=== PATIENT | male | born 1960 | race Caucasian/White ===

== ENCOUNTER → 2018-03-26 07:04 | Outpatient (CLI) | payer OTHER, SELFPAY ==
[2018-03-26 08:46] LABS: ALB/GLOB Ratio 0.9 RATIO (0.9-2.4); AST(SGOT) 20 U/L (15-37); Alanine Aminotransfer ALT/SGPT 26 U/L (16-61); Albumin, Serum 3.7 g/dL (3.2-5.0); Alkaline Phosphatase 91 U/L (45-117); Anion Gap 8 (5-15); BUN 16 mg/dL (7-18); BUN/Creat Ratio 16.9 RATIO (10-20); Calcium,Total 8.6 mg/dL (8.5-10.1); Chloride 107 mmol/L (98-107); Cholesterol 195 mg/dL (200); Creatinine, Serum 0.94 mg/dL (0.70-1.30); EST Glomerular Filtration Rate 87 mL/min (>60); Est Glom Filt Rate - Afr Amer 105 mL/min (>60); Glucose 114 mg/dL (74-106); High Density Lipoprotein 37 mg/dL; PSA,Total - Annual Screen 0.68 ng/mL (0.00-4.00); Potassium 4.4 mmol/L (3.5-5.1); Protein, Total 7.7 g/dL (6.4-8.2); Sodium Level 141 mmol/L (136-145); Triglycerides 106 mg/dL; Very Low Density Lipoprotein 21 mg/dL (5-40)
== END ==
PROVIDERS: Family Provider Family Medicine; PCP Family Medicine; Visit Provider Family Medicine
DX: E29.1 Testicular hypofunction (principal)
CPT/HCPCS: 36415; 80053; 80061; 84153; 84403; G0103

== ENCOUNTER 2018-04-18 17:00 | Outpatient (RCR) | payer OTHER, SELFPAY ==
--- NOTE | 2017-12-15 15:30 | HP.PTEVAL ---
Patient's Visit Information SABAS HENSON is a 57 year old M referred to Physical Therapy by CRISTHIAN TRAYLOR with a diagnosis of R tibial Fx. Date of Evaluation: 12/15/17 Physical Therapist: Ham Burnham PT, - Visit Plan Frequency: 2-3x /Week Duration: 4-6 Weeks Plan: R LE stretching and strengthening, balance and proprio, core, nustep, and HEP - Subjective Subjective: DOS: 09/13/17, then again o n 09/22/17. Pt reports he fractured his L Tibia and had to have an OREF placed on his R LE. Pt reports he was attempting to climb on his roof when he fell and suffered a fractured LE. Pt reports he had to go up to [employer] for [employer]. Pt notes he is slowly getting better now. Pt reports he has been NWB'ing up til one week ago, now is ambulating with 2 crutches. No prior R knee complications. No T or N at this time. No sleep diff at this time. 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 Pt has stairs at home and negotiates them one step at a time. 0/10 at rest, 5/10 at worst (walking). HEP of AP's - Pain R knee Pain Intensity (Out of 10): 0 Pain Intensity Range: 5 - Objective Palpation: Pt has 2+ pitting edema at this time. Incisions still healing. No signs of infection. Neuro: B LE sensation is WNL to light touch. Unable to assess reflexes. ROM: L knee 0-130 degrees, R knee 0-7-70. MMT: L knee 5/5 throubghout, R knee 3/5 thoughout. Girth at joint line: L knee 33 cm, R knee 38 cm - Goals Goal 1:: Decrease R LE pain x 50% to aid with IADL's Goal Time Frame: 4-6 Weeks Goal 2:: Increase R knee ROM x 40 degrees to aid with restoring a more normal gait pattern Goal Time Frame: 4-6 Weeks Goal 3:: Increase R LE strength x 1 grade to aid with RTW without limitations Goal Time Frame: 4-6 Weeks Goal 4:: I with HEP Goal Time Frame: 4-6 Weeks - Rehabilitation Potential Physical Therapy Diagnosis: R LE pain, weakness, and limited ROM secondary to R tibial Fx Rehabilitation Potential: Good - Anticipated Interventions Patient/Client Instruction: Educate patient on: Condition, Plan of Care For the Purpose of:: To improve self management Therapeutic Exercise to Include: Strength training, Endurance training, Balance training, Gait and locomotor training, Passive ROM, Active ROM, Dynamic Lumbar Stabilization For the Purpose of:: To decrease pain, To increase ROM, To improve muscle performance and motor function Cryotherapy (ice pack, ice massage): Yes For the Purpose of:: To decrease pain Thank you for the opportunity to evaluate your patient. For Medicare and Medicare HMO plans, please review the plan of care and approve it. It will need to be FAXED BACK to us at [phone] for Medicare purposes. Please let me know if there are questions or concerns regarding this plan of care. Physician Signature: Date:
--- NOTE | 2018-01-10 16:02 | HP.PTREVAL_ITS ---
DHRUV GARCIA WILLIAM It has been my pleasure to treat SABAS HENSON over the last 10 visits for R tibial Fx. Please see the progress note below for an update on the physical therapy plan of care! Subjective: Pt reports he is really sore today Objective/Function: R knee pain 10. R knee ROM 0-5-88. MMT: R knee 4/5 ext and flex. Pt tyesha all ex's well Plan Plan: Attempt to get 10 more visits to progress strengthening and ROM for R knee Goals Goal 1:: Decrease R LE pain x 50% to aid with IADL's Goal Time Frame: 4-6 Weeks Goal 2:: Increase R knee ROM x 40 degrees to aid with restoring a more normal gait pattern Goal Time Frame: 4-6 Weeks Goal 3:: Increase R LE strength x 1 grade to aid with RTW without limitations Goal Time Frame: 4-6 Weeks Goal 4:: I with HEP Goal Time Frame: 4-6 Weeks Anticipated Interventions Patient/Client Instruction: Educate patient on: Condition, Plan of Care For the Purpose of:: To improve self management Therapeutic Exercise to Include: Strength training, Endurance training, Balance training, Gait and locomotor training, Passive ROM, Active ROM, Dynamic Lumbar Stabilization For the Purpose of:: To decrease pain, To increase ROM, To improve muscle performance and motor function Cryotherapy (ice pack, ice massage): Yes For the Purpose of:: To decrease pain Please do not hesitate to contact me at [phone] by phone or Fax: if you have questions or concerns regarding this new plan of care! Sincerely, Ham Burnham, PT,
--- NOTE | 2018-02-16 16:01 | HP.PTREVAL_ITS ---
CRISTHIAN BARTLETT, It has been my pleasure to treat SABAS HENSON over the last 22 visits for R tibial Fx. Please see the progress note below for an update on the physical therapy plan of care! Subjective: No pain this date Objective/Function: R knee ROM: 0-8-103. R knee MMT: flex= 4/5, ext= 4+/5. Girth at joint line 38 cm. Pt is progressing well toward Rx goals but would benefit from further skilled PT for strength and ROM Plan Plan: ttempt to get 12 more visits Goals Goal 1:: Decrease R LE pain x 50% to aid with IADL's Goal Time Frame: 4-6 Weeks Goal 2:: Increase R knee ROM x 40 degrees to aid with restoring a more normal gait pattern Goal Time Frame: 4-6 Weeks Goal 3:: Increase R LE strength x 1 grade to aid with RTW without limitations Goal Time Frame: 4-6 Weeks Goal 4:: I with HEP Goal Time Frame: 4-6 Weeks Anticipated Interventions Patient/Client Instruction: Educate patient on: Condition, Plan of Care For the Purpose of:: To improve self management Therapeutic Exercise to Include: Strength training, Endurance training, Balance training, Gait and locomotor training, Passive ROM, Active ROM, Dynamic Lumbar Stabilization For the Purpose of:: To decrease pain, To increase ROM, To improve muscle performance and motor function Cryotherapy (ice pack, ice massage): Yes For the Purpose of:: To decrease pain Please do not hesitate to contact me at [phone] by phone or Fax: if you have questions or concerns regarding this new plan of care! Sincerely, Ham Burnham, PT,
--- NOTE | 2018-04-18 17:00 | DT_ITS ---
This patient was seen during an EMR downtime April 11, 2018 - April 18, 2018. This patient may have a combination of paper and electronic documentation or all paper documentation. All documentation is viewable within the e-chart portion of [facility] for each patient visit.
--- NOTE | 2018-04-18 17:51 | HP.PTDCSUM ---
HP - PT D/C Summary It has been my pleasure to treat SABAS HENSON under orders from CRISTHIAN BARTLETT, for the diagnosis of R tibial Fx for a total of 34 visit(s). Discharge Date: Please see the following information for a summary of their discharge status. - Subjective Subjective: Due to electronic downtime procedure, notes from 04/13/18 to 04/17/16 have been scanned. Pt reports no pain this date. - Pain R knee Pain Intensity (Out of 10): 0 - Objective Objective/Function: R knee pain 0/10. R knee ROM: 0-2-105. R knee MMT: 5/5 throughout. Pt is I with HEP - Goals Goal 1:: Decrease R LE pain x 50% to aid with IADL's Goal Progress: Goal Met Goal 2:: Increase R knee ROM x 40 degrees to aid with restoring a more normal gait pattern Goal Progress: Goal Met Goal 3:: Increase R LE strength x 1 grade to aid with RTW without limitations Goal Progress: Goal Met Goal 4:: I with HEP Goal Progress: Goal Met - Plan Plan: Discharge - D/C Information If there are questions or concerns regarding this patient's physical therapy, please feel free to call me at [phone]. Thank you for the referral of this patient. Sincerely, Ham Burnham, PT,
== END 2018-04-18 19:00 | disposition home or self-care (01) ==
LOC: PT 17:00
PROVIDERS: Family Provider Family Medicine; PCP Family Medicine
DX: S82.141D Displaced bicondylar fracture of right tibia, subsequent encounter for closed fracture with routine healing (principal)
CPT/HCPCS: 97110; 97161; 97530

== ENCOUNTER → 2018-09-10 07:00 | Outpatient (CLI) | payer OTHER, SELFPAY ==
[2018-09-10 15:18] LABS: Xtra Tube EP Lab EXTRA TUBE
[2018-09-12 14:34] LABS: AST(SGOT) 24 U/L (15-37); Alanine Aminotransfer ALT/SGPT 30 U/L (16-61); Albumin, Serum 3.8 g/dL (3.2-5.0); Alkaline Phosphatase 89 U/L (45-117); Anion Gap 10 (5-15); BUN 15 mg/dL (7-18); BUN/Creat Ratio 14.6 RATIO (10-20); Calcium,Total 8.9 mg/dL (8.5-10.1); Chloride 106 mmol/L (98-107); Creatinine, Serum 1.03 mg/dL (0.70-1.30); EST Glomerular Filtration Rate 79 mL/min (>60); Est Glom Filt Rate - Afr Amer 95 mL/min (>60); Globulin 3.9 g/dL (2.2-4.2); Glucose 101 mg/dL (74-106); Potassium 4.6 mmol/L (3.5-5.1); Protein, Total 7.7 g/dL (6.4-8.2); Sodium Level 140 mmol/L (136-145)
== END ==
PROVIDERS: Family Provider Family Medicine; PCP Family Medicine; Referring Provider Family Medicine; Visit Provider Family Medicine
DX: R73.01 Impaired fasting glucose (principal); E29.1 Testicular hypofunction
CPT/HCPCS: 36415; 80053; 84403

== ENCOUNTER → 2019-03-11 | Outpatient (CLI) | payer OTHER, SELFPAY ==
[2019-03-11 09:11] LABS: BUN 17 mg/dL (7-18); Creatinine, Serum 0.98 mg/dL (0.70-1.30); Glucose 111 mg/dL (74-106)
[2019-03-11 09:12] LABS: ALB/GLOB Ratio 1.1 RATIO (0.9-2.4); AST(SGOT) 20 U/L (15-37); Alanine Aminotransfer ALT/SGPT 26 U/L (16-61); Albumin, Serum 3.9 g/dL (3.2-5.0); Alkaline Phosphatase 80 U/L (45-117); Anion Gap 5 (5-15); BUN/Creat Ratio 17.3 RATIO (10-20); Calcium,Total 8.6 mg/dL (8.5-10.1); Chloride 107 mmol/L (98-107); EST Glomerular Filtration Rate 83 mL/min (>60); Est Glom Filt Rate - Afr Amer 101 mL/min (>60); Globulin 3.6 g/dL (2.2-4.2); Potassium 4.2 mmol/L (3.5-5.1); Protein, Total 7.5 g/dL (6.4-8.2); Sodium Level 138 mmol/L (136-145)
== END | disposition home or self-care (01) ==
LOC: LAB 06:58
PROVIDERS: Family Provider Family Medicine; PCP Family Medicine; Referring Provider Family Medicine; Visit Provider Family Medicine
DX: E29.1 Testicular hypofunction (principal); R73.01 Impaired fasting glucose
CPT/HCPCS: 36415; 80053; 84403

== ENCOUNTER → 2019-09-02 06:55 | Outpatient (CLI) | payer OTHER, SELFPAY ==
[2019-09-02 08:17] LABS: AST(SGOT) 19 U/L (15-37); Alanine Aminotransfer ALT/SGPT 29 U/L (16-61); Albumin, Serum 3.8 g/dL (3.2-5.0); Alkaline Phosphatase 85 U/L (45-117); Anion Gap 6 (5-15); BUN 12 mg/dL (7-18); BUN/Creat Ratio 11.1 RATIO (10-20); Calcium,Total 9.1 mg/dL (8.5-10.1); Chloride 107 mmol/L (98-107); Cholesterol 190 mg/dL (200); Creatinine, Serum 1.08 mg/dL (0.70-1.30); EST Glomerular Filtration Rate 74 mL/min (>60); Est Glom Filt Rate - Afr Amer 90 mL/min (>60); Globulin 3.9 g/dL (2.2-4.2); Glucose 115 mg/dL (74-106); High Density Lipoprotein 37 mg/dL; PSA,Total - Annual Screen 0.48 ng/mL (0.00-4.00); Protein, Total 7.7 g/dL (6.4-8.2); Sodium Level 138 mmol/L (136-145); Triglycerides 124 mg/dL; Very Low Density Lipoprotein 25 mg/dL (5-40)
== END ==
PROVIDERS: Family Provider Family Medicine; PCP Family Medicine; Referring Provider Family Medicine; Visit Provider Family Medicine
DX: E29.1 Testicular hypofunction (principal)
CPT/HCPCS: 36415; 80053; 80061; 84153; 84403; G0103

== ENCOUNTER 2019-10-23 15:37 | Inpatient (IN) | payer OTHER, SELFPAY ==
[2019-10-23] VITALS (13 sets, daily range): BP systolic 110–162; BP diastolic 70–102; PULSE 73–89; RESP 13–17; TEMP 36.4–36.8; O2SAT 95–98; BMI 29.7; BMI 30.2; BMI 30.3
--- NOTE | 2019-10-23 15:44 | EKG12_ITS ---
Test Reason : CP Blood Pressure : / mmHG Vent. Rate : 076 BPM Atrial Rate : 076 BPM P-R Int : 158 ms QRS Dur : 090 ms QT Int : 368 ms P-R-T Axes : 065 026 068 degrees QTc Int : 414 ms Normal sinus rhythm Inferior infarct , age undetermined Anterior injury pattern ACUTE CA / STEMI Abnormal ECG Confirmed by DILLAN CHANDLER, JALEN ([id number]), greeting card editor AR NAVARRO ([id number]) on 10/25/2019 11:57:34 AM Referred By: Minh Ballesteros Confirmed By:JALEN GRIMALDO MD
--- NOTE | 2019-10-23 15:48 | NURSING ---
GOING TO [employer] [facility] DEVEL[facility]
[2019-10-23] MEDS: Heparin Injection (Vial) 5,000 UNIT/ML VIAL 4000 UNIT IV (15:49)
[2019-10-23] MEDS: TICAGRELOR 90 MG TABLET 180 MG PO (15:49)
[2019-10-23] MEDS: Aspirin 81 MG TAB.CHEW 324 MG PO (15:49)
--- NOTE | 2019-10-23 15:52 | ED.VISSUMM ---
- ER Visit Summary Date of Service: 10/23/19 Chief Complaint: Chest pain History of Present Illness: The patient is a [address] Candelario. He reports he has no medical problems, family history of coronary artery disease, and does not smoke. He has chest pain that began at approximately noon while he was at rest. Is a substernal pressure that waxes and wanes. Radiates to both axilla. It is 9 at 10 at worst 9-10 currently. Is worsened by nothing including exertion. Is also relieved by nothing. He has been nauseated, diaphoretic, and short of breath with this. He has never had anything like this before. Physical Examination: Vitals: Stable. Afebrile. General: Well-nourished and well-developed. Head: Normocephalic atraumatic. Neck: Supple, no lymphadenopathy. No JVD. Nontender. Cardiovascular: Regular rate and rhythm. No murmurs. Respiratory: No respiratory distress. Clear to auscultation bilaterally. Abdominal: Soft, nontender, nondistended, normal bowel sounds. No guarding, rebound, or peritoneal signs. Back: Nontender. Extremities: Nontender, no edema. Skin: Normal color, no rash. Neurologic: Alert and oriented ?3. Cranial nerves II through XII are intact. Normal strength and sensation. Psych: Normal affect. Test Results: EKG shows an anterior/inferior ST elevation OH. Emergency Department Course and Treatment: Patient was given an aspirin and Brilinta p.o. He was given 4000 unit bolus of heparin IV. Treatment Plan: Patient was discussed with Dr. Bergeron. He will be transferred to the [facility] for further evaluation and treatment. Disposition: Admitted in critical condition. Impression: 1. ST elevation OH. This note was generated with [employer] dictation software. It may contain incorrect words, spelling, and punctuation that were not noted in review of the chart prior to signing ED Disposition - Plan for ED Patient: Referrals: Jerson Candelario MD [Primary Care Provider] -
[2019-10-23] MEDS: 0.9% Normal Saline 1,000 ML 150 ML IV ×3 (15:53→21:20)
--- NOTE | 2019-10-23 15:56 | NURSING ---
[employer] DEVELOPER, THEN ICU DAVIS STEMI
[2019-10-23 16:01] LABS: Absolute Lymphocyte Count 3.71 X10^3/uL (0.83-4.51); Absolute Neutrophil Count 6.6 X10^3/uL (2.0-7.7); Basophil# 0.04 X10^3/uL; Basophil% 0.3 % (0-1); Eosinophil# 0.28 X10^3/uL; Eosinophils% 2.3 % (0-5); Hemoglobin 16.5 g/dL (13.0-16.5); Lymphocyte # 3.71 X10^3/ul (4.0); Lymphocyte % 30.6 % (19-41); Mean Corp Hgb Conc 34.4 g/dL (32-36); Mean Corpuscular Hgb 29.6 pg (27.0-32.0); Mean Platelet Vol. 10.5 fl (6.2-12.0); Monocyte# 1.42 X10^3/uL; Monocyte% 11.7 % (0-10); NRBC Flagged by Analyzer 0 % (0-5); Neutrophil # 6.59 X10^3/uL (2.7-7.7); Neutrophil % 54.4 % (47-70); Platelet Count 289 K/mm3 (150-450); RBC Distribution Width CV 13.2 % (11.6-14.6); RBC Distribution Width SD 41.1 fl (35.1-43.9); Red Blood Count 5.58 M/mm3 (4.6-6.2); White Blood Count 12.1 K/mm3 (4.4-11.0)
--- NOTE | 2019-10-23 16:10 | CM.ED ---
Social Work Responding to Stemi Alert. Spouse present. Support provided. Howard De La Cruz present as well and escorting patient spouse to waiting room. Active listening and support provided. Kayla BROWN, RUBIN
[2019-10-23 16:20] LABS: Anion Gap 6 (5-15); BUN 14 mg/dL (7-18); BUN/Creat Ratio 11.7 RATIO (10-20); Calcium,Total 8.8 mg/dL (8.5-10.1); Chloride 105 mmol/L (98-107); EST Glomerular Filtration Rate 66 mL/min (>60); Est Glom Filt Rate - Afr Amer 79 mL/min (>60); Estimated Creatinine Clearance 65.46 ml/min; Glucose 145 mg/dL (74-106); Potassium 3.6 mmol/L (3.5-5.1); Sodium Level 138 mmol/L (136-145)
--- NOTE | 2019-10-23 16:20 | CHAPLAIN ---
Type of Pastoral Visit ___ Initial Visit ___ Follow-up Visit ___ On-call Visit ___ General Patient Visit ___ Spiritual Assessment ___ Family Conference ___ Bereavement _x__ Rapid Response ___ Code Blue ___ Other (describe below) Pastoral Care Referral From ___ Patient ___ Family ___ Nurse ___ Physician _x__ Services Tech ___ Utilization Manager _x__ Other (describe below) Sacrament/Intervention ___ Active listening ___ Anointing ___ Religion ___ Bereavement ___ Communion ___ Breanne exploration ___ ___ Life review _x__ Prayer ___ Reconciliation ___ Sacrament of Sick _x__ Supportive presence ___ Wedding ___ Other (describe below) Pastoral Comments responded to Stemi Alert in ED; met with spouse of patient along with the SW; escorted spouse to advertising dispatch clerk waiting area as patient was being transported there for a Cath; sat with patient until friend and daughter came to be there; gave water and offered future support as needed
[2019-10-23 16:41] LABS: International Normalized Ratio 1.1; Partial Thromboplast Time 25.3 Seconds (24.1-36.2); Prothrombin Time (Protime)PT. 13.5 SECONDS (11.7-14.9)
--- NOTE | 2019-10-23 16:53 | ECHOD_ITS ---
Reason For Study: S/P OR Procedure This was a 2D Doppler, Color Flow transthoracic echocardiogram. Exam performed portable in ICU/CCU. Left Ventricle Normal size and thickness. The estimated ejection fraction is 65 %. Stage 1 diastolic dysfunction. No regional wall motion abnormalities noted. Right Ventricle Normal size and thickness. Normal systolic function. Atria Normal left atrium. Normal right atrium. Normal atrial septum. Mitral Valve The mitral valve is structurally normal. No prolapse or stenosis seen. Tricuspid Valve Normal tricuspid valve. Mild (1+) tricuspid valve insufficiency. Right ventricular systolic pressure estimated to be 29 mmHg. Aortic Valve Normal aortic valve. Trisinus/trileaflet aortic valve. Pulmonic Valve Normal pulmonic valve. Great Vessels Normal aortic root. Normal arch. Normal inferior vena cava. Inferior vena cava collapse with sniff. Pericardium/Pleural No pericardial effusion. MMode/2D Measurements & Calculations LVIDd: 4.7 cm IVSd: 0.94 cm Ao root diam: 3.3 cm LVIDs: 3.2 cm LVPWd: 1.0 cm RVDd: 3.2 cm FS: 30.5 % LAV(MOD-bp): 46.5 ml LA A4 area: 15.9 cm2 LA dimension(2D): 3.8 cm LAV(MOD-bp) Indexed: 22.3 ml/m2 LAV(MOD-sp2): 49.7 ml LAV(MOD-sp4): 42.3 ml RA A4 area: 13.5 cm2 Time Measurements MV dec time: 0.18 sec Doppler Measurements & Calculations MV E max jose: 73.9 cm/sec Lat Peak E' Jose: 12.7 cm/sec Med Peak E' Jose: 8.3 cm/sec MV A max jose: 64.1 cm/sec E/E' lat: 5.8 E/E' med: 8.8 MV E/A: 1.2 Ao V2 max: 135.3 cm/sec LV V1 max: 157.1 cm/sec PA V2 max: 160.2 cm/sec Ao max P.6 mmHg LV V1 max P.9 mmHg Ao V2 mean: 116.0 cm/sec LV V1 mean P.1 mmHg Ao mean P.0 mmHg LV V1 mean: 107.0 cm/sec Ao V2 VTI: 32.1 cm LV V1 VTI: 28.6 cm TR max jose: 244.4 cm/sec TR max P.9 mmHg Interpretation Summary The estimated ejection fraction is 65 %. Stage 1 diastolic dysfunction. Mild (1+) tricuspid valve insufficiency. Right ventricular systolic pressure estimated to be 29 mmHg. There is no comparison study available. Ordering Physician: Cornell Bergeron Referring Physician: Presley Candelario Performed By: Sharlene Carmen RDCS, RVT
--- NOTE | 2019-10-23 16:53 | EKG12_ITS ---
Test Reason : MORNING EKG Blood Pressure : / mmHG Vent. Rate : 075 BPM Atrial Rate : 075 BPM P-R Int : 166 ms QRS Dur : 098 ms QT Int : 364 ms P-R-T Axes : 064 -07 069 degrees QTc Int : 406 ms Normal sinus rhythm Inferior infarct , age undetermined , cannot be excluded Abnormal ECG Confirmed by DILLAN CHANDLER, JALEN ([id number]), research editor AR NAVARRO ([id number]) on 10/25/2019 1:31:30 PM Referred By: Minh Ballesteros Confirmed By:JALEN GRIMALDO MD
--- NOTE | 2019-10-23 16:53 | EKG12_ITS ---
Test Reason : POST PCI Blood Pressure : / mmHG Vent. Rate : 078 BPM Atrial Rate : 078 BPM P-R Int : 156 ms QRS Dur : 086 ms QT Int : 364 ms P-R-T Axes : 060 024 062 degrees QTc Int : 414 ms Normal sinus rhythm Inferior infarct , age undetermined Abnormal ECG Confirmed by DILLAN CHANDLER, JALEN ([id number]), film and video editor AR NAVARRO ([id number]) on 10/25/2019 1:32:10 PM Referred By: Minh Ballesteros Confirmed By:JALEN GRIMALDO MD
--- NOTE | 2019-10-23 16:59 | CL.I_ITS ---
Patient Name: SABAS HENSON Study Date: 10/23/2019 Performing: Cornell Bergeron MD Ht: 68.89 inches 175 cm : 1960 Wt: 200.62 lbs 91 kg Age: 59 Gender: male BSA: 2.07 PROCEDURE(S) PERFORMED QL75-RTZ/COR/LV QY70-XTI, MALIK AND/OR PTCA, ARTERY OR GRAFT, SINGLE VESSEL CLINICAL PROFILE AND CO-MORBIDITIES Indications: ACS <= 24 hrs, Suspected CAD Heart Failure: NYHA Class: 1, Newly Diagnosed: Yes Stress/Imaging Stress/Image Study Performed: No Angina Classification Anginal Classification w/in 2 Weeks: CCS IV CAD Presentations: Unstable angina. STEMI. 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 % Elevated Left Ventricular End Diastolic Pressure Successful Emergent Heparin/Integrilin assisted PTCA/MALIK mid LAD with a 2.5 x 38 Promus Synergy, post dilated throughout at 8-9 atim with a 3.0 x 8 NC balllon; 85%-->0%, no dissection. Successful Emergent Heparin/Integrilin assisted PTCA/MALIK proximal LAD with a 2.5 x 32 Promus Synergy , post dilated throughout with a 3.0 x 8 NC balloon at 10-15 jaimie; 85%-->0%, no dissection or encroach ment into DIAG vessels. RECOMMENDATIONS Referred for immediate PCI Highly recommend quitting all tobacco products Follow up with primary unloader Risk factor modification ASA Indefinitley Plavix for at least 12 months Routine post interventional care Refer for Outpatient Cardiac Rehab Manual sheath removal per protocol Follow up with Dr. Bergeron Manual sheath removal in am. Elective PCI of LCX in 2-3 weeks. Stress testing of this vessel is problematic given recent STEMI. DESCRIPTION OF PROCEDURE The patient arrived to the procedure lab. The risks and benefits of the procedure as well as a full d escription of our services here and lack of surgical backup were fully explained to the patient and/o r their significant other prior to the catheterization. The Timeout was completed, verifying the monroe ect patient and procedure. The patient's procedural site was prepped and draped in the usual fashion. Local anesthetic was given subcutaneously to right groin region with Lidocaine 2%. Using a modified Seldinger technique, arterial access was obtained via the right femoral artery, a 6Fr sheath was inse rted. Right Coronary Artery selective angiography was then performed in multiple views using a 4 Fr. 3DRC catheter. Left Coronary Artery selective angiography was performed in multiple views using a 6 Fr. EBU 3.75 guide catheter. Left Ventriculography was performed in ROSAS projection using a 4 Fr. Pigt ail catheter. LV to AO pullback pressures were then recorded Guide catheter was inserted and engaged into the LCA. Runthrough Guide wire was advanced to the L AD. Emerge 2.0 x 12 Balloon catheter was inserted. Balloon catheter was advanced across lesion in the LAD, mid. PTCA balloon inflated at 6 atms for 7 secs. PTCA balloon inflated at 6 atms for 3 secs. PT CA balloon inflated at 8 atms for 5 secs. PTCA balloon inflated at 8 atms for 10 secs. synergy 2.5 x 38 Drug Eluting stent was inserted. Drug Eluting stent was advanced across the lesion in the LAD, mid . Synergy 2.5 x 32 Drug Eluting stent was inserted. Drug Eluting stent was advanced across the lesion in the LAD, proximal. NC Emerge 3.0 x 8 Balloon catheter was inserted. Balloon catheter was advanced across lesion in the LAD, proximal. NC 3.0 x 8 Balloon catheter was reinserted. Balloon catheter was advanced across lesion in the LAD, mid. Balloon catheter was repositioned to additional lesion in th e LAD, proximal. The arterial sheath was sutured in place and capped CORONARY ANGIOGRAPHY DOMINANCE: Right Dominant LEFT HEART ASSESSMENT Left Ventricular Ejection Fraction: by LV Gram 50 % Depressed Left Ventricular systolic function LVEDP: 29 mmHg Elevated Left Ventricular End Diastolic Pressure Anterior Hypokinesis - Mild. Apical Hypokinesis - Mild LEFT MAIN: Angiographically normal LEFT ANTERIOR DESCENDING ARTERY: PROX LAD: 75 % Stenosis MID LAD: 85 % Stenosis CIRCUMFLEX ARTERY: MID CIRC: 75 % Stenosis OM 1: Ostial - Moderate luminal irregularities up to 50% RIGHT CORONARY ARTERY: PROX RCA: Mild luminal irregularities less than 30% MID RCA: Mild luminal irregularities less than 30% INTERVENTION INFORMATION LESION SITE: LAD (Mid) Lesion Complexity: High/C, lesion at bifurcation: No, thrombus present: No, lesion length: 38 mm, cul prit lesion: Yes Pre Stenosis: 85 % Pre intervention RITA flow: 3 PROCEDURE: Drug Eluting Stent with pre and post dilatation Post Stenosis: 0 % Post intervention RITA flow: 3 Lesion Devices: Medtronic 6 Fr EBU3.75 100cm Guide Catheter Terumo .014 Runthrough Extra Floppy 180cm straight Rolando Sci EMERGE MR 2.00x12 BALLOON Rolando Sci Synergy MR MALIK 2.50x38 LESION SITE: LAD (Proximal) Lesion Complexity: High/C, lesion at bifurcation: No, thrombus present: No, lesion length: 32 mm, cul prit lesion: No Pre Stenosis: 85 % Pre intervention RITA flow: 3 PROCEDURE: Drug Eluting Stent with pre and post dilatation Post Stenosis: 0 % Post intervention RITA flow: 3 Lesion Devices: Medtronic 6 Fr EBU3.75 100cm Guide Catheter Terumo .014 Runthrough Extra Floppy 180cm straight Rolando Sci Synergy MR MALIK 2.50x32 COMPLICATIONS No Complications PROCEDURE MEDICATIONS Fentanyl 25 mcg IV Oxygen: 2 L/min via nasal cannula Nitro 200 mcg IC 10/23/2019 16:07:31 IV Bolus: .9 NaCl 950ml total 10/23/2019 15:59:46 SUMMARY OF HEMODYNAMIC DATA Time AIR REST ECG 15:54:27 AO 139/69 (97) SA 16:02:00 AO 150/73 (104) 16:02:52 LV 153/-12, 28 16:29:32 LV 156/-11, 29 16:29:39 LVp 153/-11, 28 16:29:44 AOp 152/79 (111) 16:29:49 Signed By Cornell Bergeron MD On 10/23/2019 4:57:50 PM Cornell Bergeron MD
[2019-10-23 17:32] LABS: Cholesterol 207 mg/dL (200); High Density Lipoprotein 38 mg/dL; Triglycerides 226 mg/dL; Very Low Density Lipoprotein 45 mg/dL (5-40)
--- NOTE | 2019-10-23 17:43 | PCM.HP.STD ---
Problem List (1) STEMI (ST elevation myocardial infarction) Status: Acute (2) Hypogonadism in male Status: Chronic History of Present Illness Date of Admission: 10/23/19 Chief Complaint: Chest pain today The patient is a 59 year old M with history of possible primary hypogonadism on testosterone gel came to ER with sudden onset of chest pain at rest. He described chest pain as substernal pressure like elephant sitting on the chest with radiation to the both arms and tingling in fingers. Patient also felt like he could not breathe. It was 9/10 intensity. No exacerbating, relieving or precipitating factor. In ED, patient was found short of breath, diaphoretic nauseated. EKG was done which shows hyperacute T waves in anterior leads, V2 to V5 and slight ST elevation in inferior leads suggestive of anterior inferior STEMI. Patient was given aspirin and Brilinta and 4000 units of IV heparin bolus and taken to cardiac [facility] directly as per STEMI protocol. [] Past Medical History Past Medical History (Chronic Problems): Chronic Problems Hypogonadism in male (Chronic) Allergies No Known Allergies Allergy (Verified 10/23/19 15:40) Home Medications: Ambulatory Orders Medication Instructions Recorded Testosterone [Androgel] 5 gm TD DAILY 09/12/17 Smoking Status: Former smoker - *Family History Maternal History Items: Heart Disease - She in sleep possible of heart attack in her 70s Review of Systems Constitutional: Denies: Chills, Fever, Weight Change HEENT: Denies: Head Aches, Sinus Congestion, Sinus Drainage Cardiovascular: Reports: Chest Pain, Chest Pressure, Chest Tightness. Denies: Palpitations Respiratory: Reports: Shortness of Breath, Shortness of breath at rest. Denies: Cough, Sputum production Gastrointestinal: Denies: Abdominal Pain, Nausea, Vomiting Genitourinary: Denies: Dysuria Musculoskeletal: Denies: Joint Pain, Joint Tenderness Skin: Denies: Rash, Wounds Neurological: Denies: Numbness, Tingling, Focal weakness Psychiatric: Denies: Anxiety, Depression, Homicidal Ideations, Suicidal Ideations Hematologic/ Lymphatic: Denies: Easy Bruising, Easy Bleeding VTE Information - Inpt Only VTE Present on Admission: No VTE Mechan Device Prophylaxis: SCD's VTE Pharm Prophylaxis ordered?: Yes Patient Problems: Active and Suspected Problems STEMI (ST elevation myocardial infarction) (Acute) - Physical Exam Vitals/I&O's: Vital Signs Temp Pulse Resp BP Pulse Ox 97.8 F 74 16 162/102 H 96 10/23/19 15:37 10/23/19 15:37 10/23/19 15:37 10/23/19 15:37 10/23/19 15:37 Oxygen Flow Rate (L/min) 2 Oxygen Delivery Method Nasal Cannula Weight: 205 lb 0.478 oz Body Mass Index (BMI) 30.2 General: Alert, Oriented x3, Cooperative HEENT: Atraumatic, PERRLA, EOMI, Normocephalic Neck: Supple, No JVD, Negative Carotid Bruits Lungs: Clear to auscultation, Normal air movement, No rhonchi, No wheeze, No rales Cardiovascular: Regular rate, Regular Rhythm, Normal S1, Normal S2, No murmurs Abdomen: Bowel Sounds Present, Soft, Non Tender, Non-Distended Extremities: No edema, Capillary Refill Less than 3 Seconds, - - In right groin, patient has sheath left. No hematoma or active bleeding. Slight blood in the tube in the right groin. Skin: No rashes, No breakdown Musculoskeletal: No Tenderness to Palpation of Joints or Extremities Neurological: Cranial nerves II-XII grossly intact Psych/Mental Status: Normal Affect, Appropriate Laboratory Results 10/23/19 15:40: WBC 12.1 H, RBC 5.58, Hgb 16.5, Hct 48.0, MCV 86.0, MCH 29.6, MCHC 34.4, RDW Std Deviation 41.1, RDW Coeff of Brice 13.2, Plt Count 289, MPV 10.5, Immature Gran % (Auto) 0.700, Neut % (Auto) 54.4, Lymph % (Auto) 30.6, [place] % (Auto) 11.7 H, Eos % (Auto) 2.3, Baso % (Auto) 0.3, Absolute Neuts (auto) 6.6, Absolute Lymphs (auto) 3.71, Nucleated RBC % 0 10/23/19 15:40: PT 13.5, INR 1.1, APTT 25.3 10/23/19 15:40: Sodium 138, Potassium 3.6, Chloride 105, Carbon Dioxide 27.0, Anion Gap 6, BUN 14, Creatinine 1.20, Estim Creat Clear Calc 65.46, Est GFR (MDRD) Af Amer 79, Est GFR (MDRD) Non-Af 66, BUN/Creatinine Ratio 11.7, Glucose 145 H, Calcium 8.8, Troponin I 0.079 H 10/23/19 15:40: Triglycerides 226 H, Cholesterol 207 H, LDL Cholesterol 124, VLDL Cholesterol 45 H, HDL Cholesterol 38 L Current Medications Acetaminophen (Tylenol) 650 mg PO Q6H PRN PRN PRN Reason: Pain Score 1-3/10 Aspirin (Ecotrin) 81 mg PO DAILY@0800 [facility] Atorvastatin Calcium (Lipitor) 80 mg PO QHS [facility] Atropine Sulfate () 0.5 mg IV UD PRN PRN Reason: HR <50 bpm Carvedilol (Coreg) 3.125 mg PO BID [facility] Diazepam (Valium) 5 mg PO Q6H PRN PRN PRN Reason: BACK SPASMS/ANXIETY Heparin Sodium (Beef Lung) (Heparin 500 Unit/5 Ml (100/Ml)) 500 unit IV UD PRN PRN Reason: HEPARIN FLUSH Sodium Chloride () 1,000 mls @ 150 mls/hr IV .Q6H40M [facility] Last Admin: 10/23/19 15:53 Dose: 150 mls/hr Documented by: Sodium Chloride () 1,000 mls @ 150 mls/hr IV .Q6H40M [facility] Stop: 10/23/19 23:32 Last Admin: 10/23/19 17:14 Dose: 150 mls/hr Documented by: Eptifibatide (Integrilin) 75 mg in 100 mls @ 14.592 mls/hr CONT INF .Q6H52M [facility] Last Admin: 10/23/19 17:13 Dose: 2 mcg/kg/min, 14.6 mls/hr Documented by: Sodium Chloride () 1,000 mls @ 1 mls/hr IV .Q48H PRN PRN Reason: Saline Flush Labetalol HCl (Trandate) 5 mg IV X1 PRN PRN Reason: SBP > 160 when pulling sheath Lisinopril (Zestril) 5 mg PO DAILY [facility] Metoclopramide HCl (Reglan) 5 mg IV Q6H PRN PRN PRN Reason: NAUSEA/VOMITING Morphine Sulfate () 2 mg IV Q4H PRN PRN PRN Reason: Mild back pain (1-10/10) Nitroglycerin (Nitrostat) 0.4 mg SUBLINGUAL Q5M PRN PRN Reason: CARDIAC/CHEST PAIN Sodium Chloride () 500 ml IV BOLUS PRN PRN Reason: VASO-VAGAL PROTOCOL Sodium Chloride () 10 - 40 ml IV UD PRN PRN Reason: SALINE FLUSH Ticagrelor (Brilinta) 90 mg PO BID [facility] Assessment/Plan All Active Problems STEMI (ST elevation myocardial infarction) (Acute) The patient is a 59 year old M with history of possible primary hypogonadism on testosterone gel came to ER with sudden onset of chest pain at rest. EKG was done which shows hyperacute T waves in anterior leads, V2 to V5 and slight ST elevation in inferior leads suggestive of anterior inferior STEMI. Patient was given aspirin and Brilinta and 4000 units of IV heparin bolus and taken to cardiac [facility] directly as per STEMI protocol. First troponin 0 0.079. [] 1. Anterior wall STEMI: In [facility], patient was found to have double vessel coronary artery disease of LAD and left circumflex. Proximal LAD 75%, mid LAD 85%. Mid circumflex 75%. OM1 ostial moderate up to 50%. Mild segmental LV systolic dysfunction. EF 50% by LV gram. 2 stents were put in in proximal and mid LAD. Currently patient is on Integrilin drip. On aspirin, atorvastatin, Coreg, lisinopril. Presented to be started from tomorrow. 2D echo ordered. Fasting blood profile TG 226, TC 207, LDL 124 and HDL 45. 2. Dyslipidemia: As mentioned above on high-intensity atorvastatin. 3. Hypertension: In ED, BP was 162/102. Currently 141/74. On lisinopril and Coreg. 4. Primary hypogonadism: On testosterone gel. Probably needs to be directed by PCP and follow-up serum testosterone level along with hematocrit and sleep study. 5. DVT prophylaxis: Start Lovenox DVT prophylaxis dose from 24 hours of cardiac cath. Bilateral SCDs Code Visit Inpatient E&M: 89892 Init Hosp L3
--- NOTE | 2019-10-23 21:09 | RAD_ITS ---
STUDY: X-RAY CHEST REASON FOR EXAM: Male, 59 years old. Heart catheter TECHNIQUE: Single frontal view of the chest. COMPARISON: September 22, 2017 FINDINGS: The lungs are clear and expanded. There is no demonstrated pleural abnormality. Normal size heart. Normal mediastinum and hector. Normal visualized pulmonary arteries. Normal visualized aortic arch and descending thoracic aorta. Normal visualized thoracic spine. Normal visualized ribs, clavicles, and shoulders. There is no demonstrated abnormality of the visualized soft tissue structures of the upper abdomen. RAD/Chest 1 View (Portable) IMPRESSION: Normal x-ray examination of the chest. Electronically Signed: Jagjit Gonzalez MD at 21:54 EST , Service support ,
[2019-10-23] MEDS: Morphine 2 MG/ML Syringe IV (21:19)
[2019-10-23] MEDS: TICAGRELOR 90 MG TABLET PO (21:20)
[2019-10-23] MEDS: Carvedilol 3.125 MG TABLET PO (21:21)
[2019-10-23] MEDS: Atorvastatin Calcium 80 MG Tablet PO (21:21)
[2019-10-23 23:56] LABS: Bedside Glucose 136 mg/dL (70-110)
[2019-10-24] VITALS (31 sets, daily range): BP systolic 96–146; BP diastolic 55–79; PULSE 68–104; RESP 15–23; TEMP 36.6–37.2; O2SAT 92–96; BMI 29.7
[2019-10-24] MEDS: 0.9% Normal Saline 1,000 ML 150 ML IV (04:04)
[2019-10-24] MEDS: Morphine 2 MG/ML Syringe IV ×2 (04:04→09:37)
[2019-10-24 04:25] LABS: Hematocrit 43.8 % (40-54); Hemoglobin 14.8 g/dL (13.0-16.5); Mean Corp Hgb Conc 33.8 g/dL (32-36); Mean Corpuscular Volume 85.9 fL (80-94); Mean Platelet Vol. 10.7 fl (6.2-12.0); Platelet Count 265 K/mm3 (150-450); RBC Distribution Width CV 13.3 % (11.6-14.6); RBC Distribution Width SD 41.6 fl (35.1-43.9); White Blood Count 13.9 K/mm3 (4.4-11.0)
[2019-10-24 04:39] LABS: ALB/GLOB Ratio 0.9 RATIO (0.9-2.4); AST(SGOT) 45 U/L (15-37); Alanine Aminotransfer ALT/SGPT 26 U/L (16-61); Albumin, Serum 3.3 g/dL (3.2-5.0); Alkaline Phosphatase 77 U/L (45-117); Anion Gap 5 (5-15); BUN 11 mg/dL (7-18); Calcium,Total 7.9 mg/dL (8.5-10.1); Chloride 108 mmol/L (98-107); Creatinine, Serum 0.92 mg/dL (0.70-1.30); EST Glomerular Filtration Rate 89 mL/min (>60); Est Glom Filt Rate - Afr Amer 108 mL/min (>60); Estimated Creatinine Clearance 85.39 ml/min; Globulin 3.7 g/dL (2.2-4.2); Glucose 128 mg/dL (74-106); Potassium 3.8 mmol/L (3.5-5.1); Sodium Level 138 mmol/L (136-145)
[2019-10-24 07:05] LABS: Bedside Glucose 133 mg/dL (70-110)
--- NOTE | 2019-10-24 07:54 | CRPHASE1_ITS ---
Patient Communication PHII Cardiac Rehab Discussed with Patient:: Yes Guide to Cardiac Rehab Given to Patient:: Yes Cardiac Rehab Facility Choice List Given to Patient:: Yes Choice Program [facility] CR PHII:: Communication Given to CR, Refer to [employer] Risk Factors/Lifestyle Smoking Status: Former smoker Hx Hypertension: Yes - pt states newly diagnosed Hx Diabetes Mellitus Type 1: No Hx Diabetes Mellitus Type 2: No Hx Dyslipidemia: Yes - pt states not previously diagnosed Height: 5 ft 9 in Weight:: 201 lb BMI: 29.7 ETOH: No Substance Abuse: No Laboratory Values: Cardiac Rehab Phase I Labs Triglycerides 226 mg/dL (-199) H 10/23/19 15:40 Cholesterol 207 mg/dL (200) H 10/23/19 15:40 LDL Cholesterol 124 mg/dL (0-130) 10/23/19 15:40 HDL Cholesterol 38 mg/dL (40-) L 10/23/19 15:40 Phase I Education Given On:: [place], Nutrition, Antiplatelet medication, CHF, Smoking cessation, Diabetes - Type I, Diabetes - Type II Issues Affecting Care:: None Knowledge of Condition:: No - new cardiac pt Hospital Course Pain Description: Pressure - like elephant sitting on chest Medical/Surgical History MD:: Yes CAD:: Yes Pulmonary:: No COPD:: No Asthma:: No Diabetes:: No Hypertension:: Yes Dyslipidemia:: Yes PE:: No DVT:: Yes GERD:: Yes Cancer:: No Renal:: No Thyroid:: No Depression:: No Anxiety:: No CABG: No PTCA:: Yes ICD:: No Pacemaker:: No Discharge/Home/Social Eval Discharge Disposition: Home Cardiac Rehabilitation Info Cardiac Rehabilitation Program Information: Cardiac Rehabilitation is important for patients like you who are recovering from a heart problem. Cardiac rehabilitation programs are recognized as integral to the continued care of the patient with coronary heart disease. The cardiac rehabilitation program is designed to optimize a patient's physical, psychological, and social functioning. Health career education teacher work in cardiac rehabilitation programs and assist you with getting the treatments you need to get stronger and healthier - like exercise, healthy eating habits, and medications. Cardiac rehabilitation has been show to help people with heart problems live longer and have better life enjoyment than people who do not go to cardiac rehabilitation. Please contact the Cardiac Rehabilitation Program at [facility] at in two weeks if you have not heard from them.
--- NOTE | 2019-10-24 07:58 | CRPH1.INSTRU ---
General Education CAD and cardiac anatomy and function:: Not instructed Explanation of diagnoses and procedures:: Not instructed Sign/Symptoms of [place]:: Not instructed Antiplatelet therapy: Patient communicates acknowledgment, Needs reinforcement Proper use of NTG-SL: Not instructed Emergency procedures and activation of EMS: Patient communicates acknowledgment Compliance of all prescribed medications: Patient communicates acknowledgment Smoking Patient Nicotine/Smoking Risk Factors Are:: Non-smoker - former smoker Nicotine/Smoking Response Code:: Not instructed Dyslipidemia Patient Dyslipidemia Risk Factors Are:: Total Cholesterol - 207, Triglycerides - 226, HDL - 38, LDL - 124 Recommendations Include:: Lipid profile provided Dyslipidemia Response Code:: Not instructed Overweight/Obesity Patient Overweight/Obesity Risk Factors Are:: Overweight = 26-29 Recommendations Include:: Weight loss of 5-10%, Reduced calorie diet, Exercise 5-7 times/week Overweight/Obesity:: Not instructed Hypertension Patient Hypertension Risk Factors Are:: No documented hx of HTN - pt states he was not previously treated for HTN Hypertension:: Not instructed Heart Disease Heart Disease Response Code:: Not instructed Diabetes Patient Diabetes Risk Factors Are:: No documented hx of diabetes Metabolic Syndrome Patient Metabolic Syndrome Risk Factors Are [3 of 5]:: High triglyceride >150, Hypertension, Low HDL <40 [male] or < 50 [female] Metabolic Syndrome Response Code:: Not instructed Sedentary Sedentary Response Code:: Not instructed Stress Stress Response Code:: Not instructed
--- NOTE | 2019-10-24 08:16 | PN.CARD_ITS ---
Subjectve: Patient doing very well this morning, no 24-hour events. No chest pain, telemetry showed normal sinus rhythm with rare PVC. EKG shows normal sinus r hythm with complete resolution of his anterior ST and T wave changes. Peak troponin 2.5. Hemoglobin and creatinine within nominal limits. Right groin with sheath in place and no evidence of hematoma or tenderness. 2+ DP and PT pulses bilaterally. Objective: Vital Signs Temp Pulse Resp BP Pulse Ox 99 F 77 23 H 141/71 H 95 10/24/19 08:00 10/24/19 08:00 10/24/19 08:00 10/24/19 08:00 10/24/19 08:00 Oxygen Flow Rate (L/min) 2 Oxygen Delivery Method Room Air Weight: 201 lb Body Mass Index (BMI) 30.2 Intake and Output for Last 24 Hours 10/22/19 10/23/19 10/24/19 23:59 23:59 23:59 Intake Total 1894.39 / 1954.39 2195.30 / 2195.30 Output Total 200 / 800 1000 / 1000 Balance 1694.39 / 1154.39 1195.30 / 1195.30 General: Awake, Alert, Oriented x 3 HEENT: PERRL, EOMI, Sclera Non Icteric Neck: Supple, Good ROM, No Lymph Node Enlargement Lungs: Clear to auscultation Cardiovascular: Regular Rhythm, Normal S1, Normal S2, No Murmurs, No Rubs, No Gallops Vascular: No Carotid Bruits, Normal Femoral Pulses, Normal Radial Pulses, Normal Dorsalis Pedal Pulse, Normal Posterior Tibial Pulses Abdomen: Bowel Sounds Present, Soft, Non Tender, No HSM, No Organomegaly Extremities: No Cyanosis, No Clubbing, No edema Neurological: No Focal Motor or Sensory Deficit 10/23/19 15:40: WBC 12.1 H, RBC 5.58, Hgb 16.5, Hct 48.0, MCV 86.0, MCH 29.6, MCHC 34.4, Plt Count 289, MPV 10.5, Immature Gran % (Auto) 0.700, Neut % (Auto) 54.4, Lymph % (Auto) 30.6, [place] % (Auto) 11.7 H, Eos % (Auto) 2.3, Baso % (Auto) 0.3, Absolute Neuts (auto) 6.6, Nucleated RBC % 0 10/23/19 15:40: PT 13.5, INR 1.1, APTT 25.3 10/23/19 15:40: Sodium 138, Potassium 3.6, Chloride 105, Carbon Dioxide 27.0, Anion Gap 6, BUN 14, Creatinine 1.20, Est GFR (MDRD) Af Amer 79, Est GFR (MDRD) Non-Af 66, BUN/Creatinine Ratio 11.7, Glucose 145 H, Calcium 8.8, Troponin I 0.079 H 10/23/19 15:40: Triglycerides 226 H, Cholesterol 207 H, LDL Cholesterol 124, VLDL Cholesterol 45 H, HDL Cholesterol 38 L 10/23/19 18:30: Troponin I 0.799 H* 10/23/19 21:25: Troponin I 2.350 H* 10/24/19 04:10: WBC 13.9 H, RBC 5.10, Hgb 14.8, Hct 43.8, MCV 85.9, MCH 29.0, MCHC 33.8, Plt Count 265, MPV 10.7 10/24/19 04:10: Sodium 138, Potassium 3.8, Chloride 108 H, Carbon Dioxide 25.0, Anion Gap 5, BUN 11, Creatinine 0.92, Est GFR (MDRD) Af Amer 108, Est GFR (MDRD) Non-Af 89, BUN/Creatinine Ratio 12.0, Glucose 128 H, Calcium 7.9 L, Total Bilirubin 0.80 Rhythm: EKG: ECHO: Pending Stress Test: Cardiac Cath: PCI: CT Surgery: Holter monitor: EPS: PPM: CXR: Chest CT Scan: Medical Necessity - Tobacco Use Smoking Status: Former smoker Assessment/Plan 1. Coronary artery disease: The patient presented with new onset chest pain yesterday with dynamic anterior ST segment elevation and peak T waves requiring emergent left heart catheterization. He was found to have a subtotal proximal mid LAD stenosis as well as a mid left circumflex stenosis. The patient underwent emergent angioplasty and drug-eluting stenting receiving a 2.5X 38 Promus Synergy stent to the mid LAD followed by a 2.5X 32 mm Promus Synergy stent to the proximal LAD postdilated with a 3.0 noncompliant balloon with an excellent result. Patient's peak troponin is 2.5 and his telemetry has been negative. His EKG is completely resolved. We will obtain a 2D echo with Doppler to document his baseline LV function at this time. He will remain on baby aspirin, Brilinta, beta blockers and ELIO inhibitor. We will discontinue his Integrilin this morning, and attempt to get his sheath out once his ACT is less than 1/72. His left circumflex will be electively intervened on in 2 to 3 weeks time is may be problematic for him to undergo a stress test given his recent myocardial infarction. His left circumflex stenosis appears to be greater than 75%. Attempts were not made to intervene on this as it did not appear to be the culprit artery, and to ensure the patient was able to tolerate dual antiplatelet therapy going forward. 2. Hyperlipidemia: Patient be treated with high-dose Lipitor therapy and we will repeat his lipid profile in 6 weeks time. 3. Patient remained in the ICU 1 more day, and may be perhaps discharge tomorrow morning assuming his groin is okay. 4. Thank you very much for the opportunity to participate in the cardiac care of your patient. Code Visit Inpatient E&M: 82993 Subs Hosp L2
--- NOTE | 2019-10-24 10:34 | CASEMGMT ---
RN CM Assessment Introduced role of RN CM to patient and patient Lauren at bedside.? Patient is alert, oriented and able?to participate in RN CM Assessment. ?Care providers, pharmacy, and demographics verified. Presentation: CP Admit Dx: STEMI Re-Admit: No Barriers/Issues: None PCP: Presley Candelario Specialists: None Preferred Pharmacy: [facility] Insurance: [facility] Rx Benefit: Yes? ?LNOK: Lauren Cheryl LW/HPOA: None, denies offered information or services this admission. Made aware can complete as an outpatient with dept. Living Arrangements:? Lives with in a 2SH, Bedroom on 1st fl, 15 steps to enter from basement to 1st fl. ADL?s: Independent with ambulation and ADLs Transportation: Patient drives, denies any issues with transportation. DME: None HHC: None SNF: None Goal: Home and does not think will have any needs. Denies any issues, questions, concerns with DC planning at this time. Aware CM remains ,available for any emerging needs. DC PLAN: Home with no anticipated needs identified at this time. Maria Teresaillinjarvis Coup[employer] card given to patient/ at bedside. Brianna Walter RNCM
[2019-10-24] MEDS: Aspirin E.C. 81 MG Tablet PO (11:34)
[2019-10-24] MEDS: Carvedilol 3.125 MG TABLET PO ×2 (11:34→22:07)
[2019-10-24] MEDS: Lisinopril 5 MG Tablet PO (11:35)
[2019-10-24] MEDS: TICAGRELOR 90 MG TABLET PO ×2 (11:35→21:29)
[2019-10-24 11:40] LABS: ACT Activated Clotting Time 120 sec (74-137)
--- NOTE | 2019-10-24 13:04 | CHAPLAIN ---
Type of Pastoral Visit ___ Initial Visit _x__ Follow-up Visit ___ On-call Visit ___ General Patient Visit ___ Spiritual Assessment ___ Family Conference ___ Bereavement ___ Rapid Response ___ Code Blue ___ Other (describe below) Pastoral Care Referral From ___ Patient _x__ Family ___ Nurse ___ Physician ___ Returned Goods Repairer ___ Gardening Supervisor ___ Other (describe below) Sacrament/Intervention _x__ Active listening ___ Anointing ___ Druze ___ Bereavement ___ Communion ___ Breanne exploration ___ ___ Life review _x__ Prayer ___ Reconciliation ___ Sacrament of Sick _x__ Supportive presence ___ Wedding ___ Other (describe below) Pastoral Comments
[2019-10-24 14:11] LABS: ACT Activated Clotting Time 158 sec (74-137)
[2019-10-24 14:11] LABS: ACT Activated Clotting Time 230 sec (74-137)
--- NOTE | 2019-10-24 16:53 | EKG12_ITS ---
Test Reason : POST PCI Blood Pressure : / mmHG Vent. Rate : 084 BPM Atrial Rate : 084 BPM P-R Int : 164 ms QRS Dur : 084 ms QT Int : 358 ms P-R-T Axes : 061 030 059 degrees QTc Int : 423 ms Sinus rhythm with Fusion complexes Inferior infarct , age undetermined , cannot be excluded Abnormal ECG Confirmed by DILLAN CHANDLER, JALEN ([id number]), scientific editor AR NAVARRO ([id number]) on 10/25/2019 1:32:29 PM Referred By: Minh Ballesteros Confirmed By:JALEN GRIMALDO MD
--- NOTE | 2019-10-24 18:04 | PCM.PROGNOTE ---
Patient Problems: Active and Suspected Problems (Last Updated 10/24/19 @ 08:51 by Tia Baker) STEMI (ST elevation myocardial infarction) (Acute) Subjective: Patient was seen and examined today, he has no complaints of any chest pain or shortness of breath. Briefly with cardiology about his care today. Patient underwent drug-eluting stent placement to the mid LAD and proximal LAD. There is also stenosis in the circumflex artery that was not intervened on at the copyholder discretion. It appears that this will be intervened on and 2 to 3 weeks. - Physical Exam Vitals/I&O's: Vital Signs Temp Pulse Resp BP Pulse Ox 98.4 F 83 15 122/69 H 95 10/24/19 12:00 10/24/19 17:00 10/24/19 17:00 10/24/19 17:00 10/24/19 17:00 Oxygen Flow Rate (L/min) 2 Oxygen Delivery Method Room Air Weight: 91.172 kg Body Mass Index (BMI) 30.2 Intake and Output for Last 24 Hours 10/22/19 10/23/19 10/24/19 23:59 23:59 23:59 Intake Total 1894.39 / 1954.39 3195.30 / 3195.30 Output Total 200 / 800 1600 / 1600 Balance 1694.39 / 1154.39 1595.30 / 1595.30 General: Alert, Oriented x3, Cooperative, No apparent distress, Well developed, Well nourished HEENT: Atraumatic, PERRLA, EOMI, Normocephalic Oral: Moist Mucosa Neck: Supple, No JVD, Negative Carotid Bruits, Trachea Midline, Thyroid Normal Size and Texture Lungs: Clear to auscultation, Normal air movement, No rhonchi, No wheeze, No rales Cardiovascular: Regular rate, Regular Rhythm, Normal S1, Normal S2, No murmurs, PMI Normal, No rub noted, No Gallop Abdomen: Bowel Sounds Present, Soft, Non Tender, Non-Distended, No hernias noted Extremities: No clubbing, No cyanosis, No edema, Capillary Refill Less than 3 Seconds Skin: No rashes, No breakdown Musculoskeletal: No Tenderness to Palpation of Joints or Extremities Neurological: Cranial nerves II-XII grossly intact, Neuro grossly intact, Sensory exam intact to light touch and pain, Coordination normal Psych/Mental Status: Normal Affect, Appropriate, Alert and oriented to time, place, person, mood and affect Laboratory Results 10/23/19 16:01: Activated Clotting Time 158 H 10/23/19 16:32: Activated Clotting Time 230 H 10/23/19 18:30: Troponin I 0.799 H* 10/23/19 21:25: Troponin I 2.350 H* 10/23/19 23:50: POC Glucose 136 H 10/24/19 04:10: WBC 13.9 H, RBC 5.10, Hgb 14.8, Hct 43.8, MCV 85.9, MCH 29.0, MCHC 33.8, RDW Std Deviation 41.6, RDW Coeff of Brice 13.3, Plt Count 265, MPV 10.7 10/24/19 04:10: Sodium 138, Potassium 3.8, Chloride 108 H, Carbon Dioxide 25.0, Anion Gap 5, BUN 11, Creatinine 0.92, Estim Creat Clear Calc 85.39, Est GFR (MDRD) Af Amer 108, Est GFR (MDRD) Non-Af 89, BUN/Creatinine Ratio 12.0, Glucose 128 H, Calcium 7.9 L, Total Bilirubin 0.80, AST 45 H, ALT 26, Alkaline Phosphatase 77, Total Protein 7.0, Albumin 3.3, Globulin 3.7, Albumin/Globulin Ratio 0.9 10/24/19 07:03: POC Glucose 133 H 10/24/19 09:09: Activated Clotting Time 120 Current Medications Acetaminophen (Tylenol) 650 mg PO Q6H PRN PRN PRN Reason: Pain Score 1-3/10 Aspirin (Ecotrin) 81 mg PO DAILY@0800 [facility] Last Admin: 10/24/19 11:34 Dose: 81 mg Documented by: Atorvastatin Calcium (Lipitor) 80 mg PO QHS [facility] Last Admin: 10/23/19 21:21 Dose: 80 mg Documented by: Atropine Sulfate () 0.5 mg IV UD PRN PRN Reason: HR <50 bpm Carvedilol (Coreg) 3.125 mg PO BID [facility] Last Admin: 10/24/19 11:34 Dose: 3.125 mg Documented by: Diazepam (Valium) 5 mg PO Q6H PRN PRN PRN Reason: BACK SPASMS/ANXIETY Heparin Sodium (Beef Lung) (Heparin 500 Unit/5 Ml (100/Ml)) 500 unit IV UD PRN PRN Reason: HEPARIN FLUSH Sodium Chloride () 1,000 mls @ 1 mls/hr IV .Q48H PRN PRN Reason: Saline Flush Labetalol HCl (Trandate) 5 mg IV X1 PRN PRN Reason: SBP > 160 when pulling sheath Lisinopril (Zestril) 5 mg PO DAILY [facility] Last Admin: 10/24/19 11:35 Dose: 5 mg Documented by: Metoclopramide HCl (Reglan) 5 mg IV Q6H PRN PRN PRN Reason: NAUSEA/VOMITING Morphine Sulfate () 2 mg IV Q4H PRN PRN PRN Reason: Mild back pain () Last Admin: 10/24/19 09:37 Dose: 2 mg Documented by: Nitroglycerin (Nitrostat) 0.4 mg SUBLINGUAL Q5M PRN PRN Reason: CARDIAC/CHEST PAIN Sodium Chloride () 500 ml IV BOLUS PRN PRN Reason: VASO-VAGAL PROTOCOL Sodium Chloride () 10 - 40 ml IV UD PRN PRN Reason: SALINE FLUSH Ticagrelor (Brilinta) 90 mg PO BID [facility] Last Admin: 10/24/19 11:35 Dose: 90 mg Documented by: Medical Necessity - Tobacco Use Smoking Status: Former smoker Assessment/Plan All Active Problems (Last Updated 10/24/19 @ 08:51 by Tia Baker) STEMI (ST elevation myocardial infarction) (Acute) #1 STEMI-postop day #1 drug-eluting stent placement to the LAD x2 - continue present treatment #2 hyperlipidemia #3 occlusive coronary disease in the left circumflex artery-this will be addressed in 2 to 3 weeks. Code Visit Inpatient E&M: 84054 Subs Hosp L2
[2019-10-24] MEDS: Atorvastatin Calcium 80 MG Tablet PO (21:29)
[2019-10-25] VITALS (13 sets, daily range): BP systolic 94–117; BP diastolic 55–75; PULSE 66–77; RESP 16–22; TEMP 36.6–36.8; O2SAT 93–96
[2019-10-25 04:41] LABS: Hematocrit 43.9 % (40-54); Hemoglobin 14.8 g/dL (13.0-16.5); Mean Corp Hgb Conc 33.7 g/dL (32-36); Mean Corpuscular Hgb 29.2 pg (27.0-32.0); Mean Corpuscular Volume 86.6 fL (80-94); Mean Platelet Vol. 10.9 fl (6.2-12.0); Platelet Count 254 K/mm3 (150-450); RBC Distribution Width CV 13.7 % (11.6-14.6); RBC Distribution Width SD 42.8 fl (35.1-43.9); Red Blood Count 5.07 M/mm3 (4.6-6.2); White Blood Count 12.1 K/mm3 (4.4-11.0)
--- NOTE | 2019-10-25 08:44 | PCM.PN.CARD ---
Subjectve: Patient doing very well this morning, no 24-hour events. Telemetry negative. Right groin is clean/dry/intact, without evidence of thrills or bruits or hematoma. Hemoglobin and creatinine within nominal limits. EKG shows normal sinus rhythm with resolved anterior T wave changes. Objective: Vital Signs Temp Pulse Resp BP Pulse Ox 98.1 F 71 17 107/67 94 10/25/19 04:00 10/25/19 08:00 10/25/19 07:00 10/25/19 07:00 10/25/19 07:00 Oxygen Flow Rate (L/min) 2 Oxygen Delivery Method Room Air Weight: 194 lb 14.218 oz Body Mass Index (BMI) 30.2 Intake and Output for Last 24 Hours 10/23/19 10/24/19 10/25/19 23:59 23:59 23:59 Intake Total 1894.39 / 1954.39 3695.30 / 3695.30 100 / 100 Output Total 200 / 800 2300 / 2300 300 / 300 Balance 1694.39 / 1154.39 1395.30 / 1395.30 -200 / -200 General: Awake, Alert, Oriented x 3 HEENT: PERRL, EOMI, Sclera Non Icteric Neck: Supple, Good ROM, No Lymph Node Enlargement Lungs: Clear to auscultation Cardiovascular: Regular Rhythm, Normal S1, Normal S2, No Murmurs, No Rubs, No Gallops Vascular: No Carotid Bruits, Normal Femoral Pulses, Normal Radial Pulses, Normal Dorsalis Pedal Pulse, Normal Posterior Tibial Pulses Abdomen: Bowel Sounds Present, Soft, Non Tender, No HSM, No Organomegaly Extremities: No Cyanosis, No Clubbing, No edema Neurological: No Focal Motor or Sensory Deficit 10/25/19 04:05: WBC 12.1 H, RBC 5.07, Hgb 14.8, Hct 43.9, MCV 86.6, MCH 29.2, MCHC 33.7, Plt Count 254, MPV 10.9 Rhythm: EKG: ECHO: Stress Test: Cardiac Cath: PCI: CT Surgery: Holter monitor: EPS: PPM: CXR: Chest CT Scan: Medical Necessity - Tobacco Use Smoking Status: Former smoker Assessment/Plan 1. Coronary artery disease: The patient presented with new onset chest pain yesterday with dynamic anterior ST segment elevation and peak T waves requiring emergent left heart catheterization. He was found to have a subtotal proximal mid LAD stenosis as well as a mid left circumflex stenosis. The patient underwent emergent angioplasty and drug-eluting stenting receiving a 2.5X 38 Promus Synergy stent to the mid LAD followed by a 2.5X 32 mm Promus Synergy stent to the proximal LAD postdilated with a 3.0 noncompliant balloon with an excellent result. Patient's peak troponin is 2.5 and his telemetry has been negative. His EKG is completely resolved. We will obtain a 2D echo with Doppler to document his baseline LV function at this time. He will remain on baby aspirin, Brilinta, beta blockers and ELIO inhibitor. Right groin is clean/dry/intact, without evidence of thrills, bruits or hematoma. 2+ DP and PT pulses bilaterally. His left circumflex will be electively intervened on in 2 to 3 weeks time is may be problematic for him to undergo a stress test given his recent myocardial infarction. His left circumflex stenosis appears to be greater than 75%. 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 Attempts were not made to intervene on this as it did not appear to be the culprit artery, and to ensure the patient was able to tolerate dual antiplatelet therapy going forward. 2. Hyperlipidemia: Patient be treated with high-dose Lipitor therapy and we will repeat his lipid profile in 6 weeks time. 3. Patient may be discharged home and follow-up with Dr. Bergeron going forward. 4. Thank you very much for the opportunity to participate in the cardiac care of your patient. Code Visit Inpatient E&M: 50994 Subs Hosp L2
[2019-10-25] MEDS: Aspirin E.C. 81 MG Tablet PO (09:16)
[2019-10-25] MEDS: Lisinopril 5 MG Tablet PO (09:16)
[2019-10-25] MEDS: Carvedilol 3.125 MG TABLET PO (09:16)
[2019-10-25] MEDS: TICAGRELOR 90 MG TABLET PO (09:16)
--- NOTE | 2019-10-25 09:18 | DCINST_ITS ---
- Discharge Diagnoses Current Active Problems: Current Active and Chronic Problems (Last Updated 10/24/19 @ 08:51 by Tia Baker) Arteriosclerosis of coronary artery in patient with history of myocardial infarction (Chronic 10/23/19) Stented coronary artery (Chronic 10/23/19) Successful Emergent Heparin/Integrilin assisted PTCA/MALIK mid LAD with a 2.5 x 38 Promus Synergy Successful Emergent Heparin/Integrilin assisted PTCA/MALIK proximal LAD with a 2.5 x 32 Promus Synergy 10/23/19 @[facility] per [facility]N STEMI (ST elevation myocardial infarction) (Acute) Hypogonadism in male (Chronic) You will use the following diet at home:: No restrictions Your food should be the consistency of: Regular Your liquids should be the consistency of: Regular/Thin Discharge Activity: Return to Normal Activity Weight Bearing Status: Full weight bearing Additional Instructions: DO NOT RETURN TO WORK, GET CLEARANCE TO RETURN FROM [facility] Allergies/Adverse Reactions: Allergies No Known Allergies Allergy (Verified 10/23/19 15:40) Medications to take at Discharge Testosterone [Androgel] 5 gm TD DAILY 09/12/17 Aspirin E.C. [Ecotrin] 81 mg PO DAILY@0800 tab 10/24/19 Atorvastatin Calcium [Lipitor] 80 mg PO QHS #30 tab 10/24/19 Carvedilol [Coreg (Beta Judson)] 3.125 mg PO BID #60 tab 10/24/19 Lisinopril [Zestril] 5 mg PO DAILY #30 tab 10/24/19 Ticagrelor [Brilinta] 90 mg PO BID #60 tab 10/24/19 The following prescriptions were given: Ticagrelor [Brilinta] 90 mg PO BID #60 tab Prescription Printed Carvedilol [Coreg (Beta Judson)] 3.125 mg PO BID #60 tab Prescription Printed Atorvastatin Calcium [Lipitor] 80 mg PO QHS #30 tab Prescription Printed Lisinopril [Zestril] 5 mg PO DAILY #30 tab Prescription Printed Orders to be completed after discharge: Phase II, Outpatient Cardiac Rehab Location: None Selected Primary Care Physician: Jerson Candelario MD [Primary Care Provider] - Test Results: Test results from this visit will be discussed in further detail at your follow- up appointment, if applicable. Please Follow Up With: Cornell Bergeron MD When: as scheduled
--- NOTE | 2019-10-25 09:22 | CASEMGMT ---
RN CM Note: Intro role of CM to patient in room. Discussed Brilinta medication for dc and savings card for reduction of copay. Savings card sent to [facility] to process. No dc needs identified. Wendy CADEN RN ACM
--- NOTE | 2019-10-25 10:00 | EKG12_ITS ---
Test Reason : AM Blood Pressure : / mmHG Vent. Rate : 069 BPM Atrial Rate : 069 BPM P-R Int : 162 ms QRS Dur : 088 ms QT Int : 368 ms P-R-T Axes : 054 -16 079 degrees QTc Int : 394 ms Normal sinus rhythm Inferior infarct , age undetermined Abnormal ECG When compared with ECG of 24-OCT-2019 05:39, MANUAL COMPARISON REQUIRED, DATA IS UNCONFIRMED Confirmed by MADDI CHANDLER, CANDY ([id number]), online content editor CHASE SARKAR ([id number]) on 10/30/2019 1:03:46 PM Referred By: Minh Ballesteros Confirmed By:BETTY LINDA MD
--- NOTE | 2019-10-27 17:02 | DS.PCM_ITS ---
Discharge Date and Diagnosis Date of Admission: 10/23/19 Date of Discharge: 10/25/19 - Primary Discharge Diagnosis 1 STEMI #2 hyperlipidemia #3 occlusive coronary disease in the left circumflex artery #4 hyperlipidemia - Secondary Discharge Diagnosis Chronic Problems (Last Updated 10/24/19 @ 08:51 by Tia Baker) Arteriosclerosis of coronary artery in patient with history of myocardial infarction (Chronic 10/23/19) Stented coronary artery (Chronic 10/23/19) Successful Emergent Heparin/Integrilin assisted PTCA/MALIK mid LAD with a 2.5 x 38 Promus Synergy Successful Emergent Heparin/Integrilin assisted PTCA/MALIK proximal LAD with a 2.5 x 32 Promus Synergy 10/23/19 @[facility] per [facility]N Hypogonadism in male (Chronic) Hospital Course and Treatment Operations: None Procedures: 2-D Echocardiogram, Cardiac catheterization - With placement of drug-eluting stents Summary of Care Provided: The patient is a 59 year old M was seen in the emergency room at [facility] with chief complaint of chest pain, work-up in the emergency room included an EKG which showed an anterior inferior ST elevation MA, patient was given Brilinta and aspirin and 4000 units of heparin IV, cardiology was contacted and he was transferred to the Finishing Supervisor for cardiac catheterization. Cardiac catheterization revealed occlusive coronary disease in the circumflex artery and occlusive coronary disease in the LAD, PTCA was performed in the LAD and there was insertion of a MALIK in the mid LAD and proximal LAD. Following the procedure, patient went to the ICU and was monitored, his stay in the ICU was uneventful and there were no complications. On 10/25/2019, patient was seen and examined: On examination he appeared in good health and spirits. Vital signs as documented. Skin warm and dry and without overt rashes. Neck without JVD. Lungs clear. Heart exam notable for regular rhythm, normal sounds and absence of murmurs, rubs or gallops. Abdomen unremarka ble and without evidence of organomegaly, masses, or abdominal aortic enlargement. Extremities nonedematous. Neuro: Cranial nerves II through XII are grossly intact, no focal motor deficits were noted, sensation to light touch and pinprick intact. Psych: Patient is alert and oriented x3, he does not appear anxious or depressed On 10/25/2019, patient was seen and examined and felt to be in stable condition for discharge home. - Physical Exam Vitals/I&O's: Vital Signs Temp Pulse Resp BP Pulse Ox 97.9 F 77 19 H 116/71 95 10/25/19 08:00 10/25/19 10:00 10/25/19 10:00 10/25/19 10:00 10/25/19 10:00 Oxygen Flow Rate (L/min) 2 Oxygen Delivery Method Room Air Weight: 88.4 kg Body Mass Index (BMI) 30.2 Intake and Output for Last 24 Hours 10/25/19 10/26/19 10/27/19 23:59 23:59 23:59 Intake Total 100 / 100 Output Total 300 / 300 Balance -200 / -200 Discharge Activity: Return to Normal Activity Weight Bearing Status: Full weight bearing Home Medications: Medications to take at Discharge Testosterone [Androgel] 5 gm TD DAILY 09/12/17 Aspirin E.C. [Ecotrin] 81 mg PO DAILY@0800 tab 10/24/19 Atorvastatin Calcium [Lipitor] 80 mg PO QHS #30 tab 10/24/19 Carvedilol [Coreg (Beta Judson)] 3.125 mg PO BID #60 tab 10/24/19 Lisinopril [Zestril] 5 mg PO DAILY #30 tab 10/24/19 Ticagrelor [Brilinta] 90 mg PO BID #60 tab 10/24/19 Following Prescrptions Were Given to Patient: Ticagrelor [Brilinta] 90 mg PO BID #60 tab Prescription Printed Carvedilol [Coreg (Beta Judson)] 3.125 mg PO BID #60 tab Prescription Printed Atorvastatin Calcium [Lipitor] 80 mg PO QHS #30 tab Prescription Printed Lisinopril [Zestril] 5 mg PO DAILY #30 tab Prescription Printed Other Amb Orders: Phase II, Outpatient Cardiac Rehab Location: None Selected Primary Care Physician: Jerson Candelario MD [Primary Care Provider] - Please Follow Up With: Cornell Bergeron MD When: as scheduled Disposition: Home Minutes spent on discharge:: 33 Patient Condition:: Stable Medical Necessity - Tobacco Use Smoking Status: Former smoker Meaningful Use Info Meaningful Use Diagnoses (Choose all that apply): AMI - AMI Aspirin given w/in 24hrs of arrival?: Yes ASA at discharge?: Yes Statins at discharge?: Yes Stephan/ARB at discharge?: Yes Beta Judson at discharge?: Yes Done w/ Acute MA measure.: Yes Documented LVEF (%): 65 Code Visit Inpatient E&M: 36611 Disch Hosp
== END 2019-10-25 11:00 | disposition home or self-care (01) | DRG 247 ==
LOC: ED 15:46 → ICU 15:58
PROVIDERS: Internal Medicine Cardiovascular Disease; Admitting Provider Internal Medicine; Emergency Provider Emergency Medicine; Family Provider Family Medicine; PCP Family Medicine; Referring Provider Internal Medicine; Visit Provider Internal Medicine
DX: I21.09 ST elevation (STEMI) myocardial infarction involving other coronary artery of anterior wall (principal); E78.5 Hyperlipidemia, unspecified; I25.10 Atherosclerotic heart disease of native coronary artery without angina pectoris; Z87.891 Personal history of nicotine dependence; E29.1 Testicular hypofunction
CPT/HCPCS: 71045; 80048; 80053; 80061; 82962; 84484; 85025; 85027; 85347; 85610; 85730; 92941; 93005; 93306; 93458; 99152; 99153; 99285; J7030; Q9957; Q9967; A4216; C1725; C1769; C1874; C1887; C9606; J1327

== ENCOUNTER 2019-11-13 10:10 | Day surgery (SDC) | payer OTHER, SELFPAY ==
[2019-10-23 17:15] VITALS: BMI 30.2
[2019-10-24 07:57] VITALS: BMI 29.7
[2019-11-13] VITALS (17 sets, daily range): BP systolic 93–148; BP diastolic 50–80; PULSE 54–74; RESP 15–21; TEMP 36.4–36.7; O2SAT 95–98; BMI 29.0
--- NOTE | 2019-11-13 11:22 | PCM.HP.BLA ---
Problem List (1) Arteriosclerosis of coronary artery in patient with history of myocardial infarction Status: Chronic (2) STEMI (ST elevation myocardial infarction) Status: Acute History and Physical Date of Admission: 11/13/19 This is a 59-year-old gentleman that presents here today for a staged PCI. He recently established with us during a hospital stay on October 25 where he presented to the emergency room with an acute myocardial infarction. He did have ST elevation noted on his EKG. His peak troponin was 2.35. He underwent stenting of his LAD. It was noted that he did have disease of his circumflex. A planned staged procedure was done at his discharge. Patient has not had any further chest discomfort or shortness of breath since his myocardial infarction. He does admit to not being very active and kind staying on a low-jimenez basis. He does not have any orthopnea. He does not any palpitations. He does not have any lightheadedness, dizziness, syncopal episodes or lower extremity edema. He does have some bleeding concerns as he has had a few bloody noses since starting the Brilinta. However they were able to get this under control with humidification in the house. Intake Vital Signs 11/13/19 BMI 30.2 Intake Visit Reasons: Amb Documentation Allergies No Known Allergies Allergy (Verified 11/10/19 08:07) [facility] Medical History Arteriosclerosis of coronary artery in patient with history of myocardial infarction (Chronic 10/23/19) STEMI (ST elevation myocardial infarction) (Acute) Surgical History Stented coronary artery (Chronic 10/23/19) Social History Smoking Status: Former smoker ROS Const Const: Negative for fatigue, weakness, fever(s) or headache(s) Eyes Eyes: Negative for blind spots, loss of peripheral vision or transient loss of vision ENT ENT: Negative for headache(s), dizziness, tinnitus or Nosebleed/epistaxis Cardio Chest Pain: No Palpitations: No Edema: None Muscle aches with walking: None Resp Respiratory: Negative for SOB with activity, SOB at rest, SOB orthopnea\SOB lying down or Cough GI GI: Negative nausea, vomiting, heartburn or vomiting blood/hematemesis : Negative for hematuria Musc Musc: Negative for muscle aches/ myalgia Neuro Neuro: Negative for dizziness, lightheadedness, near syncope, syncope, orthostatic symptoms, headache(s) or weakness Daryl Hematologic/Lymphatic: Negative for easy bleeding Endo Endo: Negative for fatigue Cardiology Exam Const Appearance: cooperative, no acute distress and well developed Orientation: alert, awake and oriented x3 Head Head: normocephalic and atraumatic Mouth: moist mucous membranes Eyes General: appearance normal, both eyes and all related structures Conjunctivae: conjunctivae normal Pupils: PERRL EOM: EOM intact bilaterally Neck Neck: normal visual inspection, no lymphadenopathy and no JVD Carotids: Negative bruit Neck Mass: Negative Neck mass Chest Chest inspection: normal inspection of the chest and symmetric chest movement Auscultation: Bilateral: Clear to Auscultation Cardio Palpation: normal PMI Rate: regular rate Rhythm: regular rhythm Heart sounds: S1 normal and S2 normal; negative rub, gallop or murmur GI GI: normal to inspection, soft, no hepatosplenomegaly and bowel sounds present; negative tender Neuro General: alert, awake, oriented x3, CN's II-XI intact bilaterally and moves all extremities Extremities Pulses: Normal: Right Posterior Tibial Pulse, Left Posterior Tibial Pulse, Right Radial Pulse, Left Radial Pulse Lower Extremity Edema: None: Bilateral Psych Psychological: normal affect Assessment & Plan Problems 1. Arteriosclerosis of coronary artery in patient with history of myocardial infarction I25.10; I25.2 Plan Patient is here today for a staged procedure. He will undergo a heart catheterization with stenting to his circumflex. He will follow-up accordingly in the office afterwards. He will be referred to cardiac rehab after this procedure.
[2019-11-13 12:36] LABS: ACT Activated Clotting Time 131 sec (74-137)
--- NOTE | 2019-11-13 12:37 | CL.I_ITS ---
Patient Name: SABAS HENSON Study Date: 11/13/2019 Performing: Cornell Bergeron MD Ht: 69 inches 175 cm : 1960 Wt: 194.3 lbs 88 kg Age: 59 Gender: male BSA: 2.04 PROCEDURE(S) PERFORMED [id number] W OR WO PTCA, SINGLE CORONARY ARTERY [id number], EACH ADD'L CORONARY ART, SAME MAJOR CLINICAL PROFILE AND CO-MORBIDITIES Indications: Stable Known CAD Heart Failure: None Stress/Imaging Stress/Image Study Performed: No Angina Classification Anginal Classification w/in 2 Weeks: No symptoms CAD Presentations: No Sxs, no angina. Other: Pt had recent STEMI and unable to adequately eval LC X with stress test due to 85% lesion, and unwise to FFR given significant difficulty crossing lesion as a result of multi-focal CAD. Comorbidities/Risk Factors: Hypertension Dyslipidemia Prior [place] Prior PCI CONCLUSIONS Successful PTCA/MALIK mid LCX with a 2.5 x 28 Promus Synergy stent; 85%-->0%, no dissection. Successful PCI with PTCA to the ostial OM#1 with a 2.0 x 12 Emerge balloon; 85%-->30%, no dissection. RECOMMENDATIONS Highly recommend quitting all tobacco products Follow up with primary harvester operator Risk factor modification ASA Indefinitley Plavix for at least 12 months Routine post interventional care Refer for Outpatient Cardiac Rehab Manual sheath removal per protocol Follow up with Dr. Bergeron Successful Mynx Control closure of RFA. DESCRIPTION OF PROCEDURE The patient arrived to the procedure lab. The risks and benefits of the procedure as well as a full d escription of our services here and current unavailability of surgical backup were fully explained to the patient and/or their significant other prior to the catheterization. The Timeout was completed, verifying the correct patient and procedure. The patient's procedural site was prepped and draped in the usual fashion. Local anesthetic was given subcutaneously to right groin region with Lidocaine 2%. Using a modified Seldinger technique, . EBU 3.75 Guide catheter was inserted and engaged into the LCA. BMW Guide wire was advanced to the Circumflex. Emerge 2.00x12 Balloon catheter was inserted. PTCA balloon inflated at 8 atms for 10 sec s. PTCA balloon inflated at 8 atms for 8 secs. PTCA balloon inflated at 8 atms for 9 secs. Angiogram performed post balloon dilatation. BMW Guide wire was inserted as a cecy wire OM #1 Emerge 2.00x12 B alloon catheter was inserted. PTCA balloon inflated at 6 atms for 31 secs. Angiogram performed post b alloon dilatation. Synergy 2.50x28 Drug Eluting stent was inserted. Angiogram performed post stent de ployment. Emerge 2.00x12 Balloon catheter was inserted. PTCA balloon inflated at 6 atms for 24 secs. Angiogram performed post balloon dilatation. Contrast was injected through the sheath and the Right I liac and Femoral artery were assessed for possible closure device. The arterial sheath was pulled and a Mynx closure device was deployed for hemostasis INTERVENTION INFORMATION LESION SITE: Circumflex (Mid) Lesion Complexity: High/C, lesion at bifurcation: Yes, thrombus present: No, lesion length: 28 mm, cu lprit lesion: Yes Pre Stenosis: 85 % Pre intervention RITA flow: 3 PROCEDURE: Drug Eluting Stent with pre dilatation. Post Stenosis: 0 % Post intervention RITA flow: 3 Lesion Devices: Ortiz .014 BMW Sandwich Straight 190cm Penneotronic 6 Fr EBU3.75 100cm Guide Catheter Rolando Sci EMERGE MR 2.00x12 BALLOON Rolando Sci Synergy MR MALIK 2.50x28 LESION SITE: 1st OM (Ostial) Lesion Complexity: Non-High/Non-C, lesion at bifurcation: Yes, thrombus present: No, lesion length: 8 mm, culprit lesion: No Pre Stenosis: 85 % Pre intervention RITA flow: 3 PROCEDURE: Balloon Angioplasty Post Stenosis: 30 % Post intervention RITA flow: 3 Lesion Devices: Rolando Sci EMERGE MR 2.00x12 BALLOON Ortiz .014 BMW Sandwich Straight 190cm COMPLICATIONS No Complications PROCEDURE MEDICATIONS Oxygen: 2 L/min via nasal cannula Heparin 6000 unit(s) IV 11/13/2019 11:42:58 Nitro 200 mcg IC 11/13/2019 11:43:19 Nitro 200 mcg IC 11/13/2019 11:43:19 Nitro 200 mcg IC 11/13/2019 11:58:36 IV Bolus: .9 NaCl 500 ml total 11/13/2019 11:43:36 SUMMARY OF HEMODYNAMIC DATA Time AIR REST ECG 10:37:35 AO 146/71 (104) SA 11:42:37 Signed By Cornell Bergeron MD On 11/13/2019 12:36:23 Cornell Bergeron MD
[2019-11-13] MEDS: 0.9% Normal Saline 1,000 ML 150 ML IV (12:50)
--- NOTE | 2019-11-13 12:50 | EKG12_ITS ---
Test Reason : S/P PCI Blood Pressure : / mmHG Vent. Rate : 062 BPM Atrial Rate : 062 BPM P-R Int : 174 ms QRS Dur : 094 ms QT Int : 418 ms P-R-T Axes : 053 -34 051 degrees QTc Int : 424 ms Normal sinus rhythm Left axis deviation Inferior infarct , age undetermined, cannot be excluded Abnormal ECG Confirmed by DILLAN CHANDLER, JALEN ([id number]), web content editor CHASE SARKAR ([id number]) on 11/15/2019 12:03:16 PM Referred By: Cornell Bergeron Confirmed By:JALEN GRIMALDO MD
--- NOTE | 2019-11-13 13:00 | CRPHASE1 ---
Patient Communication Former Patient:: Phase I - Seen by CR staff on pre PCI intervention 10/23/2019 PHII Cardiac Rehab Discussed with Patient:: Yes Guide to Cardiac Rehab Given to Patient:: Yes Cardiac Rehab Facility Choice List Given to Patient:: Yes Choice Program [facility] PHII:: Communication Given to CR, Refer to [facility] Automatic Transmission Mechanic:: Cornell Bergeron Refer Phase II Cardiac Rehab:: Yes Sessions:: 36 sessions - 3 days/wk, 12 weeks Cardiac Rehabilitation Info Cardiac Rehabilitation Program Information: Cardiac Rehabilitation is important for patients like you who are recovering from a heart problem. Cardiac rehabilitation programs are recognized as integral to the continued care of the patient with coronary heart disease. The cardiac rehabilitation program is designed to optimize a patient's physical, psychological, and social functioning. Health career development associate work in cardiac rehabilitation programs and assist you with getting the treatments you need to get stronger and healthier - like exercise, healthy eating habits, and medications. Cardiac rehabilitation has been show to help people with heart problems live longer and have better life enjoyment than people who do not go to cardiac rehabilitation. Please contact the Cardiac Rehabilitation Program at [facility] at in two weeks if you have not heard from them.
--- NOTE | 2019-11-13 13:02 | CRPH1.INSTRU ---
General Education CAD and cardiac anatomy and function:: Patient communicates acknowledgment Explanation of diagnoses and procedures:: Patient communicates acknowledgment Sign/Symptoms of [place]:: Patient communicates acknowledgment Antiplatelet therapy: Patient communicates acknowledgment Proper use of NTG-SL: Patient communicates acknowledgment Emergency procedures and activation of EMS: Patient communicates acknowledgment Compliance of all prescribed medications: Patient communicates acknowledgment - Patient previously seen on 10/23/2019 following previous PCI w/intervention stent placement. A Guide to Your Cardiac Rehab was provided to the patient at that time.
[2019-11-13] MEDS: Atorvastatin Calcium 80 MG Tablet PO (21:09)
[2019-11-13] MEDS: TICAGRELOR 90 MG TABLET PO (21:09)
[2019-11-13] MEDS: Carvedilol 3.125 MG TABLET PO (21:09)
[2019-11-14] VITALS (8 sets, daily range): BP systolic 86–128; BP diastolic 53–75; PULSE 53–73; RESP 13–19; TEMP 36.8–37; O2SAT 95–97
[2019-11-14 05:54] LABS: Hematocrit 45.2 % (40-54); Hemoglobin 15.1 g/dL (13.0-16.5); Mean Corp Hgb Conc 33.4 g/dL (32-36); Mean Corpuscular Hgb 28.5 pg (27.0-32.0); Mean Corpuscular Volume 85.4 fL (80-94); Mean Platelet Vol. 10.5 fl (6.2-12.0); Platelet Count 269 K/mm3 (150-450); RBC Distribution Width CV 12.7 % (11.6-14.6); RBC Distribution Width SD 39.6 fl (35.1-43.9); Red Blood Count 5.29 M/mm3 (4.6-6.2); White Blood Count 11.1 K/mm3 (4.4-11.0)
[2019-11-14 06:11] LABS: ALB/GLOB Ratio 0.8 RATIO (0.9-2.4); AST(SGOT) 18 U/L (15-37); Alanine Aminotransfer ALT/SGPT 41 U/L (16-61); Albumin, Serum 3.3 g/dL (3.2-5.0); Alkaline Phosphatase 107 U/L (45-117); Anion Gap 5 (5-15); BUN 14 mg/dL (7-18); BUN/Creat Ratio 13.9 RATIO (10-20); Calcium,Total 8.3 mg/dL (8.5-10.1); Chloride 106 mmol/L (98-107); Creatinine, Serum 1.01 mg/dL (0.70-1.30); EST Glomerular Filtration Rate 80 mL/min (>60); Est Glom Filt Rate - Afr Amer 97 mL/min (>60); Estimated Creatinine Clearance 77.78 ml/min; Glucose 108 mg/dL (74-106); Potassium 4.1 mmol/L (3.5-5.1); Protein, Total 7.3 g/dL (6.4-8.2); Sodium Level 137 mmol/L (136-145)
--- NOTE | 2019-11-14 08:23 | PCM.PN.CARD ---
Subjectve: Patient doing very well this morning, no 24-hour events. Telemetry negative. EKG shows sinus bradycardia, no acute changes. Hemoglobin and creatinine within nominal limits. Right groin is clean/dry/intact. No chest pain overnight. Objective: Vital Signs Temp Pulse Resp BP Pulse Ox 98.3 F 57 L 15 112/69 96 11/14/19 00:00 11/14/19 06:00 11/14/19 06:00 11/14/19 06:00 11/14/19 06:00 Oxygen Delivery Method Room Air Weight: 190 lb 0.615 oz Body Mass Index (BMI) 29.0 Intake and Output for Last 24 Hours 11/12/19 11/13/19 11/14/19 23:59 23:59 23:59 Intake Total 480 / 480 1000 / 1000 Balance 480 / 480 1000 / 1000 General: Awake, Alert, Oriented x 3 HEENT: PERRL, EOMI, Sclera Non Icteric Neck: Supple, Good ROM, No Lymph Node Enlargement Lungs: Clear to auscultation Cardiovascular: Regular Rhythm, Normal S1, Normal S2, No Murmurs, No Rubs, No Gallops Vascular: No Carotid Bruits, Normal Femoral Pulses, Normal Radial Pulses, Normal Dorsalis Pedal Pulse, Normal Posterior Tibial Pulses Abdomen: Bowel Sounds Present, Soft, Non Tender, No HSM, No Organomegaly Extremities: No Cyanosis, No Clubbing, No edema Neurological: No Focal Motor or Sensory Deficit 11/14/19 05:04: WBC 11.1 H, RBC 5.29, Hgb 15.1, Hct 45.2, MCV 85.4, MCH 28.5, MCHC 33.4, Plt Count 269, MPV 10.5 11/14/19 05:04: Sodium 137, Potassium 4.1, Chloride 106, Carbon Dioxide 26.0, Anion Gap 5, BUN 14, Creatinine 1.01, Est GFR (MDRD) Af Amer 97, Est GFR (MDRD) Non-Af 80, BUN/Creatinine Ratio 13.9, Glucose 108 H, Calcium 8.3 L, Total Bilirubin 0.90 Rhythm: EKG: ECHO: Stress Test: Cardiac Cath: PCI: CT Surgery: Holter monitor: EPS: PPM: CXR: Chest CT Scan: Assessment/Plan 1. Coronary artery disease: Patient status post elective angioplasty and drug-eluting stenting to his mid circumflex followed by balloon angioplasty only of the obtuse marginal #1 ostium. Patient is remained chest pain-free overnight, and his right groin is clean/dry/intact. He will continue on baby aspirin, Brilinta, and lisinopril. The patient would not be discharged on beta-kim due to his baseline sinus bradycardia. Patient will be enrolled in cardiac rehab in 1 week's time assuming his groin remains clean/dry/intact. 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 2. Hyperlipidemia: Continue Lipitor therapy. Repeat lipid profile in 3 weeks time. 3. Patient will be discharged home and follow-up with Dr. Bergeron going forward. Code Visit Inpatient E&M: 14200 [facility] Hosp L2
--- NOTE | 2019-11-14 09:07 | DCINST_ITS ---
Discharge Diet: Low fat/ Low Cholesterol Discharge Activity: Return to Normal Activity Return to work on:: 11/20/19 May shower in (days): 1 Lifting Restrictions: 10 pounds and also avoid any pushing or pulling for 3 days after your test. Call your doctor if your incision/area has: Continuous Slow Oozing, Sudden Increased Bleeding, Increased Pain/ Swelling, Increased Redness, Foul Smelling Discharge, Swelling at the incision site Call your doctor if you observe: Fever of 101 or Higher, Dizziness, Chest pain Remove Dressing in (days):: 1 Cleanse incision/area with: Soap & Water, Normal Saline Additional Dressing/Incision Instructions:: Keep the dressing (bandage) on until the next morning. You may then shower, but do not take a tub bath for 5 days after your test. It is normal to have some tenderness and discomfort at the puncture site. Sometimes bruising also occurs. However, if pain, numbness, or coldness occurs below the puncture site (in your leg, toes, arms or fingers) call your doctor at once. You may have a small, marble sized knot at the puncture site. This is normal. Do not rub it. It will go away in 4-6 weeks. Bleeding can occur from the area where the puncture was done. Blood may spurt or drip from the site. If blood spurts, apply pressure right away to stop bleeding and call 911. Although rare, bleeding into the tissue (hematoma) can also occur. If this happens, a large, firm area goose egg under the skin will appear. If any of these occur, lie down as flat as you can and have someone apply firm p ressure to the cath site with a gauze pad or a clean washcloth for 10-15 minutes. Call 911 or go to the Emergency Department. Additional Instructions: Your coreg has been discontinued d/t low HR readings. I sent the rest of your Rx's to the [facility] pharmacy Allergies/Adverse Reactions: Allergies No Known Allergies Allergy (Verified 11/10/19 08:07) Medications to take at Discharge Testosterone [Androgel] 5 gm TD DAILY 09/12/17 Aspirin E.C. [Ecotrin] 81 mg PO DAILY #90 tab 11/14/19 Atorvastatin Calcium [Lipitor] 80 mg PO QHS #90 tab 01/07/20 Carvedilol [Coreg (Beta Judson)] 3.125 mg PO BID #180 tab 11/14/19 Lisinopril [Zestril] 5 mg PO DAILY #90 tab 11/14/19 Nitroglycerin (INPATIENT USE) [Nitrostat] 0.4 mg SUBLINGUAL Q5M PRN #25 tab.subl 11/14/19 Ticagrelor [Brilinta] 90 mg PO BID #180 tab 11/14/19 The following prescriptions were given: Ticagrelor [Brilinta] 90 mg PO BID #180 tab Transmission Status: Pending to [facility]/pharmacy #[id number] Carvedilol [Coreg (Beta Judson)] 3.125 mg PO BID #180 tab Transmission Status: Pending to [facility]/pharmacy #[id number] Aspirin E.C. [Ecotrin] 81 mg PO DAILY #90 tab Transmission Status: Pending to [facility] Atorvastatin Calcium [Lipitor] 80 mg PO QHS #90 tab Transmission Status: Pending to [facility]/pharmacy #[id number] Nitroglycerin (INPATIENT USE) [Nitrostat] 0.4 mg SUBLINGUAL Q5M PRN #25 tab.subl PRN Reason: Cardiac/Chest Pain Transmission Status: Pending to [facility] Lisinopril [Zestril] 5 mg PO DAILY #90 tab Transmission Status: Pending to [facility]/pharmacy #[id number] Primary Care Physician: Jerson Candelario MD [Primary Care Provider] - Test Results: Test results from this visit will be discussed in further detail at your follow- up appointment, if applicable. Please Follow Up With: Ya Morris PA When: 11/28/19 at 1530 Cardiac Rehabilitation Info Cardiac Rehabilitation Program Information: Cardiac Rehabilitation is important for patients like you who are recovering from a heart problem. Cardiac rehabilitation programs are recognized as integral to the continued care of the patient with coronary heart disease. The cardiac rehabilitation program is designed to optimize a patient's physical, psychological, and social functioning. Health point of care technician work in cardiac rehabilitation programs and assist you with getting the treatments you need to get stronger and healthier - like exercise, healthy eating habits, and medications. Cardiac rehabilitation has been show to help people with heart problems live longer and have better life enjoyment than people who do not go to cardiac rehabilitation. Please contact the Cardiac Rehabilitation Program at [facility] at in two weeks if you have not heard from them.
[2019-11-14] MEDS: Carvedilol 3.125 MG TABLET PO (09:10)
[2019-11-14] MEDS: TICAGRELOR 90 MG TABLET PO (09:10)
[2019-11-14] MEDS: Aspirin E.C. 81 MG Tablet PO (09:10)
[2019-11-14] MEDS: Lisinopril 5 MG Tablet PO (09:10)
--- NOTE | 2019-11-14 10:00 | EKG12_ITS ---
Test Reason : MORNING EKGG Blood Pressure : / mmHG Vent. Rate : 056 BPM Atrial Rate : 056 BPM P-R Int : 170 ms QRS Dur : 100 ms QT Int : 398 ms P-R-T Axes : 047 -24 043 degrees QTc Int : 384 ms Sinus bradycardia Inferior infarct , age undetermined , cannot be excluded Nonspecific T wave abnormality Abnormal ECG Confirmed by DILLAN CHANDLER, JALEN ([id number]), supervising film or videotape editor CHASE SARKAR ([id number]) on 11/15/2019 12:02:21 PM Referred By: Cornell Bergeron Confirmed By:JALEN GRIMALDO MD
== END 2019-11-14 10:10 | disposition home or self-care (01) ==
LOC: CLSP 10:11 → ICU 13:02
PROVIDERS: Family Provider Family Medicine; PCP Family Medicine; Referring Provider Internal Medicine Cardiovascular Disease; Visit Provider Internal Medicine Cardiovascular Disease
DX: I25.10 Atherosclerotic heart disease of native coronary artery without angina pectoris (principal); I25.2 Old myocardial infarction; I10 Essential (primary) hypertension; E78.5 Hyperlipidemia, unspecified; Z79.82 Long term (current) use of aspirin; Z79.899 Other long term (current) drug therapy; Z87.891 Personal history of nicotine dependence
CPT/HCPCS: 80053; 85027; 85347; 92921; 92928; 93005; C1760; J7030; J7040; Q9967; C1725; C1769; C1874; C1887; C9600

== ENCOUNTER → 2019-12-08 12:34 | Outpatient (CLI) | payer OTHER, SELFPAY ==
[2019-10-24 07:57] VITALS: BMI 29.7
[2019-11-28 11:27] VITALS: BMI 28.5
--- NOTE | 2019-12-08 12:49 | PCM.CR.HP2 ---
CR - History & Physical - General Arrival date:: 12/08/19 Arrival time:: 12:49 Date of Referral:: 10/23/19 Date of CR Evaluation:: 12/08/19 Referring Physician: Dr. Cornell Bergeron Primary Diagnosis: PCI with stenting - History of Present Cardiac Event Onset Date: Enter Onset Date of cardiac illnesses in Comment field below Acute Myocardial Infarction within 12 months:: Yes Coronary Artery Bypass Graft:: No PTCA or coronary stenting:: Yes - 10/23/19 Interventions with present event:: PCI with Stent - Medications Home Medications: Ambulatory Orders Medication Instructions Recorded Testosterone [Androgel] 5 gm TD DAILY 09/12/17 Aspirin E.C. [Ecotrin] 81 mg PO DAILY #90 tab 11/14/19 Nitroglycerin (INPATIENT USE) 0.4 mg SUBLINGUAL Q5M PRN #25 11/14/19 [Nitrostat] tab.subl atorvastatin 80 mg tablet 80 mg PO QHS #90 tab 11/14/19 lisinopril 5 mg tablet 5 mg PO DAILY #90 tab 11/14/19 ticagrelor 90 mg tablet 90 mg PO BID #180 tab 11/14/19 - Allergies Allergies/Adverse Reactions: Allergies No Known Allergies Allergy (Verified 11/28/19 15:23) - Sleep Disorder Evaluation Hx of Sleep Apnea: No Do you snore loudly (louder than talking or can be heard through closed doors)?: Yes Do you often feel tired/ fatigued/ sleepy during daytime?: No Has anyone observed you stop breathing during sleep?: No History of Hypertension (for STOP score): Yes - Pt declines sleep study STOP Results: Positive Advanced Directives - Advanced Directives Power of Hand Frame Surgical Elastic Knitter: No Living Will: No Advance Directives Information Provided: No Advance Directives on File: No DNR Order?:: No Past Medical History - Past Medical Illness Medical History: Past Medical History (Last Reviewed 11/28/19 @ 16:20 by CRISTINO Harper) Arteriosclerosis of coronary artery in patient with history of myocardial infarction (Chronic) Onset Date: 10/23/19 I25.10, I25.2 STEMI (ST elevation myocardial infarction) (Acute) I21.3 - Past Surgical History Surgical History: Past Surgical History (Last Reviewed 11/28/19 @ 16:20 by CRISTINO Harper) Stented coronary artery (Chronic) Onset Date: 11/13/19 Z95.5 Successful Emergent Heparin/Integrilin assisted PTCA/MALIK mid LAD with a 2.5 x 38 Promus Synergy; Successful Emergent Heparin/Integrilin assisted PTCA/MALIK proximal LAD with a 2.5 x 32 Promus Synergy [facility]23/19 [facility] per DJN 11/13/2019:Successful PTCA/MALIK mid LCX with a 2.5 x 28 Promus Synergy stent; Successful PCI with PTCA to the ostial OM#1 with a 2.0 x 12 Emerge balloon Social History - Smoking History Smoking Status: Former smoker Years Smokin Packs Smoked per Day: 0.5 Hx Tobacco Use: Yes Hx Smoking Exposure: Yes - Alcohol Use Alcohol Usage: No - Substance Abuse Hx Substance Use: No - Occupation Occupation (List type of work in comments):: Employed Hours worked per day:: 10 Returned to work on:: 11/20/19 - Hobbies, Recreation, Social Activities Hobbies: Other - yardwork Recreational Activities: I am able to engage in all my recreational activities Social Environment - Status Marital Status: - Current Living Arrangements Living Environment:: Spouse - Children How many children do you have?: 2 Do any of your children live nearby?: Yes - Safety Do you feel safe in your surroundings?: Yes - Assistance Do you need any assistance at home?: none Review of Systems - Review of Systems Hints: Right click = Denies (Slash). Left click = Reports ([place]) Review of Present Symptoms: Reports: Shortness of Breath at Rest, Appetite - Normal, Sleep - Normal. Denies: Shortness of Breath with Exertion, PVD, Operative Discomfort, Angina, Wound Healing, Dizziness/Lightheadedness, Fatigue, Heart Arrhythmia/Irregularities, Appetite - Special Diet, Sexual Changes - Pain Is Patient Pain Free?: No Pain Location: none Risk Factor Assessment - Chief Complaint Chief Complaint: CP - Vital Signs Pulse Ox: 96 Blood Pressure: 130/80 - Pulse Pulse Rate: 77 Pulse Rhythm: Regular - Hypertension How long have you been treated?: 10/23/19 Blood Pressure Sitting - Left Arm: 130/80 - Blood Cholesterol/Lipids Total Cholesterol (mg/dL) Goal = less than 200 mg/dL: 150 HDL Cholesterol (mg/dL) Goal = less than 40 mg/dL: 38 LDL Cholesterol (mg/dL) Goal = less than 70 mg/dL: 138 Triglycerides (mg/dL) Goal = less than 150 mg/dL: 226 - Diabetes Nutrition Referral for Diabetes: No - Obesity Height: 1.75 m Weight:: 87.543 kg Weight in Pounds: 193.0 lbs Body Mass Index (BMI): 28.5 Nutritional Referral for Obesity: No - Risk Stratification Risk Guidelines: Moderate Risk: Risk Factor for Smoking, Risk Factor for Dyslipidemia, Risk Factor for Diabetes, Risk Factor for Obesity, Risk Factor for Hypertension, Risk Factor for Sedentary Lifestyle, Risk Factor for Depression - For Smoking Smoking Risk Guidelines: Smoking Low Risk: None or quit greater than 6 months ago. Smoking Moderate Risk: Smoker or quit 6 months or less ago. Smoking High Risk: Smoker - For Dyslipidemia Dyslipidemia Risk Guidelines: Low Risk: Moderate Risk: High Risk: 15-25% fat 25.1-29% fat >/= 30% fat. <7% sat fat 7-9% sat fat >9% sat fat. <150 mg chol 150-299 mg chol >/= 300 mg chol. LDL <100 LDL 100-129 LDL >/= 130. Chol/HDL ratio <5.0 Chol/HDL ratio 5.0-6.0 Chol/HDL ratio >6.0. Triglycerides <100 Triglycerides 100-149 Triglycerides >/= 150 - For Diabetes Mellitus Diabetes Risk Guidelines: Diabetes Low Risk: HgA1c <6.5% and/or FBG <120. Diabetes Moderate Risk: HgA1c 6.6-7.9% and/or FBG 120-180. Diabetes High Risk: HgA1c >/= 8% and/or FBG >180 - For Obesity/Overweight Obesity/Overweight Risk Guidelines: Obesity Low Risk: BMI <25.0. Obesity Moderate Risk: BMI 25-29.9. Obesity High Risk: BMI >/= 30.0 - For Hypertension Hypertension Risk Guidelines: Hypertension Low Risk: Systolic <120 and Diastolic <80. Hypertension Moderate Risk: Systolic 120-139 and Diastolic 80-89. Hypertension High Risk: Systolic >/= 140 and Diastolic >/= 90 - For Sedentary Lifestyle Sedentary Lifestyle Risk Guidelines: Sedentary Lifestyle Low Risk: >/= 1,500 kcal/week. Sedentary Lifestyle Moderate Risk: 700-1,499 kcal/week. Sedentary Lifestyle High Risk: < 700 kcal/week - For Depression Depression Risk Guidelines: Depression Low Risk: Not clinically depressed. Depression Moderate Risk: Mildly depressed. Depression High Risk: Clinically depressed Motivation - Motivation to Participate On a scale of 1 to 10, how prepared are you to commit to attending program?: 10 What do you see as barriers to successfully being able to complete the program?: none What do you see as the benefits of succesfully completing the program? In other words, what do you hope to get out of participating in the program?: improved health Are there issues you are dealing with that will interfere with completing the program?: none Do you have a spouse or signficant other, family or friends who will help support you to complete the program?:
[2019-12-08 13:38] VITALS: BP 130/80; PULSE 77; O2SAT 96; BMI 28.5
--- NOTE | 2019-12-08 13:47 | CR.ITP_ITS ---
Diagnosis - General Information Admitting Diagnosis: PCI with Stent Secondary Diagnosis: STEMI Personal Learning Style:: Audio/Visual, Written Barriers to Learning: No Barriers Stage of change r/t lifestyle modifications:: Action Gave educational material for:: Treating Heart Disease, Emotions & Heart Disease, Stress Management & Relaxation, Sleep Disorders & Heart Disease, How The Heart Works, What it means to have Heart Disease, How Coronary Artery Disease is Diagnosed, Heart Procedures, What Heart Medications Do, Risk Factors & Modifications, Living an Active Life, Nutrition - Education/Goals Individual Counseling: Initial Assessment: Abnormal Cholesterol Levels, High Blood Pressure, Overweight/Obesity - BMI 28.5 Cardiac Rehabilitation Goals: 1. Maintain the individual as the primary focus of care. 2. To improve the patient's quality of life. 3. Identification of cardiac risk factors and provide cardiac risk factor management. 4. Enhance the psychosocial status of the patient. 5. Reconditioning enough to allow the patient to resume customary activities. 6. Control symptoms of cardiac disease Personal Goals: Initial Assessment: Improve knowledge of cardiac disease, Improve muscle strength and endurance, Improve diet and eating habits (eat healthier), Control risk factors (learn risk factor modification) Scale for measuring improvement of personal goals: Enter appropriate number in Comments. 2 = Unchanged. 3 = Slightly Better. 4 = Moderate Improvement. 5 = Met my Goal - Diagnosis & Disease Process Outcomes/Goals: Pt IDs own risk factors & lifestyle modifications by Session 10, Verbalizes symptoms of angina & response by session 3., Pt independently manages, Other Additional Outcomes/Goals: Plan/Interventions: Assist Pt to ID & engage in lifestyle modification to reduce CVD risk, Instruct on individual risk factors, Review symptoms of angina & emergency actions, Review secondary diagnosis & identify educational needs., Other see comment - Safety Referral to Physical Therapy: No Referral to [facility] Case Management: No Fall Risk Assessed:: Yes Assistive Devices:: None Exercise - Initial Assessment - Visit Date of Eval: 12/08/19 Session #:: 0 - initial eval Mets: Pre-: >7 METS for 30 minutes by discharge - Physician Prescribed Exercise Modalities: Treadmill, Rower, Airdyne Frequency: 3x/week for 12 weeks [36 sessions] Intensity: 60-80% of age predicted maximum heart rate reserve Current METSs:: 4 Target Heart Rate:: 104-136 Resting Blood Pressure: 130/80 EKG Type: Sinus preston 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 - Outcomes & Goals Goals:: Verbalizes understanding of THR, RPE & goal METS by session 6, Documents in home exercise log/reports 30 min aerobic 5 day/wk by DC, Demonstrates accurate pulse taking by DC, Other additional outcome/goals: see below - Intervention & Plan Exercise Program Goals: Instruct on personal THR & RPE, Instruct on MET level & personal MET goal, Show patient to take own pulse /validate performance until accurate, Instruct on home exercise, Other additional plan/int - Physical Activity Home Exercise Physical Activity - Home Exercise: Safe Exercise, Warm-up, Self-monitoring, Cool-Down, Home Exercise > 30 min Daily, Sitting Time <3 hours/daily - Outcomes & Goals Outcomes/Goals: Demonstrates correct Warm-up/exercise Cool-Down (S3) if = 2.5 METs, Verbalizes symptoms of exercise intolerance by Session 3 (S3), Demonstrate safe equipment use (S3) & follows exercise prescrition (6), Other: See below - Intervention & Plan Plan/Intervention: Instruct warm-up & cool-down if exercising at > 2 METs, Instruct on symptoms of exercise intolerance & actions to take, Instruct & monitor on saf, Assess intial functional capacity & safety risk, Other See below Nutrition - Initial Assessment - Program Goals Nutrition Program Goals: LDL <100 optimal. 100 - 129 Near optimal. 130 - 159 Borderline High. 160 - 189 High. Total Cholesterol <200 desirable. 200 - 239 Borderline High. >/= 240 High. HDL < 40 Low >/=60 High. Triglycerides <150 desirable. <199 optimal. VlDL 5 - 40. HgbA1C <7%. BMI <25 Patient has diagnosis of Hyperlipidemia (ICD E78)?: Yes - Visit Date of Assessment:: 12/08/19 - Cholesterol/Lipids Triglycerides (mg/dL): 226 Total Cholesterol (mg/dL): 150 LDL Cholesterol (mg/dL): 124 HDL Cholesterol (mg/dL): 38 Lipid Medication: atorovastatin Determine presence & major risk factors that modify LDL goal: Hypertension or hypertensive medication, Family history of premature CHD in Male < 55 years: female <65 yearsFa Outcomes/Goals: Pt IDs own risk factors & lifestyle modifications by Session 10, Verbalizes symptoms of angina & response by session 3., Pt independently manages, Other Additional Outcomes/Goals: Intervention/Plan: Advocate for lipid panel cholesterol medication if applicable, Instruct on personal lipid levels & lipid goals/NCEP guidelines, Instruct on cholesterol, Other additional plan/int Referral to dietitian:: Yes - medical nutrician therapy - Diabetes (Other Core Measures) Diabetes Type: Not Applicable - Weight Mgt (Other Care) Not Applicable: Yes Height: 1.75 m Weight:: 87.543 kg BMI: 28.5 Diagnosis Overweight/Obesity BMI> 30% ICD-10 E66: Yes Outcomes/Goals: Pt sets, maintains & shows weight loss goal & trend during rehab Intervention/Plan: Instruct on ideal BMI & set weight loss goal w/patient, Assist pt to ID & incorporate diet changes for weight loss by S9, Refer to Structured Weight Loss program as appropriate - Healthy Eating Habits Will attend diet classes:: Yes Outcomes/Goals:: Consume diet rich in vegs,fruits,whole grain/high fiber,fish,lean meat, Limit sat/trans fats,cholesterol & added salts & sugars, Other additional outcome/goals: Intervention/Plan:: Assess current eating habits, Other Additional plan/interventions - Education Gave educational materials for:: Signs & symptoms of hypoglycemia, Signs & symptoms of hyperglycemia, Relate diabetes to coronary artery disease, Healthy eating Medical - Initial Assessment - Visit Date of Eval: 12/08/19 Session #:: 0 - Medication Compliance Preventative Medication(s):: Aspirin, Ticagrelor/P2Y12 inhibitor, Statin/lipid H/O mental health issues: depression, anxiety, or addiction?: No Doesn?t believe in the benefits of treatment?: No Believes medications are unnecessary or harmful?: No Has a concern about medication side effects?: No Expresses concern over the cost of medications?: No Outcomes/Goals: Verbalizes medications,desired effect & common side effects @ DC, Pt self-reports following medication regimen, Keeps card in wallet w/medications listed by DC, Other additional outcome/goals: Interventions/plans: Instruct on medication effects & side effects, Review medication list w/patient every two weeks, Instruct importance of taking meds as ordered & assist problem solving, Other additional - Tobacco Use Tobacco Use: Non-smoker How long ago did you quit using tobacco products?: Greater than or equal to 6 months ago Do you use smokeless tobacco?: No - Hypertension Resting Blood Pressure:: 130/80 [place] [employer] Hypertension Guidelines: [place] [employer] Hypertension Guidelines. Normal BP Less than 120/80. Elevated BP 120/80. Hypertension Stage 1: BP 130-139/80-89. Hypertesnion Stage 2: BP 140 or higher/90 or higher. Hypertension Crisis: BP higher than 180/120 Outcomes/Goals: Able to verbalize/achieve optimal blood pressure <130/80, Incorporates diet changes & exercise for blood pressure control by DC, Other additional outcomes/goals Interventions/plan: Instruct on optimal blood pressure, hypertension & medications, Instruct on effects of sodium, alcohol, stress, exercise &hypertension, Other additional plan/interventions - Tobacco Cessation Referral Smoking Cessation Referral:: No Individual Education/Counseling:: No Education Schedule Given:: Yes Psychosocial - Initial Assess - VIsit Date of Eval: 12/08/19 Session #:: 0 History of previous Mental disease:: No - Target Goals Target Goals: Assess presence or absence of depression. Using a valid screening tool, maximizes coping skills. Positive support system - Psychosocial Test Tool Used:: Lesvia Benitez QOL Cardiac, PHQ-9 Questionnaire phq-9 Severity: Severity. 1-4 Minimal Depression. 5-9 Mild Depression. 10-14 Moderate Depression. 15-19 Moderately Sever Depression. 20-27 Severe Depression. Rule: See PHQ-9 Score: 1 - Referral to Behavioral Health PS - Interventions: Yes Attend Stress Management Classes, No Referral to Behavioral Health if PHQ-9 score >9:, No Referral to [facility], No Referral to Physician if PHQ-9 if score is 5-9: - Outcomes/Goals: See list Psychosocial Outcomes/Goals:: ID's personal stressors & 2 strategies to manage stress by discharge, Other Additional outcome/goals: - Intervention/Plan: See List Interventions/Plan:: Assess stressors,coping strategies & signs of derpression on admission, Instruct/assist pt to develop coping & personal stress Mgt strategies, Refer to Behavioral Health if appropriate, Refer to Physician if appropriate, Instruct patient to recognize signs & symptoms of depression, Instruct patient to recog, Other additional plan/intervention Patient Health Questionnaire Initial Assessment 1. Little interest or pleasure in doing things: Several days 2. Feeling down, depressed, or hopeless: Not at all 3. Trouble falling or staying asleep, or sleeping too much: Not at all 4. Feeling tired or having little energy: Not at all 5. Poor appetite or overeating: Not at all 6. Feeling bad about yourself -- or that you are a failure or have let yourself or your family down: Not at all 7. Trouble concentrating on things, such as reading the newspaper or watching television: Not at all 8. Moving or speaking so slowly that other people could have noticed. Or the opposite - being so fidgety or restless that you have been moving around a lot more than usual: Not at all 9. Thoughts that you would be better off , or of hurting yourself in some way: Not at all How difficult have these problems made it for you to do your work, take care of things at home, or get along with other people?: Not difficult at all Total Score: 1 IMANI-Q SV Test - Statements CAD is a disease of the arteries in the heart: False Examples of risk factors for heart disease: True Angina is chest pain or discomfort: True The benefits of resistance training include: True Eating more meat and dairy products: False Anti-platelet medications such as aspirin are important: True The only effective way to manage stress: False An exercise warm-up slowly increases heart rate: True Prepared, processed foods usually have high sodium: True Depression is common after a heart attack: I Don't Know The statin medications lower cholesterol: True To control blood pressure, lower the amount of sodium: True If someone gets chest discomfort during walking: False Transfats are partially hydrogenated vegetable oils: True Sleep apnea that is not treated increases the risk: True To control cholesterol, one should become a vegetarian: False Someone knows if he/she is exercising at the right level: I Don't Know Diabetes cannot be prevented with exercise & health eating: False Stress is a large risk for heart attack: True A diet that can help lower blood pressure is rich in: True - Total Score Total Correct Responses: 17 Self-Efficacy Initial Assessment We would like to know how confident you are in doing certain activities. Please select your confidence level for:: Select your confidence level for the following using the scale 1-10 where 1 is not at all confident and 10 is totally confident. Your score is the average of all 6 responses. Fatigue: How confident are you that you can keep the fatigue caused by your disease from interfering with the things you want to do? Select Number: 9 Physical Discomfort or Pain: How confident are you that you can keep the physical discomfort or pain of your disease from interfering with the things you want to do? Select Number: 9 Emotional Distress: How confident are you that you can keep the emotional distress caused by your disease from interfering with the things you want to do? Select Number: 9 Other Symptoms or Health Problems: How confident are you that you can keep other symptoms or health problems from interfering with the things you want to do? Select Number: 9 Different Tasks and Activities: How confident are you that you can do the different tasks and activities needed to manage your health condition so as to reduce your need to see a doctor? Select Number: 9 Medication: How confident are you that you can do things other than just taking medication to reduce how much your illness affects your everyday life? Select Number: 9 Total Score:: 9 Nutrition Survey - Nutrition Survey Instructions Scoring Instructions: Scoring is as follows: Yes = 1 points. No = 0 point. Patient score that is >/=12 is considered to be at potential nutritional risk and could benefit from a referral to a registered dietitian. - Nutrition Survey Initial Have you lost >10 lbs over the past 2 months without trying?: No Are you following a special diet at home for diabetes, low fat, or low salt?: Yes Are you interested in meeting with a dietitian for help understanding your diet?: Yes Do you eat less than 3 meals a day?: No Do you eat fatty meats (vang, sausage, ribs, etc), fried foods, desserts, large amounts of salad dressings, margarine, butter, or cheese most days?: Yes Do you have food allergies? [Enter types in comment field]: No Do you eat in restaurants more than 3 times a week?: No Do you season food with salt, seasoning salt, or garlic salt?: No Do you used canned, boxed, frozen meals, or soups, seasoning packets?: Yes Total Score:: 4
[2019-12-08 14:09] VITALS: BP 130/80; BMI 28.5
== END ==
PROVIDERS: PCP Family Medicine; Referring Provider Internal Medicine Cardiovascular Disease; Visit Provider Internal Medicine Cardiovascular Disease
DX: I25.10 Atherosclerotic heart disease of native coronary artery without angina pectoris (principal); I25.2 Old myocardial infarction; Z95.5 Presence of coronary angioplasty implant and graft; Z79.82 Long term (current) use of aspirin; Z79.899 Other long term (current) drug therapy; Z87.891 Personal history of nicotine dependence

== ENCOUNTER → 2019-12-09 06:48 | Outpatient (CLI) | payer OTHER, SELFPAY ==
[2019-12-08 13:38] VITALS: BMI 28.5
[2019-12-08 14:09] VITALS: BMI 28.5
[2019-12-09 08:48] LABS: AST(SGOT) 21 U/L (15-37); Alanine Aminotransfer ALT/SGPT 39 U/L (16-61); Albumin, Serum 3.8 g/dL (3.2-5.0); Alkaline Phosphatase 116 U/L (45-117); Bilirubin, Direct 0.19 mg/dL (0.00-0.30); Cholesterol 108 mg/dL (200); Globulin 4.2 g/dL (2.2-4.2); High Density Lipoprotein 38 mg/dL; Triglycerides 73 mg/dL; Very Low Density Lipoprotein 15 mg/dL (5-40)
== END ==
PROVIDERS: PCP Family Medicine; Referring Provider Physician Assistant Medical; Visit Provider Physician Assistant Medical
DX: I25.10 Atherosclerotic heart disease of native coronary artery without angina pectoris (principal); I25.2 Old myocardial infarction
CPT/HCPCS: 36415; 80061; 80076

== ENCOUNTER 2020-01-05 15:15 | Outpatient (RCR) | payer OTHER, SELFPAY ==
[2019-10-24 07:57] VITALS: BMI 29.7
[2019-12-08 13:38] VITALS: BMI 28.5
[2019-12-08 14:09] VITALS: BMI 28.5
== END 2020-01-06 23:59 ==
LOC: CR 15:15
PROVIDERS: PCP Family Medicine; Referring Provider Internal Medicine Cardiovascular Disease; Visit Provider Internal Medicine Cardiovascular Disease
DX: I25.10 Atherosclerotic heart disease of native coronary artery without angina pectoris (principal); I25.2 Old myocardial infarction; I21.3 ST elevation (STEMI) myocardial infarction of unspecified site; Z95.5 Presence of coronary angioplasty implant and graft
CPT/HCPCS: 93798

== ENCOUNTER 2020-01-24 15:15 | Outpatient (RCR) | payer OTHER, SELFPAY ==
[2019-12-08 13:38] VITALS: BMI 28.5
[2019-12-08 14:09] VITALS: BMI 28.5
--- NOTE | 2020-01-08 13:07 | PCM.CR.ITP ---
Diagnosis - General Information Admitting Diagnosis: S/P PCI W/CORONARY STENT Secondary Diagnosis: STEMI Personal Learning Style:: Audio/Visual, Written Barriers to Learning: Vision Impairment Stage of change r/t lifestyle modifications:: Action Gave educational material for:: Treating Heart Disease, Emotions & Heart Disease, Stress Management & Relaxation, Sleep Disorders & Heart Disease, How The Heart Works, What it means to have Heart Disease, How Coronary Artery Disease is Diagnosed, Heart Procedures, What Heart Medications Do, Risk Factors & Modifications, Living an Active Life, Nutrition - Education/Goals Individual Counseling: Initial Assessment: Abnormal Cholesterol Levels, High Blood Pressure Cardiac Rehabilitation Goals: 1. Maintain the individual as the primary focus of care. 2. To improve the patient's quality of life. 3. Identification of cardiac risk factors and provide cardiac risk factor management. 4. Enhance the psychosocial status of the patient. 5. Reconditioning enough to allow the patient to resume customary activities. 6. Control symptoms of cardiac disease Personal Goals: Initial Assessment: Improve energy level, Improve knowledge of cardiac disease, Improve muscle strength and endurance, Improve diet and eating habits (eat healthier), Control risk factors (learn risk factor modification) Scale for measuring improvement of personal goals: Enter appropriate number in Comments. 2 = Unchanged. 3 = Slightly Better. 4 = Moderate Improvement. 5 = Met my Goal - Diagnosis & Disease Process Outcomes/Goals: Pt IDs own risk factors & lifestyle modifications by Session 10, Verbalizes symptoms of angina & response by session 3., Pt independently manages Plan/Interventions: Assist Pt to ID & engage in lifestyle modification to reduce CVD risk, Instruct on individual risk factors, Review symptoms of angina & emergency actions, Review secondary diagnosis & identify educational needs. 30 day Reassessments:: Progressing - Safety Referral to Physical Therapy: No Referral to [facility] Case Management: No Fall Risk Assessed:: Yes Assistive Devices:: None Exercise - 30-day Assessment - Visit Date of Eval: 01/08/20 Session #:: 12 - Physician Prescribed Exercise Modalities: Treadmill, Rower, Airdyne, NuStep Frequency: 3x/week for 12 weeks [36 sessions] Intensity: 60-80% of age predicted maximum heart rate reserve Current METSs:: 6.0 INCREASE FROM 4.0 Target Heart Rate:: 104-136 Current RPE:: 12-13 Maximum Excercise HR:: 141 ON AIRDYNE BIKE Resting Blood Pressure: 118/58 - CONTROLLED Maximum Exercise Blood Pressure: 162/80 EKG Type: NSR TO SINUS TACHYCARDIA WITHOUT ECTOPY. - Outcomes & Goals Goals:: Verbalizes understanding of THR, RPE & goal METS by session 6, Documents in home exercise log/reports 30 min aerobic 5 day/wk by DC, Demonstrates accurate pulse taking by DC - Intervention & Plan Exercise Program Goals: Instruct on personal THR & RPE, Instruct on MET level & personal MET goal, Show patient to take own pulse /validate performance until accurate, Instruct on home exercise - 30-day Reassessments 30 day Reassessments:: Progressing - Physical Activity Home Exercise Physical Activity - Home Exercise: Safe Exercise, Warm-up, Self-monitoring, Cool-Down, Home Exercise > 30 min Daily, Sitting Time <3 hours/daily - Outcomes & Goals Outcomes/Goals: Demonstrates correct Warm-up/exercise Cool-Down (S3) if = 2.5 METs, Verbalizes symptoms of exercise intolerance by Session 3 (S3), Demonstrate safe equipment use (S3) & follows exercise prescrition (6) - Intervention & Plan Plan/Intervention: Instruct warm-up & cool-down if exercising at > 2 METs, Instruct on symptoms of exercise intolerance & actions to take, Instruct & monitor on saf, Assess intial functional capacity & safety risk - 30-day Reassessments 30 day Reassessments:: Progressing Nutrition - 30-Day Assessment - Program Goals Nutrition Program Goals: LDL <100 optimal. 100 - 129 Near optimal. 130 - 159 Borderline High. 160 - 189 High. Total Cholesterol <200 desirable. 200 - 239 Borderline High. >/= 240 High. HDL < 40 Low >/=60 High. Triglycerides <150 desirable. <199 optimal. VlDL 5 - 40. HgbA1C <7%. BMI <25 Patient has diagnosis of Hyperlipidemia (ICD E78)?: Yes - Visit Date of Assessment:: 01/08/20 Session #:: 12 - Cholesterol/Lipids Triglycerides (mg/dL): 0 - NO NEW LABS Determine presence & major risk factors that modify LDL goal: Hypertension or hypertensive medication, Age men > 45 years; women >/= 55 years Outcomes/Goals: Pt IDs own risk factors & lifestyle modifications by Session 10, Verbalizes symptoms of angina & response by session 3., Pt independently manages Intervention/Plan: Instruct on personal lipid levels & lipid goals/NCEP guidelines, Instruct on cholesterol Referral to dietitian:: Yes - MEDICAL NUTRITION THERAPY - HYPERLIPIDEMIA/HYPERTENSION 30-day Reassessments:: Progressing - Diabetes (Other Core Measures) Diabetes Type: Not Applicable - Weight Mgt (Other Care) Not Applicable: No Height: 5 ft 9 in Weight:: 190 lb 8 oz - DOWN FROM 193 BMI: 28.1 Diagnosis Overweight/Obesity BMI> 30% ICD-10 E66: No Diagnosis High BMI/Morbid Obesity BMI> 35% ICD-10 Z68: No Outcomes/Goals: Pt sets, maintains & shows weight loss goal & trend during rehab Intervention/Plan: Instruct on ideal BMI & set weight loss goal w/patient, Assist pt to ID & incorporate diet changes for weight loss by S9, Encourage goal of using 250-300dcal per session for weight loss 30 day Reassessments:: Progressing - Healthy Eating Habits Will attend diet classes:: Yes Outcomes/Goals:: Consume diet rich in vegs,fruits,whole grain/high fiber,fish,lean meat, Limit sat/trans fats,cholesterol & added salts & sugars Intervention/Plan:: Assess current eating habits 30-day Reassessments:: Progressing - Education Gave educational materials for:: Healthy eating Medical- 30-Day Assessment - Visit Date of Eval: 01/08/20 Session #:: 12 - Medication Compliance Preventative Medication(s):: Aspirin, Ticagrelor/P2Y12 inhibitor, Statin/lipid, Beta kim H/O mental health issues: depression, anxiety, or addiction?: No Doesn?t believe in the benefits of treatment?: No Believes medications are unnecessary or harmful?: No Has a concern about medication side effects?: No Expresses concern over the cost of medications?: No Outcomes/Goals: Verbalizes medications,desired effect & common side effects @ DC, Pt self-reports following medication regimen, Keeps card in wallet w/medications listed by DC Interventions/plans: Instruct on medication effects & side effects, Review medication list w/patient every two weeks, Instruct importance of taking meds as ordered & assist problem solving 30-day Reassessments:: Progressing - Tobacco Use Tobacco Use: Non-smoker - Hypertension Hypertension Diagnosis:: Hypertension ICD-10 I10 Resting Blood Pressure:: 118/58 - CONTROLLED [place] [employer] Hypertension Guidelines: [place] [employer] Hypertension Guidelines. Normal BP Less than 120/80. Elevated BP 120/80. Hypertension Stage 1: BP 130-139/80-89. Hypertesnion Stage 2: BP 140 or higher/90 or higher. Hypertension Crisis: BP higher than 180/120 Peak Exercise Blood Pressure:: 162/80 Outcomes/Goals: Able to verbalize/achieve optimal blood pressure <130/80, Incorporates diet changes & exercise for blood pressure control by DC Interventions/plan: Instruct on optimal blood pressure, hypertension & medications, Instruct on effects of sodium, alcohol, stress, exercise &hypertension 30 day Reassessments:: Progressing - Tobacco Cessation Referral Smoking Cessation Referral:: No Individual Education/Counseling:: No Education Schedule Given:: Yes Psychosocial - 30-Day Assess - VIsit Date of Eval: 01/08/20 Session #:: 12 Not Applicable: Yes History of previous Mental disease:: No - Target Goals Target Goals: Assess presence or absence of depression. Using a valid screening tool, maximizes coping skills. Positive support system - Psychosocial Test Tool Used:: Ferrans Memeo QOL Cardiac, PHQ-9 Questionnaire phq-9 Severity: Severity. 1-4 Minimal Depression. 5-9 Mild Depression. 10-14 Moderate Depression. 15-19 Moderately Sever Depression. 20-27 Severe Depression. Rule: - Referral to Behavioral Health PS - Interventions: No Referral to Behavioral Health if PHQ-9 score >9:, No Referral to [facility], No Referral to Physician if PHQ-9 if score is 5-9: - Outcomes/Goals: See list Psychosocial Outcomes/Goals:: ID's personal stressors & 2 strategies to manage stress by discharge - Intervention/Plan: See List Interventions/Plan:: Assess stressors,coping strategies & signs of derpression on admission, Instruct/assist pt to develop coping & personal stress Mgt strategies, Instruct patient to recognize signs & symptoms of depression, Instruct patient to recog - 30-day Reassessments: 30 day Reassessments:: Progressing Reassessment Notes & Comments:: DOING BETTER BEING BACK TO WORK Patient Health Questionnaire 30-Day Re-eval Assessment 1. Little interest or pleasure in doing things: Not at all 2. Feeling down, depressed, or hopeless: Not at all 3. Trouble falling or staying asleep, or sleeping too much: Not at all 4. Feeling tired or having little energy: Not at all 5. Poor appetite or overeating: Not at all 6. Feeling bad about yourself -- or that you are a failure or have let yourself or your family down: Not at all 7. Trouble concentrating on things, such as reading the newspaper or watching television: Not at all 8. Moving or speaking so slowly that other people could have noticed. Or the opposite - being so fidgety or restless that you have been moving around a lot more than usual: Not at all 9. Thoughts that you would be better off , or of hurting yourself in some way: Not at all How difficult have these problems made it for you to do your work, take care of things at home, or get along with other people?: Not difficult at all Total Score: 0 Self-Efficacy 30-Day Re-eval Assessment We would like to know how confident you are in doing certain activities. Please select your confidence level for:: Select your confidence level for the following using the scale 1-10 where 1 is not at all confident and 10 is totally confident. Your score is the average of all 6 responses. Fatigue: How confident are you that you can keep the fatigue caused by your disease from interfering with the things you want to do? Select Number: 10 Physical Discomfort or Pain: How confident are you that you can keep the physical discomfort or pain of your disease from interfering with the things you want to do? Select Number: 10 Emotional Distress: How confident are you that you can keep the emotional distress caused by your disease from interfering with the things you want to do? Select Number: 10 Other Symptoms or Health Problems: How confident are you that you can keep other symptoms or health problems from interfering with the things you want to do? Select Number: 10 Different Tasks and Activities: How confident are you that you can do the different tasks and activities needed to manage your health condition so as to reduce your need to see a doctor? Select Number: 10 Medication: How confident are you that you can do things other than just taking medication to reduce how much your illness affects your everyday life? Select Number: 10 Total Score:: 10
[2020-01-08 13:20] VITALS: BP 118/58; BP 162/80; BMI 28.1
== END 2020-02-06 23:59 ==
LOC: CR 15:15
PROVIDERS: PCP Family Medicine; Referring Provider Internal Medicine Cardiovascular Disease; Visit Provider Internal Medicine Cardiovascular Disease
DX: I25.10 Atherosclerotic heart disease of native coronary artery without angina pectoris (principal); I25.2 Old myocardial infarction; Z95.5 Presence of coronary angioplasty implant and graft
CPT/HCPCS: 93798

== ENCOUNTER → 2020-03-16 07:22 | Outpatient (CLI) | payer OTHER, SELFPAY ==
[2019-12-08 13:38] VITALS: BMI 28.5
[2020-01-08 13:20] VITALS: BMI 28.1
[2020-03-16 07:51] LABS: Hematocrit 44.9 % (40-54); Hemoglobin 14.8 g/dL (13.0-16.5); Mean Platelet Vol. 10.9 fl (6.2-12.0); Platelet Count 241 K/mm3 (150-450)
[2020-03-16 08:19] LABS: AST(SGOT) 25 U/L (15-37); Alanine Aminotransfer ALT/SGPT 42 U/L (16-61); Albumin, Serum 3.8 g/dL (3.2-5.0); Alkaline Phosphatase 117 U/L (45-117); Anion Gap 7 (5-15); BUN 16 mg/dL (7-18); BUN/Creat Ratio 17.5 RATIO (10-20); Calcium,Total 8.6 mg/dL (8.5-10.1); Chloride 110 mmol/L (98-107); Cholesterol 106 mg/dL (200); Creatinine, Serum 0.91 mg/dL (0.70-1.30); EST Glomerular Filtration Rate 90 mL/min (>60); Est Glom Filt Rate - Afr Amer 109 mL/min (>60); Globulin 3.8 g/dL (2.2-4.2); Glucose 114 mg/dL (74-106); High Density Lipoprotein 39 mg/dL; Potassium 4.1 mmol/L (3.5-5.1); Protein, Total 7.6 g/dL (6.4-8.2); Sodium Level 141 mmol/L (136-145); Triglycerides 81 mg/dL; Very Low Density Lipoprotein 16 mg/dL (5-40)
== END ==
PROVIDERS: PCP Family Medicine; Referring Provider Family Medicine; Visit Provider Family Medicine
DX: I25.2 Old myocardial infarction (principal); E29.1 Testicular hypofunction
CPT/HCPCS: 36415; 80053; 80061; 84403; 85027

== ENCOUNTER 2021-01-17 06:33 | Outpatient (RCR) | payer OTHER, SELFPAY ==
[2020-01-08 13:20] VITALS: BMI 28.1
[2020-07-23 14:55] VITALS: BMI 27.4
[2021-01-17] MEDS: COVID-19 VACC, MRNA(PFIZER)/PF 30 MCG/0.3 ML SYRINGE IM (14:30)
[2021-02-07] MEDS: COVID-19 VACC, MRNA(PFIZER)/PF 30 MCG/0.3 ML SYRINGE IM (14:16)
== END 2021-04-15 23:59 ==
LOC: IMMUN 06:33
PROVIDERS: PCP Family Medicine; Referring Provider Family Medicine; Visit Provider Family Medicine
DX: Z23 Encounter for immunization (principal)
CPT/HCPCS: 0001A; 0002A; 91300

== ENCOUNTER 2021-08-05 08:31 | Emergency (ER) | payer OTHER, SELFPAY ==
[2020-01-08 13:20] VITALS: BMI 28.1
[2021-08-05 08:31] VITALS: BP 151/74; PULSE 82; RESP 16; TEMP 36.2; O2SAT 95; BMI 27.3
--- NOTE | 2021-08-05 11:09 | EDS_ITS ---
HPI History of Present Illness Chief Complaint: Nosebleed Informant: patient Onset/Context/Timing Onset: Today Context: Sudden Onset Timing: Continuous Quality: Bleeding Location: Right nares Worsened by: Nothing Relieved by: Pressure Narrative Narrative: Patient presents with epistaxis that began today. Patient states it began suddenly. Patient states the bleeding is coming from the right nares. Patient states he had a similar episode yesterday that resolved spontaneously. Patient denies any trauma or injury. Patient denies any headaches. Patient denies any fevers or chills. Patient denies any sinus congestion or pressure. Patient is on Plavix but denies taking any anticoagulants. [facility] Medical History (Updated 08/05/21 @ 11:[address] Luis Antonio Whitlock DO) Arteriosclerosis of coronary artery in patient with history of myocardial infarction (10/23/19) STEMI (ST elevation myocardial infarction) Home Medications aspirin 81 mg PO DAILY #90 tab 11/14/19 [Rx Last Taken Unknown] nitroglycerin 0.4 mg SUBLINGUAL Q5M PRN #25 tab.subl 11/14/19 [Rx Last Taken Unknown] ticagrelor 90 mg tablet 90 mg PO BID #180 tab 11/14/19 [Rx Last Taken Unknown] atorvastatin 80 mg tablet 80 mg PO QHS #90 tab 11/11/20 [Rx Last Taken Unknown] clopidogrel 75 mg tablet 75 mg PO .COMPLEX #90 tab 11/11/20 [Rx Last Taken Unknown] lisinopril 5 mg tablet 5 mg PO DAILY #90 tab 11/11/20 [Rx Last Taken Unknown] Allergy/AdvReac Type Severity Reaction Status Date / Time No Known Allergies Allergy Verified 07/23/20 14:57 Family History Mother Myocardial infarction Father Cancer throat Surgical History History of hernia repair History of open reduction and internal fixation (ORIF) procedure Stented coronary artery (11/13/19) Social History Smoking Status: Former smoker how long ago did patient quit smokin years ago alcohol intake: never substance use type: does not use caffeine: No ROS ROS ED Constitutional Constitutional ED: Denies chills or fever(s) Eyes Eyes: Denies blurry vision or change in vision ENT ENT ED: Reports epistaxis; Denies ear pain or sore throat Cardiovascular Cardiovascular: Denies chest pain or palpitations Respiratory/Chest Respiratory/Chest: Denies cough or dyspnea Gastrointestinal Gastrointestinal: Denies nausea or vomiting Genitourinary Genitourinary ED: Denies dysuria or hematuria Musculoskeletal Musculoskeletal: Denies back pain or neck pain Integumentary Denies abscess or rash Neurologic Neurologic: Denies headache(s) or weakness Allergic/Immunologic Allergic/Immunologic ED: Denies mouth swelling or urticaria EXAM Physical Exam Const Vital Signs: 08/05/21 08:31 Temperature 97.2 F L Temperature Source Temporal Pulse Rate 82 Respiratory Rate 16 Blood Pressure 151/74 H Blood Pressure Mean 99 Pulse Ox 95 Oxygen Delivery Method Room Air Positive well nourished and well developed General Appearance ED: well developed HEENT Reports moist mucous membranes HEENT Narrative: There is some bleeding from the right anterior nasal septum. There is no septal hematoma or septal deviation. There are no foreign bodies. Eyes PERRL and EOMs intact bilaterally Neck supple and no JVD Extremity normal to inspection Neuro oriented x3, CN's II-XII intact bilaterally and no sensory deficits noted Sensorium / Orientation: alert Motor Exam: strength 5/5 throughout Psych mental status grossly normal MDM MDM MDM Narrative Medical decision making narrative: Qasim solution was applied to the right nares. Bleeding slowed down. A 5 cm anterior rapid Rhino was placed in the right nares. 5 cc of air was placed in the balloon. There is no further bleeding noted. Patient was instructed to follow-up with his primary care physician or ENT in 1 to 2 days for removal of the packing. Patient understood and was agreeable with the plan. All questions were answered. Discharge Plan Triage Chief Complaint: Nosebleed ED Provider: Luis Antonio Whitlock Dx/Rx/DC Orders Clinical Impression: Acute anterior epistaxis Instructions: ED Epistaxis (Adult) Prescriptions: No Action nitroglycerin 0.4 MG tablet, sublingual 0.4 mg sublingual Q5M PRN (Reason: Cardiac/Chest Pain) Qty: 25 RF: 3 aspirin 81 MG tablet 81 mg PO DAILY Qty: 90 RF: 3 ticagrelor 90 mg tablet 90 mg PO BID Qty: 180 RF: 3 clopidogrel [Plavix] 75 mg tablet 75 mg PO .COMPLEX Qty: 90 RF: 3 lisinopril 5 mg tablet 5 mg PO DAILY Qty: 90 RF: 3 atorvastatin 80 mg tablet 80 mg PO QHS Qty: 90 RF: 3 Primary Care Provider: Jerson Candelario Referrals: Jerson Candelario MD [Primary Care Provider] - 2 Days Luis Antonio Rojas MD [STAFF PHYSICIAN] - 2 Days Disposition Disposition: Home, Self Care
[2021-08-05] MEDS: Mixture 30 ML Bottle TOPICAL (11:21)
[2021-08-05 11:26] VITALS: BP 111/75; PULSE 57; RESP 18; O2SAT 95
== END 2021-08-05 11:27 | disposition home or self-care (01) ==
PROVIDERS: Emergency Provider Emergency Medicine; PCP Family Medicine
DX: R04.0 Epistaxis (principal); I25.2 Old myocardial infarction; I25.10 Atherosclerotic heart disease of native coronary artery without angina pectoris; Z79.82 Long term (current) use of aspirin; Z79.899 Other long term (current) drug therapy; Z87.891 Personal history of nicotine dependence
CPT/HCPCS: 30901; 99282

== ENCOUNTER 2021-08-06 04:42 | Emergency (ER) | payer OTHER, SELFPAY ==
[2020-01-08 13:20] VITALS: BMI 28.1
[2021-08-06 04:43] VITALS: BP 158/85; PULSE 80; RESP 16; TEMP 37.1; O2SAT 95; BMI 29.2
[2021-08-06] MEDS: Lidocaine 2% (20 ml mdv) 20 ML Vial OPERA.SITE (05:19)
--- NOTE | 2021-08-06 05:21 | EX.ED.DYSGE1 ---
HPI History of Present Illness Chief Complaint: Other, Pain/Inj Informant: patient and spouse/S.O. Narrative Narrative: Patient presents with discomfort in his right naris. He was seen here just in the past day for a right nosebleed. He is on Plavix and aspirin. A 5-1/2 cm balloon was placed. This did stop the bleeding. Patient has not had any rebleeding. But he feels a lot of pressure in that area. No trouble breathing. No chest pain or neck pain. [facility] Medical History (Updated 08/06/21 @ 05:[address] Felipe Mcclellan MD) Arteriosclerosis of coronary artery in patient with history of myocardial infarction (10/23/19) STEMI (ST elevation myocardial infarction) Home Medications aspirin 81 mg PO DAILY #90 tab 11/14/19 [Rx Last Taken Unknown] nitroglycerin 0.4 mg SUBLINGUAL Q5M PRN #25 tab.subl 11/14/19 [Rx Last Taken Unknown] atorvastatin 80 mg tablet 80 mg PO QHS #90 tab 11/11/20 [Rx Last Taken Unknown] clopidogrel 75 mg tablet 75 mg PO .COMPLEX #90 tab 11/11/20 [Rx Last Taken Unknown] lisinopril 5 mg tablet 5 mg PO DAILY #90 tab 11/11/20 [Rx Last Taken Unknown] tramadol 50 mg PO Q8H PRN 2 Days #7 tab 08/06/21 [Rx Last Taken Unknown] Allergy/AdvReac Type Severity Reaction Status Date / Time No Known Allergies Allergy Verified 08/06/21 04:45 Family History Mother Myocardial infarction Father Cancer throat Surgical History History of hernia repair History of open reduction and internal fixation (ORIF) procedure Stented coronary artery (11/13/19) Social History Smoking Status: Former smoker how long ago did patient quit smokin years ago alcohol intake: never substance use type: does not use caffeine: No ROS ROS ED Constitutional Constitutional ED: Denies fever(s) Eyes Eyes: Reports other Details: When the pain is bad he does have some tearing of his right eye on occasion. ; Denies blurry vision, change in vision or diplopia ENT ENT ED: Reports other Details: See history of present illness. Cardiovascular Cardiovascular: Denies chest pain Respiratory/Chest Respiratory/Chest: Denies dyspnea Gastrointestinal Gastrointestinal: Denies nausea or vomiting Integumentary Denies rash Neurologic Neurologic: Denies headache(s) Allergic/Immunologic Allergic/Immunologic ED: Denies mouth swelling EXAM Physical Exam Const Vital Signs: 08/06/21 04:43 08/06/21 05:25 Temperature 98.8 F Temperature Source Temporal Pulse Rate 80 Respiratory Rate 16 Respiratory Effort Normal Blood Pressure 158/85 H Blood Pressure Mean 109 Pulse Ox 95 Oxygen Delivery Method Room Air Positive well nourished and well developed Constitutional Narrative: Patient is sitting quietly in bed. He looks comfortable. General Appearance ED: well developed and NAD HEENT HEENT Narrative: No active bleeding. Oropharynx shows no blood or clot. The balloon at this time does seem a little bit firm. There is no discharge. No sinus tenderness. Eyes PERRL and EOMs intact bilaterally Resp normal respiratory effort Neuro Sensorium / Orientation: alert Psych mental status grossly normal Skin no rashes or lesions noted MDM MDM MDM Narrative Medical decision making narrative: I explained that I would prefer not to remove this packing. I think that would markedly increase his risk of rebleeding. We did take a little bit of air out of it. This did help him. I am letting this rest to see how he feels. I explained that sometimes when his packing goes in, it will warm up a fair amount Patient is feeling much better. When we deflated the balloon just slightly he got a little bit of pink drainage. But no active bleeding. We placed a little lidocaine in the area. It feels much better now. We discussed how to care for this. He has follow-up arranged. I will give him a few tramadol to help him sleep at night. I did do online prescribing report that has absolutely no controlled substances prescribed. Discharge Plan Triage Chief Complaint: Other, Pain/Inj ED Provider: Felipe Mcclellan Dx/Rx/DC Orders Clinical Impression: Right-sided epistaxis, Nasal pain Instructions: ED Nasal Packing Removable Anterior Prescriptions: New tramadol 50 mg tablet 50 mg PO Q8H PRN (Reason: pain) 2 Days Qty: 7 RF: 0 No Action nitroglycerin 0.4 MG tablet, sublingual 0.4 mg sublingual Q5M PRN (Reason: Cardiac/Chest Pain) Qty: 25 RF: 3 aspirin 81 MG tablet 81 mg PO DAILY Qty: 90 RF: 3 clopidogrel [Plavix] 75 mg tablet 75 mg PO .COMPLEX Qty: 90 RF: 3 lisinopril 5 mg tablet 5 mg PO DAILY Qty: 90 RF: 3 atorvastatin 80 mg tablet 80 mg PO QHS Qty: 90 RF: 3 Primary Care Provider: Jerson Candelario Referrals: Jerson Candelario MD [Primary Care Provider] - Luis Antonio Rojas MD [STAFF PHYSICIAN] - 2 Days Disposition Disposition: Home, Self Care
== END 2021-08-06 06:05 | disposition home or self-care (01) ==
PROVIDERS: Emergency Provider Emergency Medicine; PCP Family Medicine
DX: R04.0 Epistaxis (principal); J34.89 Other specified disorders of nose and nasal sinuses; I25.2 Old myocardial infarction; I25.10 Atherosclerotic heart disease of native coronary artery without angina pectoris; Z79.02 Long term (current) use of antithrombotics/antiplatelets; Z79.82 Long term (current) use of aspirin; Z79.899 Other long term (current) drug therapy; Z87.891 Personal history of nicotine dependence
CPT/HCPCS: 30901; 99282

== ENCOUNTER → 2021-08-16 | Outpatient (CLI) | payer OTHER, SELFPAY ==
[2020-01-08 13:20] VITALS: BMI 28.1
== END | disposition home or self-care (01) ==
PROVIDERS: PCP Family Medicine; Referring Provider Nurse Practitioner Family; Visit Provider Nurse Practitioner Family
DX: U07.1 COVID-19 (principal); R09.81 Nasal congestion; R50.9 Fever, unspecified
CPT/HCPCS: 87635; U0005; U0003

== ENCOUNTER → 2021-10-03 06:00 | Outpatient (CLI) | payer OTHER, SELFPAY ==
[2020-01-08 13:20] VITALS: BMI 28.1
[2021-10-03 08:03] LABS: Hematocrit 42.3 % (40-54); Mean Corp Hgb Conc 33.1 g/dL (32-36); Mean Corpuscular Hgb 29.1 pg (27.0-32.0); Mean Corpuscular Volume 87.9 fL (80-94); Mean Platelet Vol. 11.2 fl (6.2-12.0); Platelet Count 290 K/mm3 (150-450); RBC Distribution Width CV 13.6 % (11.6-14.6); RBC Distribution Width SD 44.4 fl (35.1-43.9); Red Blood Count 4.81 M/mm3 (4.6-6.2); White Blood Count 8.3 K/mm3 (4.4-11.0)
[2021-10-03 08:29] LABS: ALB/GLOB Ratio 0.8 RATIO (0.9-2.4); AST(SGOT) 19 U/L (15-37); Alanine Aminotransfer ALT/SGPT 28 U/L (16-61); Albumin, Serum 3.2 g/dL (3.2-5.0); Alkaline Phosphatase 95 U/L (45-117); Anion Gap 6 (5-15); BUN 13 mg/dL (7-18); BUN/Creat Ratio 14.3 RATIO (10-20); Calcium,Total 8.5 mg/dL (8.5-10.1); Chloride 108 mmol/L (98-107); Cholesterol 138 mg/dL (200); Creatinine, Serum 0.91 mg/dL (0.70-1.30); EST Glomerular Filtration Rate 90 mL/min (>60); Est Glom Filt Rate - Afr Amer 109 mL/min (>60); Globulin 4.2 g/dL (2.2-4.2); Glucose 134 mg/dL (74-106); High Density Lipoprotein 40 mg/dL; PSA,Total - Annual Screen 0.65 ng/mL (0.00-4.00); Potassium 4.2 mmol/L (3.5-5.1); Protein, Total 7.4 g/dL (6.4-8.2); Sodium Level 141 mmol/L (136-145); Triglycerides 109 mg/dL; Very Low Density Lipoprotein 22 mg/dL (5-40)
== END ==
PROVIDERS: PCP Family Medicine; Referring Provider Family Medicine; Visit Provider Family Medicine
DX: I21.3 ST elevation (STEMI) myocardial infarction of unspecified site (principal); Z12.5 Encounter for screening for malignant neoplasm of prostate
CPT/HCPCS: 36415; 80053; 80061; 84153; 85027; G0103

== ENCOUNTER 2022-08-07 05:50 | Day surgery (SDC) | payer OTHER, SELFPAY ==
[2020-01-08 13:20] VITALS: BMI 28.1
[2022-08-07] VITALS (8 sets, daily range): BP systolic 102–133; BP diastolic 48–84; PULSE 56–67; RESP 18–20; TEMP 36.8–37.5; O2SAT 93–100; BMI 26.2
[2022-08-07] MEDS: Lactated Ringers 1,000 ML 15 ML IV (06:15)
--- NOTE | 2022-08-07 06:22 | PCM.HP.STD ---
[facility] - General General Date of Service: 08/07/22 Chief Complaint: Screening for intestinal cancer [facility] Narrative SABAS HENSON, is a 61 M who presents for screening colonoscopy today. He had one 10 years ago. He denies any acute symptoms. No abdominal pain. No bright red blood per rectum or melena. He did have a myocardial infarction October 2019 had a coronary stent placed but is only on low-dose aspirin currently. He has had a previous history of right lower extremity DVT but that was related to do a job occupation change with prolonged sitting and has had no consequence since. He denies family history of colon polyps or colon cancer [facility] Medical History (Updated 08/05/22 @ 11:44 by Allison Camara) Arteriosclerosis of coronary artery in patient with history of myocardial infarction (10/23/19) Cardiology follow-up encounter Congestion of nasal sinus COVID-19 virus detected (08/16/21) DVT (deep venous thrombosis) Former smoker High cholesterol History of echocardiogram History of edema History of ST elevation myocardial infarction (STEMI) (10/23/19) Hyperlipidemia Hypertension Hypogonadism in male Wears glasses Home Medications aspirin 81 mg tablet,delayed release 81 mg PO DAILY #90 tabs 11/14/19 [Rx Last Taken Unknown] nitroglycerin 0.4 mg sublingual tablet 0.4 mg sublingual Q5M PRN Cardiac/Chest Pain ##25 11/14/19 [Rx Last Taken Unknown] atorvastatin 80 mg tablet 80 mg PO QHS #90 tabs 01/26/22 [Rx Last Taken Unknown] lisinopril 5 mg tablet 5 mg PO DAILY #90 tabs 01/27/22 [Rx Last Taken Unknown] Allergy/AdvReac Type Severity Reaction Status Date / Time No Known Allergies Allergy Verified 08/07/22 06:23 Family History Mother Myocardial infarction Father Cancer throat Surgical History History of cardiac catheterization History of colonoscopy History of hernia repair History of open reduction and internal fixation (ORIF) procedure History of open reduction and internal fixation (ORIF) procedure Stented coronary artery (11/13/19) Social History Smoking Status: Former smoker how long ago did patient quit smokin years ago alcohol intake: never substance use type: does not use caffeine: No ROS Constitutional Constitutional: Reports systems reviewed and no addt'l complaints, except as documented Cardiovascular Cardiovascular: Denies chest pain Respiratory/Chest Respiratory/Chest: Denies shortness of breath at rest Gastrointestinal Gastrointestinal: Denies abdominal pain, change in bowel habits, hematochezia or melena Physical Exam Const alert, oriented x3 and no apparent distress General Appearance: cooperative and comfortable Eyes General Eye: normal appearance of both eyes Neck General: normal visual inspection Chest inspection of chest normal Resp Effort and Inspection: able to speak in complete sentences and symmetric chest movement Auscultation: clear to auscultation bilaterally Cardio regular rate and regular rhythm GI soft to palpation, non-tender and non-distended Extremity no calf tenderness Neuro oriented x3 Psych thought process normal Assessment & Plan Assessment/Plan (1) Encounter for screening for malignant neoplasm of colon: PLAN: The patient presents via open access today for screening colonoscopy with possible biopsy or polypectomy as indicated. He is aware of the technique, benefit, risk, alternatives. He has had an opportunity to ask and have questions answered. We will proceed as noted. Lizandro Staley M.D., F.A.C.S.
[2022-08-07] MEDS: Midazolam 5 MG/ML Syringe (06:59)
--- NOTE | 2022-08-07 07:16 | OP.COLON_ITS ---
Patient Name: Colby Luna Procedure Date: 08/07/2022 6:52 AM Date of : 1960 Age: 61 Procedure: Colonoscopy Indications: Screening for colorectal malignant neoplasm Providers: Lizandro Staley MD Medicines: Midazolam 3.5 mg IV, Meperidine 100 mg IV Patient Profile: Last Colonoscopy: 10 years ago. Complications: No immediate complications. Procedure: Pre-Anesthesia Assessment: - Prior to the procedure, a History and Physical was performed, and patient medications and allergies were reviewed. The patient's tolerance of previous anesthesia was also reviewed. The risks and benefits of the procedure and the sedation options and risks were discussed with the patient. All questions were answered, and informed consent was obtained. Prior Anticoagulants: The patient has taken no previous anticoagulant or antiplatelet agents. ASA Grade Assessment: II - A patient with mild systemic disease. After reviewing the risks and benefits, the patient was deemed in satisfactory condition to undergo the procedure. After I obtained informed consent, the scope was passed under direct vision. Throughout the procedure, the patient's blood pressure, pulse, and oxygen saturations were monitored continuously. The was introduced through the anus and advanced to the cecum, identified by appendiceal orifice and ileocecal valve. The colonoscopy was performed without difficulty. The patient tolerated the procedure well. The quality of the bowel preparation was good. The ileocecal valve and the appendiceal orifice were photographed. Moderate Sedation: Moderate (conscious) sedation was personally administered by the endoscopist. The following parameters were monitored: oxygen saturation, heart rate, blood pressure, and response to care. Total physician intraservice time was 15 minutes. Scope In: 7:01:40 AM Scope Out: 7:12:11 AM Total Procedure Duration Time 0 hours 10 minutes 31 seconds Findings: Hemorrhoids were found on perianal exam. The colon (entire examined portion) appeared normal. Impression: - Hemorrhoids found on perianal exam. - The entire examined colon is normal. - No specimens collected. Recommendation: - Discharge patient to home. - Resume previous diet. - Continue present medications. - Repeat colonoscopy in 10 years for screening purposes. Procedure Code(s): --- Professional --- 07578, Colonoscopy, flexible; diagnostic, including collection of specimen(s) by brushing or washing, when performed (separate procedure) 30501, 59, Moderate sedation services provided by the same physician or other qualified health home child care provider performing the diagnostic or therapeutic service that the sedation supports, requiring the presence of an independent trained observer to assist in the monitoring of the patient's level of consciousness and physiological status; initial 15 minutes of intraservice time, patient age 5 years or older Diagnosis Code(s): --- Professional --- Z12.11, Encounter for screening for malignant neoplasm of colon K64.9, Unspecified hemorrhoids CPT copyright 2017 [employer]. All rights reserved. The codes documented in this report are preliminary and upon groundsman review may be revised to meet current compliance requirements. Lizandro Staley MD 08/07/2022 7:15:35 AM This report has been signed electronically. Number of Addenda: 0 Note Initiated On: 08/07/2022 6:52 AM
--- NOTE | 2022-08-07 07:17 | OP.CCLET_ITS ---
08/07/2022 Jerson Candelario [address] [place] [address] Re : Colonoscopy procedure for Colby Sextoner Dear Dr. Candelario This procedure was performed on Sunday, August 07, 2022. My impressions and recommendations are as follows: Impressions : - Hemorrhoids found on perianal exam. - The entire examined colon is normal. - No specimens collected. Recommendations : - Discharge patient to home. - Resume previous diet. - Continue present medications. - Repeat colonoscopy in 10 years for screening purposes. My findings are described in the full procedure note, which is enclosed. If I can be of further assistance, please feel free to contact me at Doctor phone number(s): Work: . Sincerely, Lizandro Staley MD 08/07/2022 7:15:35 AM This report has been signed electronically.
== END 2022-08-07 08:03 | disposition home or self-care (01) ==
LOC: EN 05:51 → AC 05:53
PROVIDERS: PCP Family Medicine; Referring Provider Family Medicine; Visit Provider Surgery
PROC: 0DJD8ZZ Inspection of Lower Intestinal Tract, Via Natural or Artificial Opening Endoscopic (ICD-10-PCS; CPT 45378; principal; 2022-08-07 06:55)
DX: Z12.11 Encounter for screening for malignant neoplasm of colon (principal); K64.9 Unspecified hemorrhoids; Z86.16 Personal history of COVID-19; Z86.718 Personal history of other venous thrombosis and embolism; E78.00 Pure hypercholesterolemia, unspecified; I25.10 Atherosclerotic heart disease of native coronary artery without angina pectoris; I25.2 Old myocardial infarction; Z87.891 Personal history of nicotine dependence; I10 Essential (primary) hypertension; Z79.82 Long term (current) use of aspirin; Z79.899 Other long term (current) drug therapy
CPT/HCPCS: 45378; 99152; 99153; J7120

== ENCOUNTER 2022-10-02 07:03 | Outpatient (CLI) | payer OTHER, SELFPAY ==
[2020-01-08 13:20] VITALS: BMI 28.1
[2022-10-02 08:53] LABS: ALB/GLOB Ratio 0.9 RATIO (0.9-2.4); AST(SGOT) 20 U/L (15-37); Alanine Aminotransfer ALT/SGPT 30 U/L (16-61); Albumin, Serum 3.6 g/dL (3.2-5.0); Alkaline Phosphatase 107 U/L (45-117); Anion Gap 6 (5-15); BUN 16 mg/dL (7-18); Calcium,Total 8.9 mg/dL (8.5-10.1); Chloride 107 mmol/L (98-107); Cholesterol 160 mg/dL (200); EST Glomerular Filtration Rate 80 mL/min (>60); Est Glom Filt Rate - Afr Amer 97 mL/min (>60); Glucose 123 mg/dL (74-106); High Density Lipoprotein 46 mg/dL; PSA,Total- Diagnostic 0.54 ng/mL (0.0-4.0); Potassium 4.4 mmol/L (3.5-5.1); Protein, Total 7.6 g/dL (6.4-8.2); Sodium Level 140 mmol/L (136-145); Triglycerides 162 mg/dL; Very Low Density Lipoprotein 32 mg/dL (5-40)
== END 2022-10-02 23:59 | disposition home or self-care (01) ==
LOC: LAB 07:04
PROVIDERS: PCP Family Medicine; Referring Provider Family Medicine; Visit Provider Family Medicine
DX: I25.10 Atherosclerotic heart disease of native coronary artery without angina pectoris (principal); Z12.5 Encounter for screening for malignant neoplasm of prostate
CPT/HCPCS: 36415; 80053; 80061; 84153

== ENCOUNTER → 2023-08-28 | Outpatient (CLI) | payer OTHER, SELFPAY ==
[2020-01-08 13:20] VITALS: BMI 28.1
[2023-08-28 09:01] LABS: ALB/GLOB Ratio 0.9 RATIO (0.9-2.4); AST(SGOT) 39 U/L (15-37); Alanine Aminotransfer ALT/SGPT 50 U/L (16-61); Albumin, Serum 3.6 g/dL (3.2-5.0); Alkaline Phosphatase 117 U/L (45-117); Anion Gap 7 (5-15); BUN 20 mg/dL (7-18); BUN/Creat Ratio 21.3 RATIO (10-20); Chloride 103 mmol/L (98-107); Cholesterol 127 mg/dL (200); Creatinine, Serum 0.94 mg/dL (0.70-1.30); EST Glomerular Filtration Rate 86 mL/min (>60); Est Glom Filt Rate - Afr Amer 104 mL/min (>60); Globulin 4.2 g/dL (2.2-4.2); Glucose 121 mg/dL (74-106); High Density Lipoprotein 45 mg/dL; Potassium 4.1 mmol/L (3.5-5.1); Protein, Total 7.8 g/dL (6.4-8.2); Sodium Level 139 mmol/L (136-145); Triglycerides 78 mg/dL; Very Low Density Lipoprotein 16 mg/dL (5-40)
== END | disposition home or self-care (01) ==
LOC: LAB 07:01
PROVIDERS: PCP Family Medicine; Visit Provider Internal Medicine Cardiovascular Disease
DX: E78.5 Hyperlipidemia, unspecified (principal); I10 Essential (primary) hypertension; I25.10 Atherosclerotic heart disease of native coronary artery without angina pectoris
CPT/HCPCS: 36415; 80053; 80061

== ENCOUNTER → 2023-09-02 | Outpatient (CLI) | payer OTHER, SELFPAY ==
[2020-01-08 13:20] VITALS: BMI 28.1
--- NOTE | 2023-09-02 14:39 | ECHOD_ITS ---
Reason For Study: HLD, HTN, ASHD, STENT Procedure This was a 2D Doppler, Color Flow transthoracic echocardiogram. Exam performed in department. Left Ventricle Normal size and thickness. The left ventricular ejection fraction is 65 %. Normal diastology for age. Right Ventricle Mildly dilated right ventricle. Normal systolic function. Atria There is mild biatrial dilatation. Mitral Valve Trivial mitral valve insufficiency. Tricuspid Valve Trivial tricuspid valve insufficiency. Normal pulmonary artery pressure. Aortic Valve Trisinus/trileaflet aortic valve. Pulmonic Valve The pulmonic valve is not well visualized. Great Vessels Normal sized aortic root. Pericardium/Pleural No pericardial effusion. MMode/2D Measurements & Calculations LVIDd: 4.8 cm IVSd: 1.0 cm Ao root diam: 3.5 cm LVIDs: 3.0 cm LVPWd: 1.0 cm RVDd: 3.6 cm FS: 37.7 % LAV(MOD-bp): 41.5 ml LVAd ap4: 28.8 cm2 LVAd ap2: 22.8 cm2 LAV(MOD-bp) Indexed: 20.3 ml/m2 LVLd ap4: 8.3 cm LVLd ap2: 7.8 cm LAV(MOD-sp2): 41.4 ml EDV(MOD-sp4): 85.2 ml EDV(MOD-sp2): 60.8 ml LAV(MOD-sp4): 41.8 ml EDV(sp4-el): 84.6 ml EDV(sp2-el): 56.3 ml LVAs ap4: 13.1 cm2 LVAs ap2: 11.5 cm2 LVLs ap4: 6.5 cm LVLs ap2: 6.4 cm ESV(MOD-sp4): 23.2 ml ESV(MOD-sp2): 18.5 ml ESV(sp4-el): 22.3 ml ESV(sp2-el): 17.6 ml EF(MOD-sp4): 72.7 % EF(MOD-sp2): 69.7 % EF(sp4-el): 73.7 % SV(MOD-sp4): 62.0 ml SV(MOD-sp2): 42.4 ml SV(sp4-el): 62.3 ml LA dimension(2D): 4.4 cm LA A4 area: 15.8 cm2 RA A4 area: 16.2 cm2 TAPSE: 2.3 cm Time Measurements MV dec time: 0.19 sec Doppler Measurements & Calculations MV E max jose: 74.1 cm/sec Lat Peak E' Jose: 12.4 cm/sec Med Peak E' Jose: 11.3 cm/sec MV A max jose: 81.7 cm/sec E/E' lat: 6.0 E/E' med: 6.6 MV E/A: 0.91 MV V2 max: 85.7 cm/sec MV P1/2t max jose: 83.0 cm/sec Ao V2 max: 139.5 cm/sec MV max P.9 mmHg MV P1/2t: 63.1 msec Ao max P.8 mmHg MV V2 mean: 40.2 cm/sec MV dec slope: 385.7 cm/sec2 Ao V2 mean: 88.7 cm/sec MV mean P.77 mmHg Ao mean P.7 mmHg MV V2 VTI: 22.5 cm MVA(P1/2t): 3.5 cm2 Ao V2 VTI: 30.9 cm AV (velocity ratio): 0.93 LV V1 max: 137.9 cm/sec PA V2 max: 157.7 cm/sec TR max jose: 179.1 cm/sec LV V1 max P.6 mmHg PA V2 mean: 96.1 cm/sec TR max P.8 mmHg LV V1 mean P.5 mmHg LV V1 mean: 87.5 cm/sec LV V1 VTI: 28.9 cm ECHO/Echo Complete Interpretation Summary The left ventricular ejection fraction is 65 %. Mildly dilated right ventricle. Ordering Physician: Malia Hensley Referring Physician: Presley Candelario Performed By: Sharlene Carmen, JOCELYNCS, RVT
== END | disposition home or self-care (01) ==
LOC: CVS 14:38
PROVIDERS: PCP Family Medicine; Referring Provider Internal Medicine Cardiovascular Disease; Visit Provider Internal Medicine Cardiovascular Disease
DX: E78.5 Hyperlipidemia, unspecified (principal); I10 Essential (primary) hypertension; I25.10 Atherosclerotic heart disease of native coronary artery without angina pectoris; Z95.5 Presence of coronary angioplasty implant and graft
CPT/HCPCS: 93306

== ENCOUNTER → 2024-03-16 | Outpatient (CLI) | payer OTHER, SELFPAY ==
[2020-01-08 13:20] VITALS: BMI 28.1
[2024-03-16 08:10] LABS: ALB/GLOB Ratio 0.9 RATIO (0.9-2.4); AST(SGOT) 27 U/L (15-37); Alanine Aminotransfer ALT/SGPT 37 U/L (16-61); Albumin, Serum 3.6 g/dL (3.2-5.0); Alkaline Phosphatase 101 U/L (45-117); Anion Gap 5 (5-15); BUN 17 mg/dL (7-18); CPK Total, Creatine Kinase 103 U/L (39-308); Calcium,Total 8.9 mg/dL (8.5-10.1); Chloride 106 mmol/L (98-107); Cholesterol 146 mg/dL (200); EST Glomerular Filtration Rate 80 mL/min (>60); Est Glom Filt Rate - Afr Amer 97 mL/min (>60); Glucose 154 mg/dL (74-106); High Density Lipoprotein 45 mg/dL; Potassium 3.9 mmol/L (3.5-5.1); Protein, Total 7.6 g/dL (6.4-8.2); Sodium Level 137 mmol/L (136-145); Triglycerides 92 mg/dL; Very Low Density Lipoprotein 18 mg/dL (5-40)
[2024-03-16 10:08] LABS: PSA,Total - Annual Screen 0.47 ng/mL (0.00-4.00)
== END | disposition home or self-care (01) ==
LOC: LAB 06:18
PROVIDERS: PCP Family Medicine; Referring Provider Internal Medicine Cardiovascular Disease; Visit Provider Internal Medicine Cardiovascular Disease
DX: I25.10 Atherosclerotic heart disease of native coronary artery without angina pectoris (principal); I10 Essential (primary) hypertension; Z12.5 Encounter for screening for malignant neoplasm of prostate; E78.00 Pure hypercholesterolemia, unspecified
CPT/HCPCS: 36415; 80053; 80061; 82550; 84153; G0103

== ENCOUNTER → 2024-11-07 | Outpatient (CLI) | payer OTHER, SELFPAY ==
[2020-01-08 13:20] VITALS: BMI 28.1
--- NOTE | 2024-11-07 09:39 | STRESSREP_ITS ---
Stress Test Report Date: 11/07/2024 Procedure: Exercise tolerance test/imaging study Indications: Coronary artery disease Consent: Per the patient Procedure: The patient exercised on a Rashi protocol for 10 minutes achieving a peak heart rate of 151 bpm (97% predicted maximal heart rate) with a peak blood pressure 180/78 mmHg and a peak MET capacity of 13.3 METs. The baseline ECG demonstrated sinus rhythm. The peak exercise ECG demonstrated no ischemic changes. There were no cardiac dysrhythmias pretest, during exercise, or recovery. The functional capacity was considered very good. There was no complaint of chest discomfort during exercise or recovery. The examination was discontinued secondary to target heart rate being achieved. The patient was injected with 11.8 mCi of technetium 99m Cardiolite and subsequently rest SPECT Cardiolite nuclear imaging was obtained in the horizontal long, vertical long, and short axis views. Post-exercise, the patient was injected with 34.4 mCi of technetium 99m Cardiolite and subsequently stress SPECT Cardiolite nuclear imaging was obtained in the horizontal long, vertical long, and short axis views. A gated Cardiolite study at peak stress was obtained. Rest and stress SPECT Cardiolite nuclear imaging status post realignment, normalization, and attenuation correction, demonstrates the appearance of relative uniform tracer uptake and myocardial perfusion appearing within normal limits. There is end systolic thickening and brightening. The gated Cardiolite study demonstrates myocardial thickening and inward wall motion. The reported LVEF is 70%. Impression: 1. Technically adequate (percent predicted maximal heart rate greater than 85%) exercise tolerance test 2. Peak exercise ECG with no ischemic changes 3. There were no cardiac dysrhythmias pretest, during exercise, or recovery 4. Rest and stress SPECT Cardiolite nuclear imaging demonstrate relative uniform tracer uptake and myocardial perfusion appearing within normal limits. 5. The gated Cardiolite study reports an LVEF of 70%. This note was generated with [employer] software. It may contain incorrect words, spelling, and punctuation that were not noted in checking the note before signing.
== END | disposition home or self-care (01) ==
LOC: CVS 06:49
PROVIDERS: PCP Family Medicine; Referring Provider Internal Medicine Cardiovascular Disease; Visit Provider Internal Medicine Cardiovascular Disease
DX: I25.10 Atherosclerotic heart disease of native coronary artery without angina pectoris (principal); E78.5 Hyperlipidemia, unspecified; I25.2 Old myocardial infarction; I10 Essential (primary) hypertension; Z95.5 Presence of coronary angioplasty implant and graft
CPT/HCPCS: 78452; 93017; A9500; A4216

== ENCOUNTER → 2024-12-21 | Outpatient (CLI) | payer MEDICARE, SELFPAY ==
[2020-01-08 13:20] VITALS: BMI 28.1
[2024-12-21 09:02] LABS: ALB/GLOB Ratio 0.8 RATIO (0.9-2.4); AST(SGOT) 33 U/L (15-37); Alanine Aminotransfer ALT/SGPT 41 U/L (16-61); Albumin, Serum 3.5 g/dL (3.2-5.0); Alkaline Phosphatase 121 U/L (45-117); Anion Gap 6 (5-15); BUN 16 mg/dL (7-18); BUN/Creat Ratio 16.2 RATIO (10-20); CPK Total, Creatine Kinase 87 U/L (39-308); Calcium,Total 9.8 mg/dL (8.5-10.1); Chloride 106 mmol/L (98-107); Cholesterol 158 mg/dL (200); Creatinine, Serum 0.99 mg/dL (0.70-1.30); EST Glomerular Filtration Rate 81 mL/min (>60); Est Glom Filt Rate - Afr Amer 98 mL/min (>60); Globulin 4.2 g/dL (2.2-4.2); Glucose 147 mg/dL (74-106); High Density Lipoprotein 48 mg/dL; Potassium 4.1 mmol/L (3.5-5.1); Protein, Total 7.7 g/dL (6.4-8.2); Sodium Level 137 mmol/L (136-145); Triglycerides 138 mg/dL; Very Low Density Lipoprotein 28 mg/dL (5-40)
== END | disposition home or self-care (01) ==
PROVIDERS: PCP Family Medicine; Referring Provider Internal Medicine Cardiovascular Disease; Visit Provider Internal Medicine Cardiovascular Disease
DX: I25.10 Atherosclerotic heart disease of native coronary artery without angina pectoris (principal); I25.2 Old myocardial infarction; I10 Essential (primary) hypertension; Z95.5 Presence of coronary angioplasty implant and graft; E78.5 Hyperlipidemia, unspecified
CPT/HCPCS: 36415; 80053; 80061; 82550

== ENCOUNTER → 2025-04-12 | Outpatient (CLI) | payer MEDICARE, SELFPAY ==
[2020-01-08 13:20] VITALS: BMI 28.1
--- NOTE | 2025-04-12 12:41 | ECHOD_ITS ---
Reason For Study Reason For Study: CAD/ASHD Procedure This was a 2D Doppler, Color Flow transthoracic echocardiogram. Exam performed in department. Left Ventricle Normal LV size. Mild concentric left ventricular hypertrophy. The left ventricular ejection fraction is 65 %. Stage 1 diastolic dysfunction. Right Ventricle Normal right ventricle. Atria The left atrium is mildly enlarged. Normal right atrium. Mitral Valve Normal mitral valve. Tricuspid Valve Trivial tricuspid valve insufficiency. Normal pulmonary artery pressure. Aortic Valve Trisinus/trileaflet aortic valve. Pulmonic Valve The pulmonic valve is not well visualized. Great Vessels Normal sized aortic root. Pericardium/Pleural No pericardial effusion. MMode/2D Measurements & Calculations LVIDd: 5.2 cm IVSd: 1.2 cm LA dimension: 4.2 cm LVIDs: 3.2 cm LVPWd: 0.99 cm FS: 37.2 % LAV(MOD-bp): 41.0 ml LVAd ap4: 27.3 cm2 SV(MOD-sp4): 48.2 ml LAV(MOD-bp) Indexed: 20.1 ml/m2 LVLd ap4: 8.8 cm SI(MOD-sp4): 23.6 ml/m2 LAV(MOD-sp2): 33.8 ml EDV(MOD-sp4): 71.7 ml LAV(MOD-sp4): 38.8 ml EDV(sp4-el): 71.6 ml LVAs ap4: 14.2 cm2 LVLs ap4: 7.2 cm ESV(MOD-sp4): 23.6 ml ESV(sp4-el): 24.0 ml EF(MOD-sp4): 67.2 % EF(sp4-el): 66.5 % SV(sp4-el): 47.6 ml LA A4 area: 15.7 cm2 RA A4 area: 15.0 cm2 Time Measurements MV dec time: 0.17 sec Doppler Measurements & Calculations MV E max jose: 75.9 cm/sec Lat Peak E' Jose: 11.1 cm/sec Med Peak E' Jose: 15.9 cm/sec MV A max jose: 63.4 cm/sec E/E' lat: 6.8 E/E' med: 4.8 MV E/A: 1.2 Ao V2 max: 137.8 cm/sec LV V1 max: 134.4 cm/sec PA V2 max: 165.0 cm/sec Ao max P.6 mmHg LV V1 max P.2 mmHg ECHO/Echo Complete Interpretation Summary Mild concentric left ventricular hypertrophy. The left ventricular ejection fraction is 65 %. Stage 1 diastolic dysfunction. The left atrium is mildly enlarged. Ordering Physician: Malia Hensley Referring Physician: Malia Hensley Performed By: Lisa Muñoz and Student
--- OUTSIDE RECORDS SUMMARY | 2025-04-12 21:19 | XMS RPT_ITS | CCD ---
Author Organization [facility] CliniSyut Care Team Providers Care Webmaster Name Role Phone CRISTHIAN MCLEOD Unavailable Unavailable IMCA Unavailable Unavailable DHRUV, CRISTHIAN Unavailable Unavailable IMCA Unavailable Unavailable DHRUV, CRISTHIAN Unavailable Unavailable [facility]CA Unavailable Unavailable MÓNICA CANDELARIO Unavailable Unavailabl e DHRUV, CRISTHIAN Unavailable Unavailable IMCA Unavailable Unavailable MÓNICA CANDELARIO Unavailable Unavailabl e DHRUV, CRISTHIAN Unavailable Unavailable IMCA Unavailable Unavailable MÓNICA CANDELARIO Unavailable Unavailabl e DHRUV, CRISTHIAN Unavailable Unavailable IMCA Unavailable Unavailable MÓNICA CANDELARIO Unavailable Unavailabl e DHRUV, CRISTHIAN Unavailable Unavailable DHRUV, CRISTHIAN Unavailable Unavailable MÓNICA CANDELARIO B Unavailable Unavailabl e DHRUV, CRISTHIAN Unavailable Unavailable DHRUV, CRISTHIAN Unavailable Unavailable RANMÓNICA TAPIA B Unavailable Unavailabl e DHRUV, CRISTHIAN J Unavailable Unavailable DHRUV, CRISTHIAN J Unavailable Unavailable DHRUV, CRISTHIAN J Unavailable Unavailable DHRUV, CRISTHIAN J Unavailable Unavailable DHRUV, CRISTHIAN J Unavailable Unavailable DHRUV, CRISTHIAN J Unavailable Unavailable Dr. Jerson Candelario Primary Care Provider Macey Newton Attending Provider Unavailable Dr. Jerson Candelario Referring Provider Dr. Lizandro Staley Attending Provider [phone] Dr. Lizandro Staley Other Provider Dr. Jerson Candelario Primary Care Provider Macey Newton Attending Provider Unavailable Dr. Jerson Candelario Referring Provider Dr. Lizandro Staley Attending Provider Dr. Lizandro Staley Other Provider [phone] Jerson Candelario Primary Care Provider Dr. Jerson Candelario Referring Provider Dr. Malia Hensley Attending Provider Ernesto QUALITY PROJECT MANAGER, QUALITY PROJECT MANAGERAngelaC Clarissa Attending Provider Kodak CHANDLER, Dr. Sherwood Primary Care Provider Ayden CHANDLER, Dr. Finley Attending Provider Dr. Malia Hensley MD Referring Provider Kodak CHANDLER, Dr. Sherwood Referring Provider [phone] Mónica Candelario Referring Unavailable Carlos Raphael Attending Unavailable [place], [place] [facility] Unavailable Ayden, Malia Attending Unavailable [facility], [place] [facility] Unavailable Ayden, Malia Referring Unavailable [place], [place] [facility] Unavailable Ayden, Malia Attending Unavailable Ayden, Malia Referring Unavailable Ayden, Malia Attending Unavailable [place], [place] [facility] Unavailable Ayden, Malia Referring Unavailable [place], [facility] Referring Unavailable Ayden, Malia Attending Unavailable [place], [place] [facility] Unavailable [place], [place] [facility] Unavailable Kodak, Mónica Referring Unavailable Ayden, Malia Attending Unavailable Ayden, Malia Consulting Unavailable Ayden, Malia Attending Unavailable [facility], [place] [facility] Unavailable Ayden, Malia Referring Unavailable [place], Christarmani Referring Unavailable Ayden, Malia Attending Unavailable [facility], [place] [facility] Unavailable Medications Current Medications Medication Drug Class(es) Dates Sig (Normalized) Sig (Original) aspirin 81 mg delayed release oral tablet (10 sources) Platelet Aggregation Inhibitor, Nonsteroidal Anti-inflammator y Drug Start: 9 End: 0 take 1 tablet by mouth once daily Aspirin 81 MG tablet Active 81 mg PO DAILY November 14, 2019 10:03am atorvastatin 80 mg oral tablet (20 sources) HMG-CoA Reductase Inhibitor Start: 9 End: 4 take 1 tablet by mouth at bedtime Atorvastatin 80 mg tablet Active 80 mg PO AT BEDTIME March 09, 2024 7:39am hydroCHLOROthiazide 12.5 mg oral tablet (4 sources) Thiazide Diuretic Start: 3 End: take 1 tablet by mouth once daily in the morning Hydrochlorothiazide 12.5 mg tablet Active 12.5 mg PO EVERY MORNING March 07, 2024 2:33pm lisinopril 20 mg oral tablet (20 sources) Angiotensin Converting Enzyme Inhibitor Start: End: take 1 tablet by mouth once daily Lisinopril 20 mg tablet Active 20 mg PO DAILY March 09, 2024 7:39am Start: 08-18-2023 End: 03-07-2024 take 1 tablet by mouth once daily Lisinopril 10 mg tablet Discontinued 10 mg PO DAILY August 18, 2023 12:00am March 07, 2024 2:32pm Start: 10-24-2019 End: 08-18-2023 take 1 tablet by mouth once daily Lisinopril 5 mg tablet Discontinued 5 mg PO DAILY March 15, 2023 3:09pm August 18, 2023 1:36pm nitroglycerin 0.4 mg sublingual tablet (6 sources) Nitrate Vasodilator Start: 11-14-2019 End: 03-07-2024 Nitroglycerin 0.4 mg tablet, sublingual Active 0.4 mg SL Q5M as needed for Cardiac/Chest Pain March 07, 2024 2:33pm Start: 11-14-2019 Nitroglycerin Active 0.4 MG SL Q5M November 14, 2019 1:00am Completed/Discontinued Medications Medication Drug Class(es) Dates Sig (Normalized) Sig (Original) amoxicillin 875 mg / clavulanate 125 mg oral tablet (1 source) Penicillin-class Antibacterial Start: 09-14-2024 End: 09-24-2024 Amoxicillin-Pot Clavulanate 875-125 mg tablet Discontinued 1 {tbl} PO Q12H 20 September 14, 2024 1:00am September 23, 2024 1:00am September 24, 2024 1:09am azithromycin 250 mg oral tablet (3 sources) Macrolide Antimicrobial Start: 01-04-2023 End: 08-18-2023 take 2-5 tablets by mouth once daily Azithromycin 250 mg tablet Discontinued 0 PO .COMPLEX January 04, 2023 1:00am August 18, 2023 1:10pm take 500 mg today (day 1), then 250 mg for 4 days (days 2-5) PO benzonatate 100 mg oral capsule (4 sources) Non-narcotic Antitussive Start: 09-14-2024 End: 09-27-2024 take 2 capsules by mouth three times daily as needed for cough Benzonatate 100 mg capsule Discontinued 200 mg PO THREE TIMES A DAY as needed for cough September 14, 2024 1:00am September 27, 2024 4:02pm Start: 01-04-2023 End: 08-18-2023 take 2 capsules by mouth three times daily as needed for cough Benzonatate 100 mg capsule Discontinued 200 mg PO THREE TIMES A DAY as needed for cough January 04, 2023 1:00am August 18, 2023 1:10pm Start: 01-04-2023 End: 08-18-2023 take 200 mg by mouth three times daily Benzonatate Discontinued 200 MG PO THREE TIMES A DAY January 04, 2023 1:00am August 18, 2023 1:10pm carvedilol 3.125 mg oral tablet (10 sources) alpha-Adrenergic Judson, beta-Adrenergic Judson Start: 10-24-2019 End: 11-14-2019 take 1 tablet by mouth twice daily Carvedilol 3.125 MG tablet Discontinued 3.125 mg PO TWICE A DAY November 14, 2019 10:03am November 14, 2019 10:57am clopidogrel 75 mg oral tablet (10 sources) P2Y12 Platelet Inhibitor Start: 11-11-2020 End: 09-17-2021 take 1 tablet by mouth once daily Clopidogrel (Plavix) 75 mg tablet Discontinued 75 mg PO DAILY September 17, 2021 4:29pm September 17, 2021 4:58pm methylPREDNISolone 4 mg oral tablet (1 source) Corticosteroid Start: 09-14-2024 End: 09-20-2024 take 1 tablet by mouth once Methylprednisolone (Medrol (Tylor)) 4 mg tablets,dose pack Discontinued 4 mg PO per package directions 28 04September 14, 2024 1:00am September 19, 2024 1:00am September 20, 2024 1:08am 5000 mg testosterone 0.01 mg/mg topical gel (5 sources) Androgen Start: 09-12-2017 End: 07-23-2020 Testosterone 5 GM gel in packet Discontinued 5 g TD DAILY September 12, 2017 12:00am July 23, 2020 2:58pm ticagrelor 90 mg oral tablet (15 sources) Start: 10-24-2019 End: 08-05-2021 take 1 tablet by mouth twice daily Ticagrelor 90 mg tablet Discontinued 90 mg PO TWICE A DAY 180 November 14, 2019 10:58am August 05, 2021 12:22pm Problems Active Problems Problem Classification Problem Date Documented Da te Episodic/Chronic Acute bronchitis (3 sources) Acute bronchitis; Translations: [Acute bronchitis, unspecified] 01-04-2023 Episodic Coronary atherosclerosis and other heart disease (20 sources) History of acute ST segment elevation myocardial infarction; Translations: [Old myocardial infarction] Onset: 10-08-2019 09-17-2021 Chronic Comment on above: Drug-eluting stents to the LAD and to the left circumflex. Coronary atherosclerosis and other heart disease (7 sources) Stented coronary artery; Translations: [Presence of coronary angioplasty implant and graft] Onset: 11-13-2019 11-13-2019 Episodic Comment on above: Successful Emergent Heparin/Integrilin assisted PTCA/MALIK mid LAD with a 2.5 x 38 Promus Synergy; Successful Emergent Heparin/Integrilin assisted PTCA/MALIK proximal LAD with a 2.5 x 32 Promus Synergy 10/23/19 @[facility] per DJ11/13/2019:Successful PTCA/MALIK mid LCX with a 2.5 x 28 Promus Synergy stent; Successful PCI with PTCA to the ostial OM#1 with a 2.0 x 12 Emerge balloon Disorders of lipid metabolism (13 sources) Hyperlipidemia; Translations: [Hyperlipidemia, unspecified] Onset: 12-01-2024 08-18-2023 Chronic Essential hypertension (8 sources) Hypertensive disorder; Translations: [Essential (primary) hypertension] Onset: 12-01-2024 08-18-2023 Chronic Fever of unknown origin (5 sources) Fever; Translations: [Fever, unspecified] 09-17-2021 Episodic Immunizations and screening for infectious disease (5 sources) Contact with or exposure to other viral diseases; Translations: [Exposure to COVID-19 virus] 09-17-2021 Episodic Other endocrine disorders (5 sources) Male hypogonadism; Translations: [Testicular hypofunction] 09-17-2021 Chronic Other screening for suspected conditions (not mental disorders or infectious disease) (7 sources) Patient encounter status; Translations: [Encounter for screening for malignant neoplasm of colon] Episodic Other upper respiratory disease (5 sources) Bleeding from nose; Translations: [Epistaxis] 08-14-2021 Episodic Other upper respiratory disease (5 sources) Congestion of nasal sinus; Translations: [Nasal congestion] 09-17-2021 Episodic Other upper respiratory disease (5 sources) Anterior epistaxis; Translations: [Epistaxis] 08-13-2021 Episodic Other upper respiratory disease (5 sources) Pain of nose; Translations: [Other specified disorders of nose and nasal sinuses] 08-14-2021 Episodic Skin and subcutaneous tissue infections (5 sources) Paronychia; Translations: [Paronychia] 06-29-2015 Episodic Unclassified (1 source) Unknown / UNK(Unknown) Onset: 11-09-2017 Past or Other Problems Problem Classification Problem Date Documented Da te Episodic/Chronic Fracture of lower limb (1 source) Displaced bicondylar fracture of right tibia, subsequent encounter for closed fracture with routine healing; Translations: [Displaced bicondylar fracture of right tibia, subsequent encounter for closed fracture with routine healing] Onset: 12-07-2017 Episodic Other upper respiratory infections (7 sources) Upper respiratory infection; Translations: [Acute upper respiratory infection, unspecified] Onset: 09-14-2024 12-21-2021 Episodic Unclassified (1 source) Displaced bicondylar fracture of right tibia, subsequent encounter for closed fracture with routine healing Onset: 11-09-2017 Viral infection (5 sources) COVID-19; Translations: [Severe acute respiratory syndrome coronavirus 2 (SARS-CoV-2) detected] Onset: 08-16-2021 09-17-2021 Episodic Results Test Name Value Interpretation Reference Range Facility Cardiology Visit Reporton Cardiology Visit Report [facility] [address] [place] [address] OFFICE VISIT Date of Service: 04/05/25 MR#: [id number] Acct: [id number] Name: COLBY LUNA Rep #: [id number] : 1960 Provider: Dr. Malia Hensley MD Age/Sex: 64/M Location: [facility] [place] Status: Signed HPI HPI History of Present Illness Details: This gentleman with history of coronary artery disease status post drug-eluting stents to the LAD and left circumflex, is here for follow-up visit. Denies any complaints. No chest pains. No shortness of breath. No palpitations. No orthopnea PND. No ankle edema. Intake Vital Signs 09/27/24 08:48 04/05/25 09:11 Height 5 ft 10 in 5 ft 10 in Weight: 188 lb 196 lb BMI 26.9 28.1 BP 118/75 125/74 H Blood Pressure Location Lt brachial Lt brachial Position Sitting Sitting Respiration 16 14 Pulse 71 64 Pulse Source NIBP Monitor Intake Visit Reasons: 6 M FU Paper Cone Machine Tender Required: No Accompanied by: Self Is patient in pain?: No Allergies No Known Allergies Allergy (Verified 04/05/25 13:15) Medications ???Medication ???Instructions ???Recorded ???Confirmed ???Type aspirin 81 mg tablet,delayed 81 mg PO DAILY #90 tabs 11/14/19 0 04/05/25 Rx release hydrochlorothiazide 12.5 mg tablet 12.5 mg PO QAM #90 tabs 03/07/24 04/05/25 Rx nitroglycerin 0.4 mg sublingual 0.4 mg sublingual Q5M PRN 03/07/24 04/05/25 Rx tablet Cardiac/Chest Pain ##25 atorvastatin 80 mg tablet 80 mg PO QHS #90 tabs 03/09/24 Rx lisinopril 20 mg tablet 20 mg PO DAILY #90 tabs 03/09/24 0 04/05/25 Rx Ejection fraction %: 65 Have you fallen in the past year?: No PFSH Medical History Dyslipidemia Presence of stent in coronary artery in patient with coronary artery disease Coronary artery disease Acute bronchitis Atherosclerotic heart disease of paimiut coronary artery without angina pectoris ( 10/23/19) Wears glasses High cholesterol DVT (deep venous thrombosis) Former smoker History of edema History of echocardiogram Cardiology follow-up encounter Hypertension Encounter for screening for malignant neoplasm of colon URI with cough and congestion COVID-19 virus detected (08/16/21) History of ST elevation myocardial infarction (STEMI) (10/23/19) Hyperlipidemia Congestion of nasal sinus Arteriosclerosis of coronary artery in patient with history of myocardial infarction (10/23/19) Hypogonadism in male Surgical History History of cardiac catheterization History of open reduction and internal fixation (ORIF) procedure History of colonoscopy History of open reduction and internal fixation (ORIF) procedure History of hernia repair Stented coronary artery (11/13/19) Family History Mother Myocardial infarction Father Cancer throat Social History Smoking Status: Former smoker how long ago did patient quit smokin years ago alcohol intake: never substance use type: does not use caffeine: No ROS Const Const: Negative for fatigue, weakness, headache(s) or weight gain ENT ENT: Negative for headache(s), dizziness, Nosebleed/epistaxis or balance problems Cardio Chest Pain: No Palpitations: No Edema: None Muscle aches with walking: None Resp Respiratory: Negative for SOB with activity, SOB at rest or SOB orthopnea SOB lying down GI GI: Positive for heartburn (Occ); Negative nausea or vomiting Musc Musc: Negative for muscle aches/ myalgia, muscle weakness, joint pain or balance problems Neuro Neuro: Negative for dizziness, lightheadedness, near syncope, syncope, headache(s) or weakness Endo Endo: Negative for fatigue Cardiology Exam Const Appearance: comfortable and no acute distress Nutritional Appearance: well nourished Neck Neck: no JVD Carotids: Negative bruit Chest Auscultation: Bilateral: Clear to Auscultation Cardio Rate: regular rate Rhythm: regular rhythm Heart sounds: S1 normal and S2 normal 2/6 systolic murmur noted at base. Neuro General: patient alert, patient awake and patient oriented x3 Extremities Lower Extremity Edema: None: Bilateral Supplemental Info Supplemental Information Echocardiogram 09/02/2023: Interpretation Summary The left ventricular ejection fraction is 65 %. Mildly dilated right ventricle. Echocardiogram 10/23/2019: Interpretation Summary The estimated ejection fraction is 65 %. Stage 1 diastolic dysfunction. Mild (1+) tricuspid valve insufficiency. Right ventricular systolic pressure estimated to be 29 mmHg. There is no comparison study available. Stress Test Rep (more content not included)... Normal [facility] Albumin to globulin ratioOrd ered By: Malia Hensley on 12-21-2024 Albumin/Globulin [Mass ratio] 0.8 {ratio} Low 0.9-2.4 [facility] Bilirubin, totalOrdered By: Malia Hensley on 12-21-2024 Bilirubin [Mass/Vol] 0.70 mg/dL 0.20-1.00 [facility] Comment on above: For patients on eltr ombopag therapy, use of Dimension [place] TBIL is not recommended. Blood urea nitrogen (BUN)/cr eatinine ratioOrdered By: Malia Hensley on 12-21-2024 Urea nitrogen/Creatinine [Mass ratio] 16.2 mg/mg 10-20 [facility] CPK Total, Creatine Kinaseon 12-21-2024 CPK TOTAL 87 U/L Normal 39-308 [facility] Comment on above: Performed By: #### L 500.4050, L500.4100, [id number] #### [facility] [address] [place], [address] Carbon dioxide measurementOr dered By: Malia Hensley on 12-21-2024 CO2 [Moles/Vol] 25.0 mmol/L 21.0-32.0 [facility] Chloride measurementOrdered By: Malia Hensley on 12-21-2024 Chloride [Moles/Vol] 106 mmol/L 98-107 [facility] Comprehensive Metabolic Prof ilon 12-21-2024 Albumin [Mass/Vol] 3.5 g/dL Normal 3.2-5.[address] [facility] Comment on above: Performed By: #### L 500.4050, L500.4100, [id number] #### [facility] [address] [place], [address] Albumin/Globulin [Mass ratio] 0.8 {ratio} Low 0.9-2.4 [facility] Comment on above: Performed By: #### L 500.4050, L500.4100, [id number] #### [facility] [address] [place], [address] ALK P 121 U/L High 45-117 [facility] Comment on above: Performed By: #### L 500.4050, L500.4100, [id number] #### [facility] [address] [place], [address] ALT [Catalytic activity/Vol] 41 U/L Normal 16-61 [facility] Comment on above: Performed By: #### L 500.4050, L500.4100, [id number] #### [facility] [address] [place], [address] AST [Catalytic activity/Vol] 33 U/L Normal 15-37 [facility] Comment on above: Performed By: #### L 500.4050, L500.4100, [id number] #### [facility] [address] [place], [address] Bilirubin [Mass/Vol] 0.70 mg/dL Normal 0.20-1.00 [facility] Comment on above: Result Comment: For patients on eltrombopag therapy, use of Dimension [place] TBIL is not recommended. Performed By: #### L 500.4050, L500.4100, [id number] #### [facility] [address] [place], [address] BUN/CRE 16.2 RATIO Normal 10-20 [facility] Comment on above: Performed By: #### L 500.4050, L500.4100, [id number] #### [facility] [address] [place], [address] CA,Total 9.8 mg/dL Normal 8.5-10.1 [facility] Comment on above: Performed By: #### L 500.4050, L500.4100, [id number] #### [facility] [address] [place], [address] Chloride [Moles/Vol] 106 mmol/L Normal 98-107 [facility] Comment on above: Performed By: #### L 500.4050, L500.4100, [id number] #### [facility] [address] [place], [address] CO2 [Moles/Vol] 25.0 mmol/L Normal 21.0-32.0 [facility] Comment on above: Performed By: #### L 500.4050, L500.4100, [id number] #### [facility] [address] [place], [address] Creatinine [Mass/Vol] 0.99 mg/dL Normal 0.70-1.30 [facility] Comment on above: Result Comment: The validity of the calculated GFR GFRAA in patients over 70 years has not been determined. Clinical correlation is essential. Performed By: #### L 500.4050, L500.4100, [id number] #### [facility] [address] [place], [address] EST GFR - AA 98 mL/min Normal >60 [facility] Comment on above: Result Comment: Afri can Israeli GFR Calc Performed By: #### L 500.4050, L500.4100, [id number] #### [facility] [address] [place], [address] GAP 6 Normal 5-15 [facility] Comment on above: Performed By: #### L 500.4050, L500.4100, [id number] #### [facility] [address] [place], [address] GFR/1.73 sq M.predicted among non-blacks MDRD (S/P/Bld) [Vol rate/Area] 81 mL/min/{1.73_m2} Normal >60 [facility] Comment on above: Result Comment: Non- GFR Calc Performed By: #### L 500.4050, L500.4100, [id number] #### [facility] [address] [place], [address] Globulin (S) [Mass/Vol] 4.2 g/dL Normal 2.2-4.2 [facility] Comment on above: Performed By: #### L 500.4050, L500.4100, [id number] #### [facility] [address] [place], [address] Glucose [Mass/Vol] 147 mg/dL High 74-[address] [facility] Comment on above: Result Comment: Fast ing Glucose result greater than or equal to 126 mg/dL suggests DIABETES MELLITUS per A.D.A. criteria. Performed By: #### L 500.4050, L500.4100, [id number] #### [facility] [address] [place], [address] Potassium [Moles/Vol] 4.1 mmol/L Normal 3.5-5.1 [facility] Comment on above: Performed By: #### L 500.4050, L500.4100, [id number] #### [facility] [address] [place], [address] Sodium [Moles/Vol] 137 mmol/L Normal 136-[address] [facility] Comment on above: Performed By: #### L 500.4050, L500.4100, [id number] #### [facility] [address] [place], [address] T PROT 7.7 g/dL Normal 6.4-8.2 [facility] Comment on above: Performed By: #### L 500.4050, L500.4100, [id number] #### [facility] [address] [place], [address] Urea nitrogen [Mass/Vol] 16 mg/dL Normal 7-18 [facility] Comment on above: Performed By: #### L 500.4050, L500.4100, [id number] #### [facility] [address] [place], [address] Glomerular filtration rate ( GFR) estimationOrdered By: Malia Hensley on 12-21-2024 GFR/1.73 sq M.predicted among non-blacks MDRD (S/P/Bld) [Vol rate/Area] 81 mL/min/{1.73_m2} >60 [facility] Comment on above: Non- GFR Calc Glucose measurementOrdered B y: Malia Hensley on 12-21-2024 Glucose [Mass/Vol] 147 mg/dL High 74-[address] [facility] Comment on above: Fasting Glucose resu lt greater than or equal to 126 mg/dL suggests DIABETES MELLITUS per A.D.A. criteria. High density lipoprotein (HD L) measurementOrdered By: Malia Hensley on 12-21-2024 Cholesterol in HDL [Mass/Vol] 48 mg/dL >40 [facility] Comment on above: The drugs N-Acetylcy steine and Metamizole may falsely depress this assay. Reference Range HDL <40 mg/dL Low HDL Cholesterol HDL >or= 60 mg/dL High HDL Cholesterol Laboratory - Chemistry and C hemistry - challengeOrdered By: Malia Hensley on 12-21-2024 AST [Catalytic activity/Vol] 33 U/L 15-37 [facility] Lipid Profileon 12-21-2024 Cholesterol [Mass/Vol] 158 mg/dL Normal 200 [facility] Comment on above: Result Comment: <200 mg/dL Desirable 200-240 mg/dL Borderline >240 mg/dL High Risk Performed By: #### L 500.4050, L500.4100, [id number] #### [facility] [address] [place], [address] Cholesterol in HDL [Mass/Vol] 48 mg/dL Normal [facility] Comment on above: Result Comment: The drugs N-Acetylcysteine and Metamizole may falsely depress this assay. Reference Range HDL <40 mg/dL Low HDL Cholesterol HDL >or= 60 mg/dL High HDL Cholesterol Performed By: #### L 500.4050, L500.4100, [id number] #### [facility] [address] [place], [address] Cholesterol in LDL [Mass/Vol] 82 mg/dL Normal 0-130 [facility] Comment on above: Performed By: #### L 500.4050, L500.4100, [id number] #### [facility] [address] [place], [address] Cholesterol in VLDL [Mass/Vol] 28 mg/dL Normal 5-40 [facility] Comment on above: Performed By: #### L 500.4050, L500.4100, [id number] #### [facility] [address] [place], [address] Triglyceride [Mass/Vol] 138 mg/dL Normal [facility] Comment on above: Result Comment: The drugs N-Acetylcysteine and Metamizole may falsely depress this assay. Serum Triglycerides Reference Interval Normal <150 mg/dL Borderline high 150 - 199 mg/dL High 200 - 499 mg/dL Very High > or = 500 mg/dL Performed By: #### L 500.4050, L500.4100, [id number] #### [facility] [address] [place], [address] Low density lipoprotein (LDL ) cholesterol measurementOrdered By: Malia Hensley on 12-21-2024 Cholesterol in LDL [Mass/Vol] 82 mg/dL 0-130 [facility] Potassium measurementOrdered By: Malia Hensley on 12-21-2024 Potassium [Moles/Vol] 4.1 mmol/L 3.5-5.1 [facility] Serum anion gap measurementO rdered By: Malia Hensley on 12-21-2024 Anion gap [Moles/Vol] 6 mmol/L 5-15 [facility] Serum globulin measurementOr dered By: Malia Hensley on 12-21-2024 Globulin (S) [Mass/Vol] 4.2 g/dL 2.2-4.2 [facility] Serum or plasma alanine pierson otransferase (ALT) measurementOrdered By: Malia Hensley on 12-21-2024 ALT [Catalytic activity/Vol] 41 U/L 16-61 [facility] Serum or plasma albumin tuan urement (mass/volume)Ordered By: Malia Hensley on 12-21-2024 Albumin [Mass/Vol] 3.5 g/dL 3.2-5.[address] [facility] Serum or plasma alkaline lotus sphatase measurementOrdered By: Malia Hensley on 12-21-2024 ALP [Catalytic activity/Vol] 121 U/L High 45-117 [facility] Serum or plasma calcium tuan urement (mass/volume)Ordered By: Malia Hensley on 12-21-2024 Calcium [Mass/Vol] 9.8 mg/dL 8.5-10.[address] [facility] Serum or plasma cholesterol measurement (mass/volume)Ordered By: Malia Hensley on 12-21-2024 Cholesterol [Mass/Vol] 158 mg/dL <200 [facility] Comment on above: <200 mg/dL Desirable 200-240 mg/dL Borderline >240 mg/dL High Risk Serum or plasma creatinine m easurement (mass/volume)Ordered By: Malia Hensley on 12-21-2024 Creatinine [Mass/Vol] 0.99 mg/dL 0.70-1.30 [facility] Comment on above: The validity of the calculated GFR & GFRAA in patients over 70 years has not been determined. Clinical correlation is essential. Serum or plasma urea nitroge n measurement (mass/volume)Ordered By: Malia Hensley on 12-21-2024 Urea nitrogen [Mass/Vol] 16 mg/dL 7-18 [facility] Sodium levelOrdered By: Familia Hensley on 12-21-2024 Sodium [Moles/Vol] 137 mmol/L 136-[address] [facility] Total creatine kinase measur ementOrdered By: Malia Hensley on 12-21-2024 CK [Catalytic activity/Vol] 87 U/L 39-308 [facility] Total proteinOrdered By: Karely Hensley on 12-21-2024 Protein [Mass/Vol] 7.7 g/dL 6.4-8.[address] [facility] Triglycerides measurementOrd ered By: Malia Hensley on 12-21-2024 Triglyceride [Mass/Vol] 138 mg/dL <199 [facility] Comment on above: The drugs N-Acetylcy steine and Metamizole may falsely depress this assay.Serum Triglycerides Reference Interval Normal <150 mg/dL Borderline high 150 - 199 mg/dL High 200 - 499 mg/dL Very High > or = 500 mg/dL Very low density lipoprotein (VLDL) cholesterol measurementOrdered By: Malia Hensley on 12-21-2024 Very low density lipoprotein (VLDL) cholesterol measurement 28 mg/dL 5-40 [facility] Stress Reporton 11-07-2024 Stress Report [facility] [address] [place] [address] MR#: [id number] Acct: [id number] Name: COLBY LUNA Rep #: [id number] : 1960 64 From: Malia Hensley MD Primary Care: Dr. Mónica Candelario MD Status: REG CLI Referring Dr: Malia Hensley MD Sex: M C Stress Test Report Date: 11/07/2024 Procedure: Exercise tolerance test/imaging study Indications: Coronary artery disease Consent: Per the patient Procedure: The patient exercised on a Rashi protocol for 10 minutes achieving a peak heart rate of 151 bpm (97% predicted maximal heart rate) with a peak blood pressure 180/78 mmHg and a peak MET capacity of 13.3 METs. The baseline ECG demonstrated sinus rhythm. The peak exercise ECG demonstrated no ischemic changes. There were no cardiac dysrhythmias pretest, during exercise, or recovery. The functional capacity was considered very good. There was no complaint of chest discomfort during exercise or recovery. The examination was discontinued secondary to target heart rate being achieved. The patient was injected with 11.8 mCi of technetium 99m Cardiolite and subsequently rest SPECT Cardiolite nuclear imaging was obtained in the horizontal long, vertical long, and short axis views. Post-exercise, the patient was injected with 34.4 mCi of technetium 99m Cardiolite and subsequently stress SPECT Cardiolite nuclear imaging was obtained in the horizontal long, vertical long, and short axis views. A gated Cardiolite study at peak stress was obtained. Rest and stress SPECT Cardiolite nuclear imaging status post realignment, normalization, and attenuation correction, demonstrates the appearance of relative uniform tracer uptake and myocardial perfusion appearing within normal limits. There is end systolic thickening and brightening. The gated Cardiolite study demonstrates myocardial thickening and inward wall motion. The reported LVEF is 70%. Impression: 1. Technically adequate (percent predicted maximal heart rate greater than 85%) exercise tolerance test 2. Peak exercise ECG with no ischemic changes 3. There were no cardiac dysrhythmias pretest, during exercise, or recovery 4. Rest and stress SPECT Cardiolite nuclear imaging demonstrate relative uniform tracer uptake and myocardial perfusion appearing within normal limits. 5. The gated Cardiolite study reports an LVEF of 70%. This note was generated with [employer] software. It may contain incorrect words, spelling, and punctuation that were not noted in checking the note before signing. 11/07/24940 Date Malia Hensley MD CC: Dr. Malia Hensley MD; Dr. Mónica Candelario MD Date Dictated: 11/07/24938 Date Transcribed: 11/07/24938 Handy Worker: SIMONE Signed Normal [facility] Cardiology Visit Reporton Cardiology Visit Report [facility] [address] [place] [address]. [address] [place] [address] OFFICE VISIT Date of Service: 09/27/24 MR#: [id number] Acct: [id number] Name: COLBY LUNA Rep #: [id number] : 1960 Provider: Dr. Malia Hensley MD Age/Sex: 63/M Location: [facility] Status: Signed HPI HPI History of Present Illness Details: This gentleman has a history of hypertension, dyslipidemia and coronary artery disease status post NSTEMI in 2019, status post drug-eluting stents to proximal and mid LAD and subsequently drug- eluting stent to the left circumflex in 2019, is here for follow-up visit. Denies any complaints. No chest pain. No dyspnea. Denies orthopnea or PND. No ankle edema. Tolerating atorvastatin well and denies any muscle aches or pains. Intake Vital Signs 03/07/24 14:20 09/27/24 08:48 Height 5 ft 10 in 5 ft 10 in Weight: 188 lb BMI 26.9 BP 118/75 Blood Pressure Location Lt brachial Position Sitting Respiration 16 Pulse 71 Pulse Source NIBP Intake Visit Reasons: 6 M FU Paper Cone Machine Tender Required: No Accompanied by: Self Is patient in pain?: No Allergies No Known Allergies Allergy (Verified 09/27/24 15:02) Medications ???Medication ???Instructions ???Recorded ???Confirmed ???Type aspirin 81 mg tablet,delayed 81 mg PO DAILY #90 tabs 11/14/19 09/27/24 Rx release hydrochlorothiazide 12.5 mg tablet 12.5 mg PO QAM #90 tabs 03/07/24 09/27/24 Rx nitroglycerin 0.4 mg sublingual 0.4 mg sublingual Q5M PRN 03/07/24 09/27/24 Rx tablet Cardiac/Chest Pain ##25 atorvastatin 80 mg tablet 80 mg PO QHS #90 tabs 03/09/24 09/27/24 Rx lisinopril 20 mg tablet 20 mg PO DAILY #90 tabs 03/09/24 09/27/24 Rx Ejection fraction %: 65 Have you fallen in the past year?: No PFSH Medical History Acute bronchitis Arteriosclerosis of coronary artery in patient with history of myocardial infarction (10/23/19) Atherosclerotic heart disease of paimiut coronary artery without angina pectoris ( 10/23/19) Cardiology follow-up encounter Congestion of nasal sinus Coronary artery disease COVID-19 virus detected (08/16/21) DVT (deep venous thrombosis) Dyslipidemia Encounter for screening for malignant neoplasm of colon Former smoker High cholesterol History of echocardiogram History of edema History of ST elevation myocardial infarction (STEMI) (10/23/19) Hyperlipidemia Hypertension Hypogonadism in male Presence of stent in coronary artery in patient with coronary artery disease URI with cough and congestion Wears glasses Surgical History History of cardiac catheterization History of colonoscopy History of hernia repair History of open reduction and internal fixation (ORIF) procedure History of open reduction and internal fixation (ORIF) procedure Stented coronary artery (11/13/19) Family History Mother Myocardial infarction Father Cancer throat Social History Smoking Status: Former smoker how long ago did patient quit smokin years ago alcohol intake: never substance use type: does not use caffeine: No ROS Const Const: Negative for fatigue, weakness, headache(s) or weight gain ENT ENT: Negative for headache(s), dizziness, Nosebleed/epistaxis or balance problems Cardio Chest Pain: No Palpitations: No Edema: None Muscle aches with walking: None Resp Respiratory: Negative for SOB with activity, SOB at rest or SOB orthopnea SOB lying down GI GI: Negative nausea, vomiting or heartburn Musc Musc: Negative for muscle aches/ myalgia, muscle weakness, joint pain or balance problems Neuro Neuro: Negative for dizziness, lightheadedness, near syncope, syncope, headache(s) or weakness Endo Endo: Negative for fatigue Cardiology Exam Const Appearance: comfortable and no acute distress Nutritional Appearance: well nourished Neck Neck: no JVD Carotids: Negative bruit Chest Auscultation: Bilateral: Clear to Auscultation Cardio Rate: regular rate Rhythm: regular rhythm Heart sounds: S1 normal and S2 normal 2/6 systolic murmur noted at base. Neuro General: patient alert, patient awake and patient oriented x3 Extremities Lower Extremity Edema: None: Bilateral Supplemental Info Supplemental Information Echocardiogram 09/02/2023: Interpretation Summary The left ventricular ejection fraction is 65 %. Mildly dilated right ventricle. Echocardiogram from 10/23/2019: Interpretation Summary The estimated ejection fraction is 65 %. Stage 1 diastolic dysfunction. Mild (1+) tricuspid valve insufficiency. Right ventricular systolic pres (more content not included)... Normal [facility] Urgent Care Visit Reporton 1 11-14-2023 Urgent Care Visit Report [facility] [address], [address] [place] [address] OFFICE VISIT Date of Service: 09/14/24 MR#: [id number] Acct: [id number] Name: COLBY LUNA Rep #: [id number] : 1960 Provider: CRISTINO Gilmore Age/Sex: 63/M Location: [facility] [place] Status: Signed Intake Vital Signs 03/07/24 14:20 09/14/24 08:28 Height 5 ft 10 in Weight: 193 lb BMI 27.6 BP 138/80 H 130/70 H Blood Pressure Location Lt brachial Lt brachial Position Sitting Sitting Respiration 16 16 Pulse 57 L 71 Pulse Source Auscultation NIBP Temp 98.9 F Temp Source Oral Pulse Oximetry (%) 96 Oxygen Delivery Method room air Intake Visit Reasons: Cough Chief Complaint: Cough, PND, congestion Paper Cone Machine Tender Required: No Is patient in pain?: No Allergies No Known Allergies Allergy (Verified 09/14/24 08:28) Have you fallen in the past year?: No Nurse's Note: Cough, PND, congestion x 3 weeks without resolve. declines viral testing PFSH Medical History Acute bronchitis Arteriosclerosis of coronary artery in patient with history of myocardial infarction (10/23/19) Atherosclerotic heart disease of paimiut coronary artery without angina pectoris ( 10/23/19) Cardiology follow-up encounter Congestion of nasal sinus Coronary artery disease COVID-19 virus detected (08/16/21) DVT (deep venous thrombosis) Dyslipidemia Encounter for screening for malignant neoplasm of colon Former smoker High cholesterol History of echocardiogram History of edema History of ST elevation myocardial infarction (STEMI) (10/23/19) Hyperlipidemia Hypertension Hypogonadism in male Presence of stent in coronary artery in patient with coronary artery disease URI with cough and congestion Wears glasses Surgical History History of cardiac catheterization History of colonoscopy History of hernia repair History of open reduction and internal fixation (ORIF) procedure History of open reduction and internal fixation (ORIF) procedure Stented coronary artery (11/13/19) Family History Mother Myocardial infarction Father Cancer throat Social History Smoking Status: Former smoker how long ago did patient quit smokin years ago alcohol intake: never substance use type: does not use caffeine: No HPI HPI Chief Complaint: Cough, PND, congestion Details: COLBY LUNA, is a 63 M who presents to the office today for complaint of cough, congestion and sinus pain and pressure for the past 3 weeks. Patient denies fever, chills, sweats. No nausea, vomiting or diarrhea. No hemoptysis, shortness of breath or difficulty. No loss of taste or smell. No other associated symptoms or alleviating/aggravating factors. ROS Const Constitutional: No other (6 system ROS completed with pertinent findings in the HPI otherwise normal.) Exam Const General: cooperative and healthy appearing [facility] Head: normal to inspection Ears: hearing grossly normal bilaterally, TM's normal bilaterally and EAC's normal Nose: nasal discharge purulent Face and sinus: sinus tenderness frontal and maxillary Mouth: oral mucosae normal Throat: abnormal tonsil bilaterally erythema and hypertrophy 1+ and postnasal drainage Resp Effort Inspection: normal respiratory effort Auscultation: Bilateral: Clear to Auscultation Cardio Rate: regular rate Rhythm: regular rhythm Neuro General: patient alert Psych Appearance: grossly normal Mental Status: mental status grossly normal Coding Level of Care Code Off vis,est,level 3 Diagnoses Acute sinusitis J01.90 Assessment and Plan Assessment and Plan (1) Acute sinusitis: Status: Acute Medications: New amoxicillin-pot clavulanate 875-125 mg 1 TAB PO Q12H 20 tabs 0RF 10 days J01.90 - Acute sinusitis, unspecified benzonatate 200 mg (2 x 100 mg) PO TID PRN 30 caps 0RF cough methylprednisolone (Medrol (Tylor)) 4 mg PO PER PKG DIR 21 tabs 0RF 6 days Plan Augmentin, benzonatate and Medrol Dosepak as prescribed today. Encouraged to get plenty of rest, drink lots of clear liquids, and use Tylenol or Ibuprofen (unless contraindicated) for fever and comfort. Patient also educated on other symptomatic management techniques. To be seen in 7-10 days if no improvement; sooner if worsening of symptoms. Patient advised of potential red flags and when appropriate to report to the ED. Patient verbalized understanding and agreement with all the above. Clinical Quality Measures Falls Risk Screening/Assistive Devices Have you fallen in the past year?: No 09/14/24 0833 Date (more content not included)... Normal [facility] percentageOrdered B y: Malia Hensley on 08-28-2023 Bilirubin [Mass/Vol] 0.70 mg/dL 0.20-1.00 [facility] Comment on above: For patients on eltr ombopag therapy, use of Dimension [place] TBIL is not recommended. Chloride [Moles/Vol] 103 mmol/L 98-107 [facility] Cholesterol [Mass/Vol] 127 mg/dL <200 [facility] Comment on above: <200 mg/dL Desirable 200-240 mg/dL Borderline >240 mg/dL High Risk Glucose [Mass/Vol] 121 mg/dL 74-[address] [facility] Comment on above: Fasting Glucose resu lt from 100 to 125 mg/dL suggests IMPAIRED HOMEOSTASIS per A.D.A. criteria. Potassium [Moles/Vol] 4.1 mmol/L 3.5-5.1 [facility] Protein [Mass/Vol] 7.8 g/dL 6.4-8.[address] [facility] Sodium [Moles/Vol] 139 mmol/L 136-[address] [facility] Triglyceride [Mass/Vol] 78 mg/dL <199 [facility] Comment on above: The drugs N-Acetylcy steine and Metamizole may falsely depress this assay.Serum Triglycerides Reference Interval Normal <150 mg/dL Borderline high 150 - 199 mg/dL High 200 - 499 mg/dL Very High > or = 500 mg/dL Laboratory - Chemistry and C hemistry - challengeOrdered By: Malia Hensley on 08-28-2023 ALP [Catalytic activity/Vol] 117 U/L 45-117 [facility] ALT [Catalytic activity/Vol] 50 U/L 16-61 [facility] CO2 [Moles/Vol] 29.0 mmol/L 21.0-32.0 [facility] Globulin (S) [Mass/Vol] 4.2 g/dL 2.2-4.2 [facility] Urea nitrogen/Creatinine [Mass ratio] 21.3 mg/mg 10-20 [facility] No Panel InformationOrdered By: Malia Hensley on 08-28-2023 Estimated GFR (MDRD) Amer 104 mL/min >60 [facility] Comment on above: GFR Calc Estimated GFR (MDRD) Non-Af Amer 86 mL/min >60 [facility] Comment on above: Non- GFR Calc Serum or plasma albumin tuan urement (mass/volume)Ordered By: Malia Hensley on 08-28-2023 Albumin [Mass/Vol] 3.6 g/dL 3.2-5.[address] [facility] Serum or plasma albumin/glob ulin mass ratioOrdered By: Malia Hensley on 08-28-2023 Albumin/Globulin [Mass ratio] 0.9 {ratio} 0.9-2.4 [facility] Serum or plasma calcium tuan urement (mass/volume)Ordered By: Malia Hensley on 08-28-2023 Calcium [Mass/Vol] 9.0 mg/dL 8.5-10.[address] [facility] Serum or plasma cholesterol in HDL measurement (mass/volume)Ordered By: Malia Hensley on 08-28-2023 Cholesterol in HDL [Mass/Vol] 45 mg/dL >40 [facility] Comment on above: The drugs N-Acetylcy steine and Metamizole may falsely depress this assay. Reference Range HDL <40 mg/dL Low HDL Cholesterol HDL >or= 60 mg/dL High HDL Cholesterol Serum or plasma cholesterol in VLDL measurement (mass/volume)Ordered By: Malia Hensley on 08-28-2023 Cholesterol in VLDL [Mass/Vol] 16 mg/dL 5-40 [facility] Serum or plasma creatinine m easurement (mass/volume)Ordered By: Malia Hensley on 08-28-2023 Creatinine [Mass/Vol] 0.94 mg/dL 0.70-1.30 [facility] Comment on above: The validity of the calculated GFR & GFRAA in patients over 70 years has not been determined. Clinical correlation is essential. Serum or plasma low density lipoprotein (LDL) cholesterol measurement (mass/volume)Ordered By: Malia Hensley on 08-28-2023 Cholesterol in LDL [Mass/Vol] 66 mg/dL 0-130 [facility] Serum or plasma urea nitroge n measurement (mass/volume)Ordered By: Malia Hensley on 08-28-2023 Urea nitrogen [Mass/Vol] 20 mg/dL 7-18 [facility] Thin prep Papanicolaou smear with manual screeningOrdered By: Malia Hensley on 08-28-2023 Thin prep Papanicolaou smear with manual screening 39 U/L 15-37 [facility] Thin prep Papanicolaou smear with manual screening 7 5-15 [facility] Basophil percentageon 2021 Bilirubin [Mass/Vol] 1.00 mg/dL 0.20-1.00 [facility] Work Phone: Comment on above: For patients on eltr ombopag therapy, use of Dimension [place] TBIL is not recommended. Chloride [Moles/Vol] 107 mmol/L 98-107 [facility] Work Phone: Cholesterol [Mass/Vol] 160 mg/dL <200 [facility] Work Phone: Comment on above: <200 mg/dL Desirable 200-240 mg/dL Borderline >240 mg/dL High Risk Glucose [Mass/Vol] 123 mg/dL 74-[address] [facility] Work Phone: Comment on above: Fasting Glucose resu lt from 100 to 125 mg/dL suggests IMPAIRED HOMEOSTASIS per A.D.A. criteria. Potassium [Moles/Vol] 4.4 mmol/L 3.5-5.1 [facility] Work Phone: Protein [Mass/Vol] 7.6 g/dL 6.4-8.[address] [facility] Work Phone: Sodium [Moles/Vol] 140 mmol/L 136-[address] [facility] Work Phone: [phone] Triglyceride [Mass/Vol] 162 mg/dL <199 [facility] Work Phone: Comment on above: The drugs N-Acetylcy steine and Metamizole may falsely depress this assay.Serum Triglycerides Reference Interval Normal <150 mg/dL Borderline high 150 - 199 mg/dL High 200 - 499 mg/dL Very High > or = 500 mg/dL Laboratory - Chemistry and C hemistry - challengeon 10-02-2022 ALP [Catalytic activity/Vol] 107 U/L 45-117 [facility] Work Phone: ALT [Catalytic activity/Vol] 30 U/L 16-61 [facility] Work Phone: [phone] CO2 [Moles/Vol] 27.0 mmol/L 21.0-32.0 [facility] Work Phone: [phone] Globulin (S) [Mass/Vol] 4.0 g/dL 2.2-4.2 [facility] Work Phone: [phone] Urea nitrogen/Creatinine [Mass ratio] 16.0 mg/mg 10-20 [facility] Work Phone: [phone] No Panel Informationon 10-02 Estimated GFR (MDRD) Amer 97 mL/min >60 [facility] Work Phone: [phone] Comment on above: GFR Calc Estimated GFR (MDRD) Non-Af Amer 80 mL/min >60 [facility] Work Phone: [phone] Comment on above: Non- GFR Calc Prostate Specific Antigen Total 0.54 ng/mL 0.0-4.0 [facility] Work Phone: [phone] Comment on above: This test was perfor med using the TPSA assay method for [employer] chemistry system. Values obtained with differentassay methods cannot be used interchangably.When changing PSA assays in the course of monitoring apatient, additional sequential testing should be carriedout to confirm baseline values. Serum or plasma albumin tuan urement (mass/volume)on 10-02-2022 Albumin [Mass/Vol] 3.6 g/dL 3.2-5.[address] [facility] Work Phone: [phone] Serum or plasma albumin/glob ulin mass ratioon 10-02-2022 Albumin/Globulin [Mass ratio] 0.9 {ratio} 0.9-2.4 [facility] Work Phone: [phone] Serum or plasma calcium tuan urement (mass/volume)on 10-02-2022 Calcium [Mass/Vol] 8.9 mg/dL 8.5-10.[address] [facility] Work Phone: [phone] Serum or plasma cholesterol in HDL measurement (mass/volume)on 11-25-2022 Cholesterol in HDL [Mass/Vol] 46 mg/dL >40 [facility] Work Phone: Comment on above: The drugs N-Acetylcy steine and Metamizole may falsely depress this assay. Reference Range HDL <40 mg/dL Low HDL Cholesterol HDL >or= 60 mg/dL High HDL Cholesterol Serum or plasma cholesterol in VLDL measurement (mass/volume)on 10-02-2022 Cholesterol in VLDL [Mass/Vol] 32 mg/dL 5-40 [facility] Work Phone: Serum or plasma creatinine m easurement (mass/volume)on 10-02-2022 Creatinine [Mass/Vol] 1.00 mg/dL 0.70-1.30 [facility] Work Phone: Comment on above: The validity of the calculated GFR & GFRAA in patients over 70 years has not been determined. Clinical correlation is essential. Serum or plasma low density lipoprotein (LDL) cholesterol measurement (mass/volume)on 10-02-2022 Cholesterol in LDL [Mass/Vol] 82 mg/dL 0-130 [facility] Work Phone: Serum or plasma urea nitroge n measurement (mass/volume)on 10-02-2022 Urea nitrogen [Mass/Vol] 16 mg/dL 7-18 [facility] Work Phone: Thin prep Papanicolaou smear with manual screeningon 10-02-2022 Thin prep Papanicolaou smear with manual screening 20 U/L 15-37 [facility] Work Phone: Thin prep Papanicolaou smear with manual screening 6 5-15 [facility] Work Phone: CNOVon 09-27-2018 CNOV Office Visit ([id number]) Carol LUNA ([id number]) 1960 MDate Time Provider Mappsgzgbq93/20/18 1:15 PM CRISTHIAN MCLEOD [id number] During your visit today, we recorded the following information about you: Respiration Weight Height 17/minute 78 kg 1.753 mWkuldeepam Gael Mcleod MD 09/27/2018 12:56 PM SignedChief complaint: Right knee pain.History present illness: The patient returns today follow-up in his rightbicondylar tibial plateau fracture. Overall doing well. Occasionally has someachiness in his knee. At times he has no pain in his knee whatsoever and walkswithout a limp. Very pleased with his progress. No new injuries.For the patient's past medical history, past surgical history, medications,allergies, family history, social history, and review of systems please referto medical history in chart.Physical exam: Patient is alert and oriented no acute distress. Answers allquestions properly present normal affect. Exam his right lower extremity showsall wounds to be well-healed. No signs of infection. Neurovascularly intact.Ambulatory without assistance. Full extension. Knee stable. Can flexapproximately 115?.Imaging: Please refer to the radiographic interpretation.Assessmen t: #1 right tibial plateau fracture.Plan: At this time is doing well. No activity restrictions. He will haveachiness off-and-on indefinitely. He can use uvwi-knh-gnsrfxyhljb-inf lammatories as needed. I'll see him back on an as-needed basis. If hisany problems in the future, he will contact the office. All questions wereanswered.Sammy Newton 09/27/2018 12:56 PM SignedREVIEW OF SYSTEMS:GENERAL: Well developed, well nourished. No acute distressPAIN: Negative for pain, history of chronic pain or current treatment forchronic pain conditionsCARDIOVASCULAR : Negative for chest pain, leg swelling and palpations.MSK: Negative for joint pain, swelling, back pain, muscle pain.SKIN: Negative for lesions, rash, itching, metal sensitivityNEURO: Negative for seizure, trauma, numbness/tingling of extremities.ENDOCRINE: Negative for Diabetes Type 1 and Type 2HEMATOLOGY: Negative for excessive bleeding, clots, bleeding disorders.Referring Provider: CRISTHIAN MCLEOD [[id number]]Allergies As of Date: 09/27/2018(No Known Allergies)Date Reviewed: 09/27/2018Reviewed by: Cristhian Mcleod - Fully AssessedReason for Visit: Follow Up [171] Cmt: R TIBPrimary Visit Diagnosis:Closed fracture of right tibial plateau with routine healing, subsequent encounter [S82.141D]Prescriptions as of 09/27/2018 Sig: ENOXAPARIN 30 MG/0.3 ML SUBCU* PREGABALIN 75 MG CAPSULE Take 1 capsule by mouth twice* OXYCODONE-ACETAMINOPHEN 5 MG-* Take 1 tablet by mouth every * OXYCODONE-ACETAMINOPHEN 5 MG-* Take 1 tablet by mouth every * AXIRON 30 MG/ACTUATION (1.5 M* DOCUSATE SODIUM 100 MG CAPSULE Take 1 capsule by mouth twice*Problem List As Of Date 09/27/2018 Noted Resolved INGUINAL HERNIA, UNILATERAL W/O GANGRENE/OBSTRU*INVALID FOR* Closed fracture of right tibial plateau [S82.14*INVALID FOR* More... Tibial plateau fracture, right [S82.141A] INVALID FOR*Disposition: Return if symptoms worsen or fail to improve.Follow-up and Disposition History RecordedEncounter Number: [id number] Status:Closed by CRISTHIAN MCLEOD MD on 09/27/18 [facility] PROGRESSon 09-27-2018 Protein mass conc HNO ID: [id number]: Melvin Coelho (Tech): (none)Author Type: TechnicianType: Progress NotesFiled: 09/27/2018 12:56 PMNote Text:REVIEW OF SYSTEMS:GENERAL: Well developed, well nourished. No acute distressPAIN: Negative for pain, history of chronic pain or current treatment forchronic pain conditionsCARDIOVASCULAR : Negative for chest pain, leg swelling and palpations.MSK: Negative for joint pain, swelling, back pain, muscle pain.SKIN: Negative for lesions, rash, itching, metal sensitivityNEURO: Negative for seizure, trauma, numbness/tingling of extremities.ENDOCRINE: Negative for Diabetes Type 1 and Type 2HEMATOLOGY: Negative for excessive bleeding, clots, bleeding disorders. [facility] Protein mass conc HNO ID: [id number]: Cristhian Penaloza: (none)Author Type: PhysicianType: Progress NotesFiled: 09/27/2018 12:56 PMNote Text:Chief complaint: Right knee pain.History present illness: The patient returns today follow-up in his rightbicondylar tibial plateau fracture. Overall doing well. Occasionally hassome achiness in his knee. At times he has no pain in his knee whatsoeverand walks without a limp. Very pleased with his progress. No new injuries.For the patient's past medical history, past surgical history,medications, allergies, family history, social history, and review ofsystems please refer to medical history in chart.Physical exam: Patient is alert and oriented no acute distress. Answersall questions properly present normal affect. Exam his right lowerextremity shows all wounds to be well-healed. No signs of infection.Neurovascularl y intact. Ambulatory without assistance. Full extension.Knee stable. Can flex approximately 115?.Imaging: Please refer to the radiographic interpretation.Assessmen t: #1 right tibial plateau fracture.Plan: At this time is doing well. No activity restrictions. He will haveachiness off-and-on indefinitely. He can use foln-uhl-tygpnyxwery-inf lammatories as needed. I'll see him back on an as-needed basis. Ifhis any problems in the future, he will contact the office. All questionswere answered. [facility] Office Visit (AGPOB1) Carol LUNA ([id number]) 1960 MDate Time Provider Department03/22/18 3:00 PM CRISTHIAN MCLEOD SUNSHINEB1 During your visit today, we recorded the following information about you: Respiration Weight Height 26/minute 78 kg 1.753 Sammy Veliz 03/22/2018 3:04 PM SignedREVIEW OF SYSTEMS:GENERAL: Well developed, well nourished. No acute distressPAIN: Negative for pain, history of chronic pain or current treatment forchronic pain conditionsCARDIOVASCULAR : Negative for chest pain, leg swelling and palpations.MSK: joint pain yesSKIN: Negative for lesions, rash, itching, metal sensitivityNEURO: Negative for seizure, trauma, numbness/tingling of extremities.ENDOCRINE: Negative for Diabetes Type 1 and Type 2HEMATOLOGY: Negative for excessive bleeding, clots, bleeding disorders.Cristhian Mcleod MD 03/22/2018 3:04 PM Signedchief complaint: Right knee pain.History present illness: Colby returns today for follow-up regarding his righttibial plateau fracture. This was surgically repaired in September 2017. Overalldoing well. He's been back to work. He states this is helped his recovery.Occasionally uses Advil. Has days where he has no pain at all. Denies fevers orchills.For the patient's past medical history, past surgical history, medications,allergies, family history, social history, and review of systems please referto medical history in chart.physical exam: The patient is alert and oriented no acute distress. Answers allquestions appropriately. As a normal affect. Ambulates without assistance.Examination right lower extremity shows slight varus alignment and knee.Incisions healing well. Also strength continues to improve. He can flexapproximately 110?. I'll extension. Knee is stable.Imaging: Please refer to the radiographic interpretation.Assessmen t: #1 right tibial plateau fracture.Plan: At this time is doing extremely well. He will continue to improve hisstrength and range of motion with time. He has no activity restrictions. Hewill continue with avbw-adr-nrifkqa anti-inflammatory medications as necessary.I will see him back in 6 months. If there is any problems prior to the nextappointment he will contact the office. All questions were answered.Referring Provider: SELF [200]Allergies As of Date: 03/22/2018(No Known Allergies)Date Reviewed: 03/22/2018Reviewed by: Cristhian Mcleod - Fully AssessedReason for Visit: Musculoskeletal Problem [69] Cmt: Rt. tibial plateau fx.Primary Visit Diagnosis:Closed fracture of right tibial plateau with routine healing, subsequent encounter [T39.715Q]Order(s):XR KNEE LIMITED 2V AP/LAT RT [[id number]] Order #: [id number] as of 03/22/2018 Sig: ENOXAPARIN 30 MG/0.3 ML SUBCU* PREGABALIN 75 MG CAPSULE Take 1 capsule by mouth twice* OXYCODONE-ACETAMINOPHEN 5 MG-* Take 1 tablet by mouth every * OXYCODONE-ACETAMINOPHEN 5 MG-* Take 1 tablet by mouth every * AXIRON 30 MG/ACTUATION (1.5 M* DOCUSATE SODIUM 100 MG CAPSULE Take 1 capsule by mouth twice*Problem List As Of Date 03/22/2018 Noted Resolved INGUINAL HERNIA, UNILATERAL W/O GANGRENE/OBSTRU*INVALID FOR* Tibial plateau fracture, right, closed, initial*INVALID FOR* More... Tibial plateau fracture, right [S82.141A] INVALID FOR*Disposition: Return in about 6 months (around 09/22/2018).Follow-up and Disposition History RecordedEncounter Number: [id number] Status:Closed by CRISTHIAN MCLEOD MD on 03/22/18 Normal [facility] PROGRESSon 03-22-2018 Protein mass conc HNO ID: [id number]: Cristhian Penaloza: (none)Author Type: PhysicianType: Progress NotesFiled: 03/22/2018 3:04 PMNote Text:chief complaint: Right knee pain.History present illness: Colby returns today for follow-up regarding hisright tibial plateau fracture. This was surgically repaired in September2017. Overall doing well. He's been back to work. He states this is helpedhis recovery. Occasionally uses Advil. Has days where he has no pain atall. Denies fevers or chills.For the patient's past medical history, past surgical history,medications, allergies, family history, social history, and review ofsystems please refer to medical history in chart.physical exam: The patient is alert and oriented no acute distress.Answers all questions appropriately. As a normal affect. Ambulates withoutassistance. Examination right lower extremity shows slight varus alignmentand knee. Incisions healing well. Also strength continues to improve. Hecan flex approximately 110?. I'll extension. Knee is stable.Imaging: Please refer to the radiographic interpretation.Assessmen t: #1 right tibial plateau fracture.Plan: At this time is doing extremely well. He will continue to improvehis strength and range of motion with time. He has no activityrestrictions. He will continue with urwk-idc-mulplmd anti-inflammatorymedicat ions as necessary. I will see him back in 6 months. If there is anyproblems prior to the next appointment he will contact the office. Allquestions were answered. Normal [facility] Protein mass conc HNO ID: [id number]: Tripp (Sammy) PedritoSerovidioe: (none)Author Type: TechnicianType: Progress NotesFiled: 03/22/2018 3:04 PMNote Text:REVIEW OF SYSTEMS:GENERAL: Well developed, well nourished. No acute distressPAIN: Negative for pain, history of chronic pain or current treatment forchronic pain conditionsCARDIOVASCULAR : Negative for chest pain, leg swelling and palpations.MSK: joint pain yesSKIN: Negative for lesions, rash, itching, metal sensitivityNEURO: Negative for seizure, trauma, numbness/tingling of extremities.ENDOCRINE: Negative for Diabetes Type 1 and Type 2HEMATOLOGY: Negative for excessive bleeding, clots, bleeding disorders. Normal [facility] CNPYamilka 01-18-2018 CNPN Telephone (AGPOB1) Carol LUNA ([id number]) 1960 [facility]/18/18 CRISTHIAN MCLEOD BANNERB1 During your visit today, we recorded the following information about you:Vera Norwoodswapnil 01/18/2018 10:31 AM SignedPatient would like a letter stating he can return to work on 01/24/18 with anyrestrictions he may have. I will fax the letter to his employer, .Vera Efra 2017 10:31 Adams Ramsay 01/18/2018 11:14 AM SignedLetter faxed as requested.Vera Kraus 2017 11:14 AMAllergies As of Date: 01/18/2018(No Known Allergies)Date Reviewed: 01/04/2018Reviewed by: Tiesha DanielsonTemple University HospitalJovanna Fulton - Fully AssessedReason for Visit: Return To Work Letter [[id number]]Prescriptions as of 01/18/2018 Sig: ENOXAPARIN 30 MG/0.3 ML SUBCU* PREGABALIN 75 MG CAPSULE Take 1 capsule by mouth twice* OXYCODONE-ACETAMINOPHEN 5 MG-* Take 1 tablet by mouth every * OXYCODONE-ACETAMINOPHEN 5 MG-* Take 1 tablet by mouth every * AXIRON 30 MG/ACTUATION (1.5 M* DOCUSATE SODIUM 100 MG CAPSULE Take 1 capsule by mouth twice*Problem List As Of Date 01/18/2018 Noted Resolved INGUINAL HERNIA, UNILATERAL W/O GANGRENE/OBSTRU*INVALID FOR* Tibial plateau fracture, right, closed, initial*INVALID FOR* More... Tibial plateau fracture, right [S82.141A] INVALID FOR*Letter Text Cristhian Mcleod MD [address], [facility] [id number], [facility] [id number] [facility], [address], [facility] [id number], [facility] [id number] [facility], [facility] [phone] ([phone]) [place] [facility].org.January 18, 2018Colby Luna is under my care for treatment of right tibial plateau fracture.He has been unable to attend work since September 12, 2017.He was last examined by me on January 04, 2018 and does have my permissionto return to work on January 24, 2018.Restrictions: No heavy lifting. Must be able to rest at regular intervals.No climbing.Sincerely,Lefty Mcleod M.D. Status:Closed by CRISTHIAN MCLEOD MD on 01/18/18 [facility] CNOVon 01-04-2018 [facility] Office Visit (AGPOB1) Carol LUNA ([id number]) 1960 MDate Time Provider Department01/04/18 1:45 PM CRISTHIAN MCLEOD AGPOB1 During your visit today, we recorded the following information about you: Respiration Weight Height 16/minute 83.9 kg 1.753 mWilliam Gael Mcleod MD 01/04/2018 1:46 PM SignedChief complaint: Right knee pain.History present illness: Colby returns today for follow-up regarding his righttibial plateau fracture. He had surgical fixation September 22, 2017. Overalldoing well. He is participating in physical therapy. He is weight-bear astolerated with a cane. Denies any significant pain. He does ask aboutreturning to work. Denies paresthesias. Denies fevers or chills. Still hasoccasional swelling.For the patient's past medical history, past surgical history, medications,allergies, family history, social history, and review of systems please referto medical history in chart.Physical exam: The patient's alert and oriented no acute distress. Answers allquestions are properly. As a normal affect. Examination of the right lowerextremity shows proximal and 5? short of full extension. He can flex to90-95?. Knee is stable. Slight varus alignment. Incisions healing well.Mild swelling. Compartment soft compressible.Imaging: Please refer to the radiographic interpretation.Assessmen t: #1 right tibial plateau fracture.Plan: At this time I provided him with additional prescription for physicaltherapy. He'll continue to work on strength and range of motion. In terms ofwork, I like him to continue with therapy for at least 2 more weeks. He willcontact the office when he would like to return. I'll see him back in 2months. He can use bhiq-kgx-fgbmdyb pain medication as necessary. If thereare any problems prior to the next appointment he will contact the office. Allquestions were answered.Referring Provider: SELF [200]Allergies As of Date: 01/04/2018(No Known Allergies)Date Reviewed: 01/04/2018Reviewed by: Tiesha DanielsonTemple University Hospital) Arlene - Fully AssessedReason for Visit: Follow Up [171] Cmt: Post right tibial plateau fx.Primary Visit Diagnosis:Closed fracture of right tibial plateau with routine healing, subsequent encounter [S82.141D]Order(s):XR KNEE LIMITED 2V AP/LAT RT [[id number]] Order #: [id number] CONSULT TO PHYSICAL THERAPY (AG) [[id number]] Order #: [id number]: 1Prescriptions as of 01/04/2018 Sig: ENOXAPARIN 30 MG/0.3 ML SUBCU* PREGABALIN 75 MG CAPSULE Take 1 capsule by mouth twice* OXYCODONE-ACETAMINOPHEN 5 MG-* Take 1 tablet by mouth every * OXYCODONE-ACETAMINOPHEN 5 MG-* Take 1 tablet by mouth every * AXIRON 30 MG/ACTUATION (1.5 M* DOCUSATE SODIUM 100 MG CAPSULE Take 1 capsule by mouth twice*Problem List As Of Date 01/04/2018 Noted Resolved INGUINAL HERNIA, UNILATERAL W/O GANGRENE/OBSTRU*INVALID FOR* Tibial plateau fracture, right, closed, initial*INVALID FOR* More... Tibial plateau fracture, right [S82.141A] INVALID FOR*Disposition: Return in about 2 months (around 03/04/2018).Follow-up and Disposition History RecordedEncounter Number: [id number] Status:Closed by CRISTHIAN MCLEOD MD on 01/04/18 [facility] PROGRESSon 01-04-2018 Protein mass conc HNO ID: [id number]: Cristhian Penaloza: (none)Author Type: PhysicianType: Progress NotesFiled: 01/04/2018 1:46 PMNote Text:Chief complaint: Right knee pain.History present illness: Colby returns today for follow-up regarding hisright tibial plateau fracture. He had surgical fixation September. Overall doing well. He is participating in physical therapy. Heis weight-bear as tolerated with a cane. Denies any significant pain. Hedoes ask about returning to work. Denies paresthesias. Denies fevers orchills. Still has occasional swelling.For the patient's past medical history, past surgical history,medications, allergies, family history, social history, and review ofsystems please refer to medical history in chart.Physical exam: The patient's alert and oriented no acute distress.Answers all questions are properly. As a normal affect. Examination ofthe right lower extremity shows proximal and 5? short of full extension.He can flex to 90-95?. Knee is stable. Slight varus alignment.Incisions healing well. Mild swelling. Compartment soft compressible.Imaging: Please refer to the radiographic interpretation.Assessmen t: #1 right tibial plateau fracture.Plan: At this time I provided him with additional prescription forphysical therapy. He'll continue to work on strength and range of motion. In terms of work, I like him to continue with therapy for at least 2 moreweeks. He will contact the office when he would like to return. I'll seehim back in 2 months. He can use tmqj-ytm-bwegjpc pain medication asnecessary. If there are any problems prior to the next appointment hewill contact the office. All questions were answered. [facility] Office Visit (AGPOB1) Carol LUNA ([id number]) 1960 [facility] Department12/07/17 2:15 PM CRISTHIAN MCLEOD AGPOB1 During your visit today, we recorded the following information about you: Weight Height 83.9 kg 1.753 Sammy Veliz 12/07/2017 2:19 PM SignedREVIEW OF SYSTEMS:GENERAL: Well developed, well nourished. No acute distressPAIN: Negative for pain, history of chronic pain or current treatment forchronic pain conditionsCARDIOVASCULAR : Negative for chest pain, leg swelling and palpations.MSK: joint pain yeszSKIN: Negative for lesions, rash, itching, metal sensitivityNEURO: Negative for seizure, trauma, numbness/tingling of extremities.ENDOCRINE: Negative for Diabetes Type 1 and Type 2HEMATOLOGY: Negative for excessive bleeding, clots, bleeding disorders.Cristhian Mcleod MD 12/07/2017 2:19 PM SignedSubjective: Juana returns today for follow-up regarding his bicondylartibial plateau fracture. He had surgical fixation on 09/22/2017. Overalldoing well. He is using hwfp-xyq-qrcyxjl anti-inflammatory medications forpain control. He's been nonweightbearing with crutches.Objective: Examination of his right lower extremity shows mild swelling.Incisions healing well. He can flex approximately 90?. Extensor mechanismintact. Slight varus alignment.Imaging: Please refer to the radiographic interpretation.Assessmen t: #1 right bicondylar tibial plateau fracture.Plan: At this time we will begin physical therapy. He'll work on range ofmotion and strengthening. He will continue with gxtd-nxn-avikgzz painmedication. He will ice and elevate for swelling. We will begin partialweightbearing for 1 week and then transition weight-bear as tolerated. He willcontinue to be off of work. I will see him back in 1 month. If there are anyproblems prior to this appointment they will contact the office. All questionswere answered.Referring Provider: SELF [200]Allergies As of Date: 12/07/2017(No Known Allergies)Date Reviewed: 12/07/2017Reviewed by: Tripp Major (Tech) - Shelia AssessedReason for Visit: Musculoskeletal Problem [69] Cmt: Rt. tibia plateau fx.Primary Visit Diagnosis:Closed fracture of right tibial plateau with routine healing, subsequent encounter [S88.677L]Order(s):XR KNEE LIMITED 2V AP/LAT RT [[id number]] Order #: [id number] CONSULT TO PHYSICAL THERAPY (AG) [[id number]] Order #: [id number]: 1Prescriptions as of 12/07/2017 Sig: ENOXAPARIN 30 MG/0.3 ML SUBCU* PREGABALIN 75 MG CAPSULE Take 1 capsule by mouth twice* OXYCODONE-ACETAMINOPHEN 5 MG-* Take 1 tablet by mouth every * OXYCODONE-ACETAMINOPHEN 5 MG-* Take 1 tablet by mouth every * AXIRON 30 MG/ACTUATION (1.5 M* DOCUSATE SODIUM 100 MG CAPSULE Take 1 capsule by mouth twice*Problem List As Of Date 12/07/2017 Noted Resolved INGUINAL HERNIA, UNILATERAL W/O GANGRENE/OBSTRU*INVALID FOR* Tibial plateau fracture, right, closed, initial*INVALID FOR* More... Tibial plateau fracture, right [S82.141A] INVALID FOR*Disposition: Return in about 4 weeks (around 01/04/2018).Follow-up and Disposition History RecordedEncounter Number: [id number] Status:Closed by CRISTHIAN MCLEOD MD on 12/07/17 Normal [facility] PROGRESSon 12-07-2017 Protein mass conc HNO ID: [id number]: Cristhian Penaloza: (none)Author Type: PhysicianType: Progress NotesFiled: 12/07/2017 2:19 PMNote Text:Subjective: Juana returns today for follow-up regarding his bicondylartibial plateau fracture. He had surgical fixation on 09/22/2017. Overalldoing well. He is using jcbc-gof-abukwez anti-inflammatory medicationsfor pain control. He's been nonweightbearing with crutches.Objective: Examination of his right lower extremity shows mild swelling.Incisions healing well. He can flex approximately 90?. Extensormechanism intact. Slight varus alignment.Imaging: Please refer to the radiographic interpretation.Assessmen t: #1 right bicondylar tibial plateau fracture.Plan: At this time we will begin physical therapy. He'll work on range ofmotion and strengthening. He will continue with jqex-zka-wrcozsc painmedication. He will ice and elevate for swelling. We will begin partialweightbearing for 1 week and then transition weight-bear as tolerated. Hewill continue to be off of work. I will see him back in 1 month. Ifthere are any problems prior to this appointment they will contact theoffice. All questions were answered. Normal [facility] Protein mass conc HNO ID: [id number]: Tripp Coelho (Tech): (none)Author Type: TechnicianType: Progress NotesFiled: 12/07/2017 2:19 PMNote Text:REVIEW OF SYSTEMS:GENERAL: Well developed, well nourished. No acute distressPAIN: Negative for pain, history of chronic pain or current treatment forchronic pain conditionsCARDIOVASCULAR : Negative for chest pain, leg swelling and palpations.MSK: joint pain yeszSKIN: Negative for lesions, rash, itching, metal sensitivityNEURO: Negative for seizure, trauma, numbness/tingling of extremities.ENDOCRINE: Negative for Diabetes Type 1 and Type 2HEMATOLOGY: Negative for excessive bleeding, clots, bleeding disorders. Normal [facility] CNOVon 11-09-2017 CNOV Office Visit (AGPOB1) Carol LUNA ([id number]) 1960 MDate Time Provider Department11/09/17 3:00 PM CRISTHIAN MCLEOD AGPOB1 During your visit today, we recorded the following information about you: Respiration Weight Height 14/minute 78.9 kg 1.753 Patricia Mcleod MD 11/09/2017 3:29 PM SignedSubjective: Colby returns today follow-up injury tibial plateau fracture. He hadsurgical fixation in September. He is approximately 8 weeks out. Overall doingwell. He has had nerve pain in his right lower extremity, this has improved.He's been nonweightbearing.Objecti ve: Examination right lower extremity shows to be neurovascularlyintact. Decreased knee range of motion. Mild swelling. No signs of infection.Imaging: Please refer to the radiographic interpretation.Assessmen t: #1 right tibial plateau fracture.Plan: At this time I encouraged him to perform range of motion exercises forhis right knee. We'll maintain his nonweightbearing status. I'll see him backin 4 weeks. At that time we'll repeat x-rays and consider advancing hisweightbearing. He will use sgji-evg-taxvlaf pain medication as necessary. Ifhis any problems prior to the next appointment he will contact the office. Allquestions were answered.Referring Provider: SELF [200]Allergies As of Date: 11/09/2017(No Known Allergies)Date Reviewed: 11/09/2017Reviewed by: Cristhian Mcleod - Fully AssessedReason for Visit: Follow Up [171] Cmt: Tibia fracturePrimary Visit Diagnosis:Closed fracture of right tibial plateau with routine healing, subsequent encounter [S82.141D]Order(s):XR KNEE LIMITED 2V AP/LAT RT [[id number]] Order #: [id number] as of 11/09/2017 Sig: PREGABALIN 75 MG CAPSULE Take 1 capsule by mouth twice* OXYCODONE-ACETAMINOPHEN 5 MG-* Take 1 tablet by mouth every * OXYCODONE-ACETAMINOPHEN 5 MG-* Take 1 tablet by mouth every * DOCUSATE SODIUM 100 MG CAPSULE Take 1 capsule by mouth twice* AXIRON 30 MG/ACTUATION (1.5 M*Problem List As Of Date 11/09/2017 Noted Resolved INGUINAL HERNIA, UNILATERAL W/O GANGRENE/OBSTRU*INVALID FOR* Tibial plateau fracture, right, closed, initial*INVALID FOR* More... Tibial plateau fracture, right [S82.141A] INVALID FOR*Disposition: Return in about 4 weeks (around 12/07/2017).Follow-up and Disposition History RecordedEncounter Number: [id number] Status:Closed by CRISTHIAN MCLEOD MD on 11/09/17 Normal [facility] PROGRESSon 11-09-2017 Protein mass conc HNO ID: [id number]: Cristhian Penaloza: (none)Author Type: PhysicianType: Progress NotesFiled: 11/09/2017 3:29 PMNote Text:Subjective: Colby returns today follow-up injury tibial plateau fracture.He had surgical fixation in September. He is approximately 8 weeks out.Overall doing well. He has had nerve pain in his right lower extremity,this has improved. He's been nonweightbearing.Objecti ve: Examination right lower extremity shows to be neurovascularlyintact. Decreased knee range of motion. Mild swelling. No signs ofinfection.Imaging: Please refer to the radiographic interpretation.Assessmen t: #1 right tibial plateau fracture.Plan: At this time I encouraged him to perform range of motion exercisesfor his right knee. We'll maintain his nonweightbearing status. I'll seehim back in 4 weeks. At that time we'll repeat x-rays and consideradvancing his weightbearing. He will use [id number] pain medicationas necessary. If his any problems prior to the next appointment he willcontact the office. All questions were answered. Normal [facility] Herminio 10-25-2017 CNPN Telephone (AGPOB1) Carol LUNA ([id number]) 1960 MDate Time Provider Yquzcakelr56/18/17 CRISTHIAN MCLEOD AGPOB1 During your visit today, we recorded the following information about you:Cierra Jose Luis 10/25/2017 9:17 AM SignedEleonora's called asking if there was something stronger Colby could beprescribed for his nerve pain. She said the Lyrica doesn't seem to be helping.He still have episodes of extreme pain.Cierra Solis 2016 9:16 Kaitlin Mcleod MD 10/25/2017 10:19 AM SignedThat is the only nerve medicine I use.Cierra Amaya 10/26/2017 9:43 AM SignedCalled Colby's and let her know that this is the only nerve medicine heuses. She said okay.Cierra Solis 2016 9:43 AMAllergies As of Date: 10/25/2017(No Known Allergies)Date Reviewed: 10/05/2017Reviewed by: Cristhian Mcleod - Fully AssessedReason for Visit: Medication Question [[id number]]Prescriptions as of 10/25/2017 Sig: PREGABALIN 75 MG CAPSULE Take 1 capsule by mouth twice* OXYCODONE-ACETAMINOPHEN 5 MG-* Take 1 tablet by mouth every * OXYCODONE-ACETAMINOPHEN 5 MG-* Take 1 tablet by mouth every * AXIRON 30 MG/ACTUATION (1.5 M* DOCUSATE SODIUM 100 MG CAPSULE Take 1 capsule by mouth twice*Problem List As Of Date 10/25/2017 Noted Resolved INGUINAL HERNIA, UNILATERAL W/O GANGRENE/OBSTRU*INVALID FOR* Tibial plateau fracture, right, closed, initial*INVALID FOR* More... Tibial plateau fracture, right [K92141A] INVALID FOR* Status:Closed by CRISTHIAN MCLEOD MD on 10/25/17 [facility] 10-18-2017 CNPN Telephone (AGPOB1) Carol LUNA ([id number]) 1960 MDate Time Provider Uyjiwkyugd95/11/17 CRISTHIAN MCLEOD AGPOB1 During your visit today, we recorded the following information about you:Cierra Jose Luis 10/18/2017 10:03 AM SignedPatient's called stating Colby is complaining of severe nerve pain. She saidhe can hardly sleep at night because of it. She wasn't sure if there wassomething they could be doing, or something he could be taking for it?Cierra Solis 2016 10:02 Kaitlin Mcleod MD 10/18/2017 10:30 AM SignedOrder written for Vitaliy Jose Luis 10/18/2017 11:37 AM SignedCalled patient and let him know that Dr. Mcleod ordered him Lyrica, and I hadcalled it in. I confirmed the pharmacy I called it into.Cierra Solis 2016 11:37 AMAllergies As of Date: 10/18/2017(No Known Allergies)Date Reviewed: 10/05/2017Reviewed by: Cristhian Mcleod - Fully AssessedReason for Visit: Patient Question [[id number]]Primary Visit Diagnosis:Closed fracture of right tibial plateau with routine healing, subsequent encounter [M46.141D]Order(s):prega balin (LYRICA) 75 mg capsuleTake 1 capsule by mouth twice daily.Disp: 60 capsuleRfl: 0Prescriptions as of 10/18/2017 Sig: PREGABALIN 75 MG CAPSULE Take 1 capsule by mouth twice* OXYCODONE-ACETAMINOPHEN 5 MG-* Take 1 tablet by mouth every * OXYCODONE-ACETAMINOPHEN 5 MG-* Take 1 tablet by mouth every * AXIRON 30 MG/ACTUATION (1.5 M* DOCUSATE SODIUM 100 MG CAPSULE Take 1 capsule by mouth twice*Problem List As Of Date 10/18/2017 Noted Resolved INGUINAL HERNIA, UNILATERAL W/O GANGRENE/OBSTRU*INVALID FOR* Tibial plateau fracture, right, closed, initial*INVALID FOR* More... Tibial plateau fracture, right [S82.141A] INVALID FOR*Prescriptions ordered this encounter Disp Refills Start End PREGABALIN 75 MG CAPSULE 60 c* 0 10/18/2017 Class: Call Rx Route: ORAL Sig: Take 1 capsule by mouth twice daily. Status:Closed by CRISTHIAN MCLEOD MD on 10/18/17 Normal [facility] Vital Signs Date Time Vital Sign Value Performing Clinician Nathanaeli jules 04-05-2025 09:110400 Body height 177.[address] Mónica Candelario MD Work Phone: [facility] 04-05-2025 09:11-0400 Body mass index (BMI) [Ratio] 28.1 kg/m2 Dr. Mónica Candelario MD Work Phone: [facility] 04-05-2025 09:11-0400 Body weight 88.[address] Mónica Candelario MD Work Phone: [facility] 04-05-2025 09:11-0400 Diastolic blood pressure 74 mm[Hg] Dr. Mónica Candelario MD Work Phone: [facility] 04-05-2025 09:11-0400 Heart rate 64 /min Dr. Mónica Candelario MD Work Phone: [facility] 04-05-2025 09:11-0400 Respiratory rate 14 /min Dr. Mónica Candelario MD Work Phone: [facility] 04-05-2025 09:11-0400 Systolic blood pressure 125 mm[Hg] Dr. Mónica Candelario MD Work Phone: [facility] 08-18-2023 13:04-0400 Body height 177.[address] Jerson Candelario Work Phone: [facility] 08-18-2023 13:04-0400 Body mass index (BMI) [Ratio] 27.2 kg/m2 Dr. Jerson Candelario Work Phone: [facility] 08-18-2023 13:04-0400 Body weight 86.[address] Jerson Candelario Work Phone: [facility] 08-18-2023 13:04-0400 Diastolic blood pressure 84 mm[Hg] Dr. Jreson Candelario Work Phone: [facility] 08-18-2023 13:04-0400 Heart rate 66 /min Dr. Jerson Candelario Work Phone: [facility] 08-18-2023 13:04-0400 Respiratory rate 16 /min Dr. Jerson Candelario Work Phone: [facility] 08-18-2023 13:04-0400 Systolic blood pressure 153 mm[Hg] Dr. Jerson Candelario Work Phone: [facility] 08-07-2022 07:27-0400 Body temperature 99.5 [degF] Dr. Jerson Candelario Work Phone: [facility] Work Phone: 08-07-2022 07:27-0400 Diastolic blood pressure 70 mm[Hg] Dr. Jerson Candelario Work Phone: [facility] Work Phone: 08-07-2022 07:27-0400 Heart rate 67 /min Dr. Jerson Candelario Work Phone: [facility] Work Phone: 08-07-2022 07:27-0400 Respiratory rate 18 /min Dr. Jerson Candelario Work Phone: [facility] Work Phone: 08-07-2022 07:27-0400 SaO2% (BldA) [Mass fraction] 95 % Dr. Jerson Candelario Work Phone: [facility] Work Phone: 08-07-2022 07:27-0400 Systolic blood pressure 123 mm[Hg] Dr. Jerson Candelario Work Phone: [facility] Work Phone: 08-07-2022 06:23-0400 Body height 177.[address] Jerson Candelario Work Phone: [facility] Work Phone: 08-07-2022 06:23-0400 Body mass index (BMI) [Ratio] 26.2 kg/m2 Dr. Jerson Candelario Work Phone: [facility] Work Phone: 08-07-2022 06:23-0400 Body weight 83.[address] Jerson Candelario Work Phone: [facility] Work Phone: 06-25-2022 11:41-0400 Body mass index (BMI) [Ratio] 27.2 kg/m2 Dr. Jerson Candelario Work Phone: [facility] Work Phone: 06-25-2022 11:41-0400 Body weight 86.[address] Jerson Candelario Work Phone: [facility] Work Phone: Encounters Encounter Date Encounter Type Care Provider Facility Start: 04-12-2025 ambulatory Malia Hensley Facility:[facility] Start: 04-05-2025 End: 04-05-[address] Malia Hensley MD -[facility] Work Phone: Start: 04-05-2025 End: 04-05-[address] Mónica Candelario MD Work Phone: [facility] Work Phone: Start: 12-21-2024 End: 12-21-[address] Malia Hensley MD -Laboratory Work Phone: Start: 12-21-2024 End: 12-21-2024 ambulatory Malia Ayden Facility:[facility]: [facility] Start: 11-07-2024 End: 11-07-2024 ambulatory [facility] Facility:[facility] Start: 09-27-2024 End: 09-[facility] Start: 09-20-2024 [facility] Start: 09-14-2024 End: 09-14-2024 ambulatory [facility] Start: 09-03-2023 Non-patient / Non-visit Dr. Jerson Candelario Work Phone: [facility] Work Phone: Start: 09-02-2023 Non-patient / Non-visit Dr. Jerson Candelario Work Phone: [facility] Start: 09-02-2023 End: 09-02-[address] Jerson Candelario Work Phone: [facility] Work Phone: Start: 09-02-2023 End: 09-02-[address] Jerson Candelario Work Phone: [facility] Work Phone: Start: 08-28-2023 End: 08-28-[address] Jerson Candelario Work Phone: [facility] Work Phone: Start: 08-28-2023 End: 08-28-[address] Jerson Candelario Work Phone: [facility]Laboratory Work Phone: Start: 08-18-2023 End: 08-18-[address] Jerson Candelario Work Phone: [facility] Work Phone: Start: 10-02-2022 End: 10-02-[address] Jerson Candelario Work Phone: [facility] Work Phone: Start: 10-02-2022 End: 10-02-[address] Jerson Candelario Work Phone: [facility]Laboratory Start: 08-07-2022 Non-patient / Non-visit Dr. Jerson Candelario Work Phone: [facility] Start: 08-07-2022 End: 08-07-2022 Admission to same day surgery center Dr. Jerson Candelario Work Phone: [facility]-Endoscopy Start: 08-07-2022 End: 08-07-[address] Jerson Candelario Work Phone: [facility] Work Phone: Start: 06-25-2022 Non-patient / Non-visit Dr. Jerson Candelario Work Phone: [facility] Start: 09-27-2018 End: 09-27-2018 Patient encounter procedure CRISTHIAN MCLEOD Facility:[facility] Start: 03-22-2018 End: 03-22-2018 Patient encounter procedure CRISTHIAN MCLEOD Facility:[facility] Start: 03-08-2018 Patient encounter procedure CRISTHIAN MCLEOD Facility:[facility] Start: 01-04-2018 End: 01-04-2018 Patient encounter procedure CRISTHIAN MCLEOD Facility:[facility] Start: 12-07-2017 End: 12-07-2017 Patient encounter procedure CRISTHIAN MCLEOD Facility:[facility] Start: 11-09-2017 End: 11-09-2017 Patient encounter procedure CRISTHIAN MCLEOD Facility:[facility] Start: 11-02-2017 Patient encounter procedure CRISTHIAN MCLEOD Facility:[facility] Procedures Date Procedure Procedure Detail Performing Clinician Start: 12-21-2024 Measurement of renal function Dr. Mónica Candelario MD Work Phone: Comment on above: GFR Calc Start: 08-07-[address] Faraz Candelario Work Phone: Plan of Treatment Date Care Activity Detail Author Start: 08-07-2022 Colonoscopy flx dx w/collj spec when pfrmd DIAGNOSTIC COLONOSCOPY [facility] Work Phone: Start: 08-07-2022 Patient discharge [facility] Work Phone: Colonoscopy [facility] Work Phone: Patient referral [facility] Work Phone: [facility] Immunizations Immunization Date Immunization Notes Care Provider Fa cility 02-07-2021 Covid (Pfizer) Dr. Jeremiah Candelario Work Phone: [facility] 01-17-2021 Covid (Pfizer) Dr. Jeremiah Candelario Work Phone: [facility] 09-08-[address] Jerson Candelario Work Phone: [facility] Payers Date Payer Category Payer Unknown [id number] 2024 Self-pay [id number] 2024 Unknown [id number] 1960 Unknown [id number] 2.16.8 [id number] 1960 Unknown [id number] 2.16.8 [id number] 1960 Unknown [id number] 2.16.8 [id number] 1960 Unknown [id number] 2.16.8 [id number] 1960 Unknown [id number] 2.16.8 40.1.026529.3.579.2.278 1960 Unknown [id number] 2.16.8 40.1.447549.3.579.2.278 1960 Unknown [id number] 2.16.8 40.1.479126.3.579.2.278 1960 Unknown [id number] 2.16.8 [id number] Medicare MEDICARE PART A B [id number] Unknown [id number] Unknown [id number] 2.16.8 [id number] Unknown [id number] 2.16.8 [id number] Unknown [id number] 2.16.8 40.1.100646.3.579.2.462 Unknown [id number] 2.16.8 [id number] Unknown [id number] 2.16.8 40.1.299107.3.579.2.462 Unknown [id number] 2.16.8 [id number] Unknown [id number] 2.16.8 [id number] Unknown [id number] 2.16.8 [id number] Social History Date Type Detail Facility Start: 08-05-2022 End: 08-18-2023 Tobacco smoking status NHIS Unknown if ever smoked [facility] Start: 1960 Sex Assigned At Male [facility] Start: 08-18-2023 Tobacco smoking stat us SDIS Ex-smoker (finding) [facility] Goals Date Patient Goal Desired Activity /State Mental Status Date Assessment Result Facility 08-07-2022 Cognitive function Drowsy [facility] Work Phone: Progress note 04-05-2025 Note Date & Type Note Facility 04-05-2025 Progress note [facility] Progress note 04-05-2025 Note Date & Type Note Facility 04-05-2025 Progress note Note Date/Time April 05, 2025 1:30pm [facility] [address] [place] [address] OFFICE VISIT Date of Service: 04/05/25 MR#: [id number] Acct: [id number] Name: COLBY LUNA Rep #: [id number] : 1960 Provider: Dr. Familia Hensley MD Age/Sex: 64/M Location: [facility] Status: Signed HPI HPI History of Present Illness Details: This gentleman with history of coronary artery disease status post drug-eluting stents to the LAD and left circumflex, is here for follow-up visit. Denies any complaints. No chest pains. No shortness of breath. No palpitations. No orthopnea PND. No ankle edema. Intake Vital Signs 09/27/24 08:48 04/05/25 09:11 Height 5 ft 10 in 5 ft 10 in Weight: 188 lb 196 lb BMI 26.9 28.1 BP 118/75 125/74 H Blood Pressure Location Lt brachial Lt brachial Position Sitting Sitting Respiration 16 14 Pulse 71 64 Pulse Source NIBP Monitor Intake Visit Reasons: 6 M FU Paper Cone Machine Tender Required: No Accompanied by: Self Is patient in pain?: No Allergies No Known Allergies Allergy (Verified 04/05/25 13:15) Medications ?Medication ?Instructions ?Recorded ?Confirmed ?Type aspirin 81 mg tablet,delayed 81 mg PO DAILY #90 tabs 0 11/14/19 04/05/25 Rx release hydrochlorothiazide 12.5 mg tablet 12.5 mg PO QAM #90 tabs 03/07/24 04/05/25 Rx nitroglycerin 0.4 mg sublingual 0.4 mg sublingual Q5M PRN 03/07/24 04/05/25 Rx tablet Cardiac/Chest Pain ##25 atorvastatin 80 mg tablet 80 mg PO QHS #90 tabs 04/05/25 Rx lisinopril 20 mg tablet 20 mg PO DAILY #90 tabs 01/0104/05/25 Rx Ejection fraction %: 65 Have you fallen in the past year?: No PFSH Medical History Dyslipidemia Presence of stent in coronary artery in patient with coronary artery disease Coronary artery disease Acute bronchitis Atherosclerotic heart disease of paimiut coronary artery without angina pectoris (~10/23/19) Wears glasses High cholesterol DVT (deep venous thrombosis) Former smoker History of edema History of echocardiogram Cardiology follow-up encounter Hypertension Encounter for screening for malignant neoplasm of colon URI with cough and congestion COVID-19 virus detected (08/16/21) History of ST elevation myocardial infarction (STEMI) (10/23/19) Hyperlipidemia Congestion of nasal sinus Arteriosclerosis of coronary artery in patient with history of myocardial infarction (10/23/19) Hypogonadism in male Surgical History History of cardiac catheterization History of open reduction and internal fixation (ORIF) procedure History of colonoscopy History of open reduction and internal fixation (ORIF) procedure History of hernia repair Stented coronary artery (11/13/19) Family History Mother Myocardial infarction Father Cancer throat Social History Smoking Status: Former smoker how long ago did patient quit smokin years ago alcohol intake: never substance use type: does not use caffeine: No ROS Const Const: Negative for fatigue, weakness, headache(s) or weight gain ENT ENT: Negative for headache(s), dizziness, Nosebleed/epistaxis or balance problems Cardio Chest Pain: No Palpitations: No Edema: None Muscle aches with walking: None Resp Respiratory: Negative for SOB with activity, SOB at rest or SOB orthopneaundefinedSOB lying down GI GI: Positive for heartburn (Occ); Negative nausea or vomiting Musc Musc: Negative for muscle aches/ myalgia, muscle weakness, joint pain or balanceproblems Neuro Neuro: Negative for dizziness, lightheadedness, near syncope, syncope, headache(s) or weakness Endo Endo: Negative for fatigue Cardiology Exam Const Appearance: comfortable and no acute distress Nutritional Appearance: well nourished Neck Neck: no JVD Carotids: Negative bruit Chest Auscultation: Bilateral: Clear to Auscultation Cardio Rate: regular rate Rhythm: regular rhythm Heart sounds: S1 normal and S2 normal 2/6 systolic murmur noted at base. Neuro General: patient alert, patient awake and patient oriented x3 Extremities Lower Extremity Edema: None: Bilateral Supplemental Info Supplemental Information Echocardiogram 09/02/2023: Interpretation Summary The left ventricular ejection fraction is 65 %. Mildly dilated right ventricle. Echocardiogram 10/23/2019: Interpretation Summary The estimated ejection fraction is 65 %. Stage 1 diastolic dysfunction. Mild (1+) tricuspid valve insufficiency. Right ventricular systolic pressure estimated to be 29 mmHg. There is no comparison study available. Stress Test Report 11/07/2024: Procedure: Exercise tolerance test/imaging study Indications: Coronary artery disease Consent: Per the patient Procedure: The patient exercised on a Rashi protocol for 10 minutes achieving a peak heart rate of 151 bpm (97% predicted maximal heart rate) with a peak blood pressure 180/78 mmHg and a peak MET capacity of 13.3 METs. The baseline ECG demonstrated sinus rhythm. The peak exercise ECG demonstrated no ischemic changes. There were no cardiac dysrhythmias pretest, during exercise, or recovery. The functional capacity was considered very good. There was no complaint of chest discomfort during exercise or recovery. The examination was discontinued secondary to target heart rate being achieved. The patient was injected with 11.8 mCi of technetium 99m Cardiolite and subsequently rest SPECT Cardiolite nuclear imaging was obtained in the horizontal long, vertical long, and short axis views. Post-exercise, the patient was injected with 34.4 mCi of technetium 99m Cardiolite and subsequently stress SPECT Cardiolite nuclear imaging was obtained in the horizontal long, vertical long, and short axis views. A gated Cardiolite study at peak stress was obtained. Rest and stress SPECT Cardiolite nuclear imaging status post realignment, normalization, and attenuation correction, demonstrates the appearance of relative uniform tracer uptake and myocardial perfusion appearing within normal limits. There is end systolic thickening and brightening. The gated Cardiolite study demonstrates myocardial thickening and inward wall motion. The reported LVEF is70%. Impression: 1. Technically adequate (percent predicted maximal heart rate greater than 85%)exercise tolerance test 2. Peak exercise ECG with no ischemic changes 3. There were no cardiac dysrhythmias pretest, during exercise, or recovery 4. Rest and stress SPECT Cardiolite nuclear imaging demonstrate relative uniform tracer uptake and myocardial perfusion appearing within normal limits. 5. The gated Cardiolite study reports an LVEF of 70%. Cardiac Intervention 11/13/2019: CONCLUSIONS Successful PTCA/MALIK mid LCX with a 2.5 x 28 Promus Synergy stent; 85%-->0%, no dissection. Successful PCI with PTCA to the ostial OM#1 with a 2.0 x 12 Emerge balloon; 85%-->30%, no dissection. Cardiac Intervention 10/23/2019: CONCLUSIONS Double vessel CAD of the LAD and LCX Non obstructive coronary arteries Segmented LV systolic dysfunction- Mild LVEF: by LV gram 50. % Elevated Left Ventricular End Diastolic Pressure Successful Emergent Heparin/Integrilin assisted PTCA/MALIK mid LAD with a 2.5 x 38Promus Synergy, post dilated throughout at 8-9 atim with a 3.0 x 8 NC balllon; 85%-->0%, no dissection. Successful Emergent Heparin/Integrilin assisted PTCA/MALIK proximal LAD with a 2.5 x 32 Promus Synergy, post dilated throughout with a 3.0 x 8 NC balloon at 10-15 jaimie; 85%-->0%, no dissection or encroachment into DIAG vessels. Assessment and Plan Assessment and Plan (1) Coronary artery disease: Status: Chronic Plan: History of NSTEMI. History of drug-eluting stents to the LAD and to the left circumflex. Normal LV systolic function. Aspirin. Statins. (2) Presence of stent in coronary artery in patient with coronary artery disease: Status: Chronic Comment: Drug-eluting stents to the LAD and to the left circumflex. Plan: Continue aspirin. (3) Hypertension: Status: Chronic Plan: Lisinopril, hydrochlorothiazide. (4) Dyslipidemia: Status: Chronic Plan: Atorvastatin. Plan Check echocardiogram. Plan Details Follow Up: 6 Months Coding Level of Care Code Off vis,est,level 4 Diagnoses Coronary artery disease I25.10 Presence of stent in coronary artery in patient with coronary artery disease I25.10; Z95.5 Hypertension I10 Dyslipidemia E78.5 Coding Level of Care Code Off vis,est,level 4 Diagnoses Coronary artery disease I25.10 Presence of stent in coronary artery in patient with coronary artery disease I25.10; Z95.5 Hypertension I10 Dyslipidemia E78.5 Clinical Quality Measures Falls Risk Screening/Assistive Devices Have you fallen in the past year?: No Cardiac Ejection fraction %: 65 04/05/25 1330 <Electronically signed by Malia Hensley MD> Date _ Malia Hensley MD Cosigner Signature: Date (if applicable) CC: ~ [facility] Work Phone: Evaluation note Note Date & Type Note Facility Evaluation note Diagnosis Onset Date Encounter for screening for malignant neoplasm of colon [facility] Work Phone: Evaluation note Note Date & Type Note Facility Evaluation note Diagnosis Onset Date Coronary artery disease managed care manager seymour Dyslipidemia chronic Hypertension chronic Presence of stent in coronar y artery in patient with coronary artery disease chr onic [facility] Work Phone: Evaluation note Note Date & Type Note Facility Evaluation note Diagnosis Onset Date Resolution Coronary artery disease chronic M ay 2024 1:02pm Dyslipidemia chronic April 05 1:02pm Hypertension chronic April 05 1:02pm Presence of stent in coronary artery in patient with coronary artery disease chronic April 05, 2025 1 :02pm [facility] Work Phone: Reason for referral (narrative) Note Date & Type Note Facility Reason for referral (narrative) No reason for referral information available [facility] Work Phone: Summary Purpose Family History No Family History Records Found Relationship Condition Age at Onset Recorded Date/T ava mother Myocardial infarction Unknown father Malignant neoplasm Unknown Advance Directives No Advanced Directives Records Found Advance Directive Response Recorded Date/ Time Advance Directives No November 13, 2019 11:37am Living Will No August 05, 2022 11:42am Power of Television Presenter No July 11:42am Advance Directive Response Recorded Date/ Time Advance Directives No November 13, 2019 10:37am Living Will No August 05, 2022 10:42am Power of Television Presenter No July 10:42am Advance Directive Response Recorded Date/ Time Advance Directives No November 13, 2019 11:37am Chief Complaint and Reason for Visit Chief Complaint Amb Documentation Reason for Visit Encounter for screen ing for malignant neoplasm of colon Chief Complaint Amb Documentation INT LABS Reason for Visit Encounter for screen ing for malignant neoplasm of colon Chief Complaint 1 y fu PREV PFM PT Reason for Visit Coronary artery dise ase Dyslipidemia Hypertension Presence of stent in coronary artery in patient with coronary artery disease Chief Complaint 1 y fu PREV PFM PT Essential (primary) hypertension Amb Documentation Reason for Visit Coronary artery dise ase Dyslipidemia Hypertension Presence of stent in coronary artery in patient with coronary artery disease Chief Complaint Admit Date 6 M FU April 05, 2025 1:02p m Reason for Visit Admit Date Coronary artery disease April 05, 2025 1 :02pm Dyslipidemia April 05, 2025 1:02p m Hypertension April 05, 2025 1:02p m Presence of stent in coronar y artery in patient with coronary artery disease April 05, 2025 1:02pm Additional Source Comments (unrecognized sect ion and content) No Status Records FoundNo Status Records FoundNo Status Records Found INFORMATION SOURCE (unrecogn ized section and content) DATE CREATED AUTHOR 10/17/2018 [facility] DATE CREATED AUTHOR AUTHOR'S ORGANIZ ATION 10/17/2018 [facility] DATE CREATED AUTHOR AUTHOR'S ORGANIZ ATION [facility]10[facility]20[facility] Care Teams (unrecognized sec tion and content) Team Status: Active Member Role Status Dates Dr. Jerson Candelario MD Family Provider Active Dr. Jerson Candelario MD Primary Care Provider Activ e Team Status: Inactive Member Role Status Dates Dr. Jerson Candelario MD Primary Care Provider, Refe ing Provider Active Dr. Malia Hensley MD Attending Provider Active Team Status: Inactive Member Role Status Dates Dr. Jerson Candelario MD Primary Care Provider Activ e Dr. Malia Hensley MD Attending Provider Active Team Status: Active Member Role Status Dates Dr. Jerson Candelario MD Primary Care Provider Activ e Dr. Malia Hensley MD Attending Provider Active Team Status: Active Member Role Status Dates Dr. Jerson Candelario MD Primary Care Provider Activ e Clarissa Orozco QUALITY PROJECT MANAGER, QUALITY PROJECT MANAGER-C Attending Provider Active Team Status: Inactive Member Role Status Dates Dr. Jerson Candelario MD Primary Care Provider Activ e Dr. Malia Hensley MD Attending Provider, Referring Pr ovider Active Team Status: Active Member Role Status Dates Dr. Mónica Candelario MD Family Provider Active Dr. Mónica Candelario MD Primary Care Provider Acti ve Team Status: Inactive Member Role Status Dates Dr. Mónica Candelario MD Primary Care Provider Acti ve Start: December 21, 2024 End: December 21, 2024 Dr. Malia Hensley MD Attending Provider Active Start: December 21, 2024 End: December 21, 2024 Dr. Malia Hensley MD Referring Provider Active Start: December 21, 2024 End: December 21, 2024 Team Status: Inactive Member Role Status Dates Dr. Mónica Candelario MD Primary Care Provider Acti ve Start: April 05, 2025 End: April 05, 2025 Dr. Mónica Candelario MD Referring Provider Active Start: April 05, 2025 End: April 05, 2025 Dr. Malia Hensley MD Attending Provider Active Start: April 05, 2025 End: April 05, 2025 Goals (unrecognized section and content) Goals may be documented in a n alternate sectionGoals may be documented in an alternate sectionGoals may be documented in an alternate section FOR RECORDS PERTAINING TO PATIENTS WHO ARE OR HAVE BEEN ENROLLED IN A CHEMICAL DEPENDENCY/SUBSTANCEABUSE PROGRAM, SOME INFORMATION MAY BE OMITTED. This clinical summary was aggregated from multiple sources. Caution should be exercised in using it in the provision of clinical care. This summary normalizes information from multiple sources, and as a consequence, information in this document may materially change the coding, format and clinical context of patient data. In addition, data may be omitted in some cases. CLINICAL DECISIONS SHOULD BE BASED ON THE PRIMARY CLINICAL RECORDS. [employer] provides no warranty or guarantee of the accuracy or completeness of information in this document.
== END | disposition home or self-care (01) ==
PROVIDERS: PCP Family Medicine; Referring Provider Internal Medicine Cardiovascular Disease; Visit Provider Internal Medicine Cardiovascular Disease
DX: I25.10 Atherosclerotic heart disease of native coronary artery without angina pectoris (principal)
CPT/HCPCS: 93306

== ENCOUNTER → 2025-10-03 | Outpatient (CLI) | payer MEDICARE, SELFPAY ==
[2020-01-08 13:20] VITALS: BMI 28.1
== END | disposition home or self-care (01) ==
LOC: LAB 11:25
PROVIDERS: PCP Family Medicine; Referring Provider Family Medicine; Visit Provider Family Medicine
DX: Z00.00 Encounter for general adult medical examination without abnormal findings (principal)